=== PATIENT | male | born 1935 ===

== ENCOUNTER 2017-11-08 10:29 | Inpatient (IN) | payer MEDICARE ==
[2017-11-08 10:49] VITALS: BMI 22.6
[2017-11-08] MEDS ORDERED: Sodium Chloride 0.9% 1,000 ML IV STA (11:02)
--- NOTE | 2017-11-08 11:07 | ED PDOC ---
HPI: SOB/CHF/COPD Time Seen by Provider: 11/08/17 10:44 Chief Complaint (Nursing): Shortness Of Breath Chief Complaint (Provider): shortness of breath History Per: Patient, Pathology Tech (RN) History/Exam Limitations: other (poor historian) Onset/Duration Of Symptoms: Days (2 days), Waxing/Waning, Gradual Current Symptoms Are (Timing): Still Present Initiating Event: Upper Respiratory Illness Exacerbating Factor(s): Coughing Current Respiratory Medications: Albuterol Severity: Severe Associated Symptoms: Chills, Productive Cough, Heart Racing, Dizziness Additional Complaint(s): 82yo male arrives via EMS c/o SOB and dizziness, states "had the flu" about 2 weeks ago, self-treated, no Rx medications taken and didnt see PMD, last 2 days "feeling worse" associated w cough, dizziness and generalized weakness. Per EMS has Rx medications at home but bottles just labeled "heart and pain", unsure what medications were. Patient is poor historian and unable to verbalize his prior history. Per [facility] first time in [facility] ED. PMD Gastell? (also sees a homeopathic doctor?) Past Medical History Reviewed: Historical Data, Nursing Documentation, Vital Signs, Unable To Obtain (poor historian) Vital Signs: Last Vital Signs Temp 98.2 F 11/12/17 12:00 Pulse 158 H 11/12/17 14:19 Resp 16 11/12/17 12:00 BP 129/80 11/12/17 12:00 Pulse Ox 97 11/12/17 12:00 - Family History Family History: States: Unknown Family Hx - Living Arrangements Living Arrangements: With Family - Social History Current smoker - smoking cessation education provided: No - Home Medications Home Medications: Ambulatory Orders Medication Instructions Recorded Albuterol/Ipratropium [Duoneb 3 3 ml IH Q6H PRN 11/08/17 mg/0.5 mg (3 ml) UD] - Allergies Allergies/Adverse Reactions: Allergies Allergy/AdvReac Type Severity Reaction Status Date / Time No Known Allergies Allergy Verified 11/08/17 11:01 Review of Systems Constitutional: Positive for: Weakness, Malaise Eyes: Negative for: Eyelid Inflammation ENT: Positive for: Throat Pain. Negative for: Ear Pain Cardiovascular: Positive for: Palpitations, Orthopnea Respiratory: Positive for: Cough, Shortness of Breath, Pleuritic Pain Gastrointestinal: Negative for: Abdominal Pain Genitourinary Male: Negative for: Dysuria Musculoskeletal: Negative for: Neck Pain, Leg Pain Skin: Negative for: Rash, Lesions Neurological: Positive for: Weakness (generalized). Negative for: Change in Speech, Seizures, Dizziness Physical Exam - Reviewed Nursing Documentation Reviewed: Yes Vital Signs Reviewed: Yes - Physical Exam Appears: Positive for: Non-toxic Head Exam: Positive for: ATRAUMATIC, NORMAL INSPECTION, NORMOCEPHALIC Skin: Positive for: Normal Color, Warm, DRY Eye Exam: Positive for: EOMI, Normal appearance, PERRL ENT: Positive for: Normal ENT Inspection Neck: Positive for: Normal, Painless ROM Cardiovascular/Chest: Positive for: Tachycardia, Irregularly Irregular Respiratory: Positive for: Rhonchi, Respiratory Distress (mild), Other (+ tachypnea) Gastrointestinal/Abdominal: Positive for: Bowel Sounds, Soft. Negative for: Tenderness Back: Positive for: Normal Inspection Extremity: Positive for: Normal ROM. Negative for: Calf Tenderness, Swelling Neurologic/Psych: Positive for: Alert. Negative for: Motor/Sensory Deficits ( no assymetry), Aphasia, Facial Droop - Laboratory Results Result Diagrams: 11/12/17 04:20 11/12/17 04:20 - ECG ECG: Positive for: Interpreted By Me ECG Rhythm: Positive for: Atrial Fibrillation, ST/T Changes (lateral), Nonspecific Changes Interpretation Of ECG: RVR Rate: 158 - Radiology X-Ray: Interpreted by Ia X-Ray Interpretation: Infiltrates - Critical Care Total Time (In Min): 90 Comments: patient required immediate and persisent bedside attention for respiratory failure and unstable vitals Medical Decision Making Medical Decision Making: workup initiated for Afib w RVR in setting of reported recent URI/ flu like symptoms. Unclear history, denies prior knowledge of Afib? BP borderline, IVF bolus initiated BP improved after 500ml and cardizem 10mg iv given w improvement of HR labs reviewed, lactate 3.5 WBC normal moderate anemia mild elev transaminases marked elev BNP 12K trop neg BP remained borderline but RVR persisted, digoxin load initiated CXR grossly abnormal w pleural thickening and bilateral patchy infiltrates CT chest ordered, +fibrosis with honeycombing, possible underlying infectious process also Antibiotics initiated vanco/zosyn after blood cultures obtained Dr Blake covering PMD Dr Gastell contacted for admission Repeat lactate improved but remains in Afib w RVR and borderline BP Admit ICU d/w Dr Dickinson approx 230p 445p Dr Dickinson ordered BIPAP, afterwards patient became mildly agitated w hypoxia , FIO2 increased on BIPAP to 80% but BIPAP poorly tolerated, VAPOTHERM ordered ABG ordered Dr Lou boudreaux in ED, agrees w plan Dr Garber cardiology aware 710p awaiting ICU bed. Moderate respiratory distress, on bipap w increasing O2 requirements. Recd lasix 40mg given repeat CXR showing worsening evidence of CHF w elev BNP. May require intubation, family is ok with it. D/w Dr Wilson overnight ICU coverage for awareness. Must be transported to ICU on bipap. Dr Ashby ED attending aware. Disposition - Clinical Impression Clinical Impression: Respiratory failure, Atrial fibrillation with RVR, Pneumonia, Severe sepsis - Patient ED Disposition Is Patient to be Admitted: Yes Counseled Patient/Family Regarding: Studies Performed, Diagnosis - Disposition Disposition Time: 14:00 Condition: CRITICAL - Pt Status Changed To: Hospital Disposition Of: Inpatient - Admit Certification Admit to Inpatient:: After my assessment, the patient will require hospitalization for at least two midnights. This is because of the severity of symptoms shown, intensity of services needed, and/or the medical risk in this patient being treated as an outpatient.
[2017-11-08 11:28] LABS: ALB/GLOB RATIO 0.7 (1.0-2.1); ALBUMIN 3.5 g/dL (3.5-5.0); ALT/SGPT 101 U/L (21-72); AST/SGOT 187 U/L (17-59); BLOOD UREA NITROGEN 36 mg/dl (9-20); CALCIUM 9.1 mg/dL (8.4-10.2); GFR AFRICAN-AMERICAN > 60; GFR NON-AFRICAN AMERICAN > 60
[2017-11-08 11:34] LABS: BASO % 0.2 % (0.0-2.0); EOS % 0.2 % (0.0-4.0); HEMOGLOBIN 10.7 g/dL (12.0-18.0); LYMPH # 1.4 K/uL (1.0-4.3); LYMPH % 14.6 % (20.0-40.0); MEAN CELL VOLUME 90.4 fl (80.0-94.0); MEAN CORPUSCULAR HEMOGLOBIN 29.6 pg (27.0-31.0); MEAN CORPUSCULAR HGB CONC 32.7 g/dL (33.0-37.0); MONO # 0.5 K/uL (0.0-0.8); MONO % 5.4 % (0.0-10.0); NEUT # 7.8 K/uL (1.8-7.0); NEUT % 79.6 % (50.0-75.0); NRBC % 0.3 % (0.0-0.0); RBC 3.61 Mil/uL (4.40-5.90); WHITE BLOOD COUNT 9.8 K/uL (4.8-10.8)
[2017-11-08 11:40] LABS: B-TYPE NATRIURETIC PEPTIDE 12500 pg/ml (0-900)
[2017-11-08 11:42] LABS: INR 1.5 (0.9-1.2); PARTIAL THROMBOPLASTIN TIME 24.9 Seconds (25.6-37.1); PROTHROMBIN TIME 16.3 Seconds (9.8-13.1)
[2017-11-08 11:43] LABS: VENOUS BLOOD GAS BASE EXCESS -0.9 mmol/L (0.0-2.0); VENOUS BLOOD GAS PCO2 53 mmHg (40-60); VENOUS BLOOD GAS PO2 26 mm/Hg (30-55)
[2017-11-08] MEDS ORDERED: Digoxin 500 mcg/2ml (0.5 mg/2ml) Inj IVP STA ×2 (12:07→21:21)
[2017-11-08] MEDS ORDERED: Digoxin 500 mcg/2ml (0.5 mg/2ml) Inj ONE (12:12)
--- NOTE | 2017-11-08 13:53 | CT ---
PROCEDURE: CT scan chest 11/08/2017 HISTORY: Correlation made with chest radiograph dated 11/08/2017 TECHNIQUE: Contiguous helical/transaxial images were obtained through the chest without intravenous contrast enhancement. Sagittal and coronal reconstructions were performed. Radiation dose (DLP): mGy-cm. This CT exam was performed using one or more of the following dose reduction techniques: Automated exposure control, adjustment of the mA and/or kV according to patient size, and/or use of iterative reconstruction technique. FINDINGS: LUNGS: The current study reveals diffuse bilateral interstitial fibrosis with honeycombing and areas of bronchiectasis throughout the upper and lower lobes . Superimposed on infectious process in the upper lobes most notably in the upper lung parks cannot be excluded. . Scarring and chronic atelectasis both lung bases. Thin crescentic calcifications presumably surrounding a chronic right basilar granulation tissue (residua of a loculated pleural effusion) There is also a pleural thickening in the left lung bases likely due to post inflammation is well. Calcifications appear restricted to the lower lung parks though correlation with history recommended to exclude asbestos exposure. MEDIASTINUM: Heart is enlarged. There is aneurysmal dilatation of the ascending thoracic aorta measuring approximately 4.55 cm. Descending thoracic aorta measures approximately 3.3 cm. Pulmonary trunk measures approximately 3.9 cm; rule out underlying pulmonary arterial hypertension. Central airways are midline and patent. No large central endoluminal lesions. PLEURA: No evidence of pneumothorax of or significant pleural effusion. BONES: Mild multilevel degenerative spondylosis of the thoracic spine. UPPER ABDOMEN: Small calcific density within the splenic parenchyma consistent with prior exposure to granulomatous disease process. . Suspect incompletely visualized right renal cyst with what appears to contain peripheral show like calcification on. Followup ultrasound could be performed for further evaluation. OTHER FINDINGS: None. IMPRESSION: Significant interstitial fibrosis with honeycombing and bronchiectasis on most notably affecting the upper lobes. Superimposed infection not excluded. There also areas of presumed chronic atelectasis/scarring both lung bases with what appears represent a crescentic shaped area low-attenuation surrounded by a peripheral calcification likely representing a chronic granulation tissue (residua of a chronic loculated effusion). There is also crescentic pleural based calcification left posterior sulcus. See above discussion for additional findings details and recommendations.
[2017-11-08] MEDS ORDERED: Piperacillin/Tazobact 4.5 GM in Sodium Chloride 0.9% 100 ML IVPB STA (14:00)
[2017-11-08 14:26] LABS: VENOUS BLOOD GAS BASE EXCESS 1.1 mmol/L (0.0-2.0); VENOUS BLOOD GAS PCO2 56 mmHg (40-60); VENOUS BLOOD GAS PO2 27 mm/Hg (30-55); VENOUS BLOOD PH 7.31 (7.32-7.43)
--- NOTE | 2017-11-08 14:26 | RAD ---
HISTORY: SOB COMPARISON: No prior. FINDINGS: LUNGS: Diffuse interstitial fibrosis with confluent areas all opacification throughout the upper and lower lobes. Note that the possibility of underlying infectious process cannot be excluded PLEURA: No significant pleural effusion identified, no pneumothorax apparent. CARDIOVASCULAR: Normal. OSSEOUS STRUCTURES: No significant abnormalities. VISUALIZED UPPER ABDOMEN: Normal. OTHER FINDINGS: None. IMPRESSION: Diffuse interstitial fibrosis; superimposed infection not excluded.
[2017-11-08] MEDS ORDERED: Albuterol-Ipratrop 3 mg / 0.5 (3 ml) UD INH STA (17:00)
[2017-11-08 17:30] LABS: ABG ALLEN TEST YES; ARTERIAL BLOOD GAS HCO3 24.1 mmol/L (21-28); ARTERIAL BLOOD GAS O2 SAT 99.5 % (95-98); ARTERIAL BLOOD GAS PCO2 45 mm/Hg (35-45); ARTERIAL BLOOD GAS PH 7.35 (7.35-7.45); ARTERIAL BLOOD GAS PO2 198 mm/Hg (80-100); ARTERIAL BLOOD GAS TCO2 26.2 mmol/L (22-28)
[2017-11-08 18:43] LABS: BARBITURATES, UR NEGATIVE (NEGATIVE); BENZODIAZEPINES, UR NEGATIVE (NEGATIVE); OPIATES, UR NEGATIVE (NEGATIVE); PHENCYCLIDINE, UR NEGATIVE (NEGATIVE)
[2017-11-08] MEDS ORDERED: Albuterol-Ipratrop 3 mg / 0.5 (3 ml) UD ONE (18:48)
--- NOTE | 2017-11-08 20:16 | CP.PCM.CON ---
History of Present Illness - History of Present Illness History of Present Illness: Attending: Lou Hutchinson MD PCP: Wenceslao Duong MD Reason for consult : Critical care management Chief complaint: SOB The patient was seen and examined in the ED HPI: The hx was obtained from patient's family and after review of the medical records, He is an 82 years old male with no significant past medical hx. was treated for Influenza 3 weeks ago, improved his flu-like symptoms. Few days later he began having SOB which became progressively worse, associated with chest and abdominal pain. He saw his Holistic Doctor one day before this admission, where he was told that he has an inflamed thyroid. He is brought to the ED with worsening SOB, Chills, Palpitation and dizziness. PMH: Arthritis PSH: Hemorrhoidectomy SH: Former smoker; No illegal drug use, No Alcohol; live with the family, Worked in a [employer] FH: States: no known family hx Allergies: NKDA Medication: reviewed - Living Arrangements Living Arrangements: With Family - Social History Current smoker - smoking cessation education provided: No Review of Systems - Review of Systems Systems not reviewed;Unavailable: Respiratory Distress Review of Systems: Review of system limited as patient is restless on a BIPAP Past Patient History - Past Medical History & Family History Past Medical History?: No - Past Social History Smoking Status: Former Smoker Chewing Tobacco Use: No Cigar Use: No Alcohol: None Drugs: Denies Home Situation {Lives}: With Family - CARDIAC Hx Cardiac Disorders: No - PULMONARY Hx Respiratory Disorders: No - NEUROLOGICAL Hx Neurological Disorder: No - HEENT Hx HEENT Problems: No - ENDOCRINE/METABOLIC Hx Endocrine Disorders: No Other/Comment: as per family ? thyroid problem - HEMATOLOGICAL/ONCOLOGICAL Hx Blood Disorders: No - INTEGUMENTARY Hx Dermatological Problems: No - MUSCULOSKELETAL/RHEUMATOLOGICAL Hx Musculoskeletal Disorders: Yes Hx Arthritis: Yes - GASTROINTESTINAL Hx Gastrointestinal Disorders: No - GENITOURINARY/GYNECOLOGICAL Hx Genitourinary Disorders: No - PSYCHIATRIC Hx Psychophysiologic Disorder: No Hx Substance Use: No - SURGICAL HISTORY Hx Surgeries: Yes Other/Comment: hemorrhoid sx - ANESTHESIA Hx Anesthesia: Yes Hx Anesthesia Reactions: No Meds Allergies/Adverse Reactions: Allergies Allergy/AdvReac Type Severity Reaction Status Date / Time No Known Allergies Allergy Verified 11/08/17 11:01 - Medications Medications: Current Medications Oseltamivir Phosphate (Tamiflu) 30 mg PO BID YESENIA PRN Reason: Protocol Last Admin: 11/08/17 18:11 Dose: 30 mg Verapamil HCl (Verapamil Inj) 2.5 mg IVP Q4H PRN PRN Reason: Until an adequate response is Physical Exam - Constitutional Appears: In Acute Distress, Agitated - Head Exam Head Exam: ATRAUMATIC, NORMAL INSPECTION, NORMOCEPHALIC - Eye Exam Eye Exam: EOMI, PERRL Pupil Exam: NORMAL ACCOMODATION - ENT Exam ENT Exam: Mucous Membranes Moist, Normal External Ear Exam, Normal Oropharynx - Neck Exam Neck exam: Positive for: Full Rom, Normal Inspection. Negative for: Lymphadenopathy, Tenderness - Respiratory Exam Respiratory Exam: absent: Rhonchi, Wheezes Additional comments: Inspiratory and expiratory coarse crackles - Cardiovascular Exam Cardiovascular Exam: Tachycardia, Irregular Rhythm, +S1, +S2 - GI/Abdominal Exam GI & Abdominal Exam: Normal Bowel Sounds, Soft. absent: Mass, Organomegaly, Tenderness - Rectal Exam Rectal Exam: Deferred - Extremities Exam Additional comments: Edema to the Right lower extremity Fingers at both hands contracted in extension and deviation to the ulnar side. - Back Exam Back exam: NORMAL INSPECTION. absent: CVA tenderness (L), CVA tenderness (R) - Neurological Exam Additional comments: Patient SOB, agitated, moving all extremities, removing the BIPAP, no facial droop, motor strength 5/5 in all extremities. no focal neurological findings. - Skin Skin Exam: Dry, Intact, Normal Color, Warm Results - Vital Signs Recent Vital Signs: Last Vital Signs Temp 98.9 F 11/08/17 16:14 Pulse 158 H 11/08/17 19:36 Resp 28 H 11/08/17 17:33 BP 135/118 H 11/08/17 19:01 Pulse Ox 98 11/08/17 16:14 - Labs Result Diagrams: 11/08/17 11:05 11/08/17 11:05 Labs: Laboratory Results - last 24 hr 11/08/17 11/08/17 11/08/17 11:00 11:05 11:05 WBC 9.8 RBC 3.61 L Hgb 10.7 L Hct 32.7 L MCV 90.4 MCH 29.6 MCHC 32.7 L RDW 15.0 H Plt Count 463 H MPV 7.0 L Neut % (Auto) 79.6 H Lymph % (Auto) 14.6 L [place] % (Auto) 5.4 Eos % (Auto) 0.2 Baso % (Auto) 0.2 Neut # (Auto) 7.8 H Lymph # (Auto) 1.4 [place] # (Auto) 0.5 Eos # (Auto) 0.0 Baso # (Auto) 0.0 PT INR APTT pCO2 pO2 26 L HCO3 ABG pH ABG Total CO2 ABG O2 Saturation ABG Base Excess Garrick Test ABG Potassium VBG pH 7.30 L VBG pCO2 53 VBG HCO3 22.7 VBG Total CO2 27.7 VBG O2 Sat (Calc) 31.0 L VBG Base Excess -0.9 L VBG Potassium 4.3 A-a O2 Difference Sodium 140.0 144 Chloride 109.0 H 102 Glucose 176 H Lactate 3.5 H Vent Mode FiO2 21.0 Potassium 4.7 Carbon Dioxide 26 Anion Gap 21 H BUN 36 H Creatinine 1.1 Est GFR ( Amer) > 60 Est GFR (Non-Af Amer) > 60 Random Glucose 189 H Lactic Acid Calcium 9.1 Total Bilirubin 0.7 AST 187 H ALT 101 H Alkaline Phosphatase 122 Troponin I 0.0400 NT-Pro-B Natriuret Pep 27325 H Total Protein 8.4 H Albumin 3.5 Globulin 5.0 H Albumin/Globulin Ratio 0.7 L Arterial Blood Potassium Venous Blood Potassium 4.3 Urine Opiates Screen Urine Methadone Screen Ur Barbiturates Screen Ur Phencyclidine Scrn Ur Amphetamines Screen U Benzodiazepines Scrn U Oth Cocaine Metabols U Cannabinoids Screen Influenza Typ A,B (EIA) 11/08/17 11/08/17 11/08/17 11:05 11:05 14:01 WBC RBC Hgb Hct MCV MCH MCHC RDW Plt Count MPV Neut % (Auto) Lymph % (Auto) [place] % (Auto) Eos % (Auto) Baso % (Auto) Neut # (Auto) Lymph # (Auto) [place] # (Auto) Eos # (Auto) Baso # (Auto) PT 16.3 H INR 1.5 H APTT 24.9 L pCO2 pO2 27 L HCO3 ABG pH ABG Total CO2 ABG O2 Saturation ABG Base Excess Garrick Test ABG Potassium VBG pH 7.31 L VBG pCO2 56 VBG HCO3 24.4 VBG Total CO2 29.9 H VBG O2 Sat (Calc) 36.9 L VBG Base Excess 1.1 VBG Potassium 4.5 A-a O2 Difference Sodium 141.0 Chloride 108.0 H Glucose 140 H Lactate 2.4 H Vent Mode FiO2 21.0 Potassium Carbon Dioxide Anion Gap BUN Creatinine Est GFR ( Amer) Est GFR (Non-Af Amer) Random Glucose Lactic Acid Calcium Total Bilirubin AST ALT Alkaline Phosphatase Troponin I NT-Pro-B Natriuret Pep Total Protein Albumin Globulin Albumin/Globulin Ratio Arterial Blood Potassium Venous Blood Potassium 4.5 Urine Opiates Screen Urine Methadone Screen Ur Barbiturates Screen Ur Phencyclidine Scrn Ur Amphetamines Screen U Benzodiazepines Scrn U Oth Cocaine Metabols U Cannabinoids Screen Influenza Typ A,B (EIA) Negative for flu a/b 11/08/17 11/08/17 11/08/17 16:03 16:03 17:23 WBC RBC Hgb Hct MCV MCH MCHC RDW Plt Count MPV Neut % (Auto) Lymph % (Auto) [place] % (Auto) Eos % (Auto) Baso % (Auto) Neut # (Auto) Lymph # (Auto) [place] # (Auto) Eos # (Auto) Baso # (Auto) PT INR APTT pCO2 45 pO2 198 H HCO3 24.1 ABG pH 7.35 ABG Total CO2 26.2 ABG O2 Saturation 99.5 H ABG Base Excess -1.1 Garrick Test Yes ABG Potassium 4.7 VBG pH VBG pCO2 VBG HCO3 VBG Total CO2 VBG O2 Sat (Calc) VBG Base Excess VBG Potassium A-a O2 Difference 316.0 Sodium 140.0 Chloride 110.0 H Glucose 186 H Lactate 1.7 Vent Mode High flow lpm FiO2 80.0 Potassium Carbon Dioxide Anion Gap BUN Creatinine Est GFR ( Amer) Est GFR (Non-Af Amer) Random Glucose Lactic Acid 1.7 Calcium Total Bilirubin AST ALT Alkaline Phosphatase Troponin I 0.0670 NT-Pro-B Natriuret Pep Total Protein Albumin Globulin Albumin/Globulin Ratio Arterial Blood Potassium 4.7 Venous Blood Potassium Urine Opiates Screen Urine Methadone Screen Ur Barbiturates Screen Ur Phencyclidine Scrn Ur Amphetamines Screen U Benzodiazepines Scrn U Oth Cocaine Metabols U Cannabinoids Screen Influenza Typ A,B (EIA) 11/08/17 11/08/17 18:10 19:29 WBC RBC Hgb Hct MCV MCH MCHC RDW Plt Count MPV Neut % (Auto) Lymph % (Auto) [place] % (Auto) Eos % (Auto) Baso % (Auto) Neut # (Auto) Lymph # (Auto) [place] # (Auto) Eos # (Auto) Baso # (Auto) PT INR APTT pCO2 pO2 HCO3 ABG pH ABG Total CO2 ABG O2 Saturation ABG Base Excess Garrick Test ABG Potassium VBG pH VBG pCO2 VBG HCO3 VBG Total CO2 VBG O2 Sat (Calc) VBG Base Excess VBG Potassium A-a O2 Difference Sodium Chloride Glucose Lactate Vent Mode FiO2 Potassium Carbon Dioxide Anion Gap BUN Creatinine Est GFR ( Amer) Est GFR (Non-Af Amer) Random Glucose Lactic Acid 3.3 H Calcium Total Bilirubin AST ALT Alkaline Phosphatase Troponin I NT-Pro-B Natriuret Pep Total Protein Albumin Globulin Albumin/Globulin Ratio Arterial Blood Potassium Venous Blood Potassium Urine Opiates Screen Negative Urine Methadone Screen Negative Ur Barbiturates Screen Negative Ur Phencyclidine Scrn Negative Ur Amphetamines Screen Negative U Benzodiazepines Scrn Negative U Oth Cocaine Metabols Negative U Cannabinoids Screen Negative Influenza Typ A,B (EIA) - EKG Data EKG comments: A Fib with RVR Heart rate of 158mmHg - Imaging and Cardiology Chest x-ray Status: Image reviewed by me Additional comment: Diffuse interstitial Honeycombingin both lung parks Assessment & Plan - Assessment and Plan (Free Text) Assessment: #. A Fib with RVR #. CHF #. Post influenza Pneumonia #. Dehydration #. Anemia #. Hyperglycemia Plan: 82 years old male with no significant past medical hx. was treated for Influenza 3 weeks ago, improved his flu-like symptoms. Few days later he began having SOB which became progressively worse, associated with chest and abdominal pain. #. SOB caused by Acute CHF and Pulmonary fibrosis - Consult Dr Garber cardiology - lasix IV - ECHO to evaluate EF - Treat Pulmonary Fibrosis with Oxygen - Bronchodilaters Albuterol and Ipratropium - Methylprednisolone #. A Fib with RVR - Cardiology on consult - rate control with Verapamil - Digoxin - Lovenox therapeutic #. r/o Post influenza Pneumonia - Procalcitonin - Zosyn - Vancomycin #. Anemia - Follow B12 and Folate - Follow Hb #. Hyperglycemia - HbA1c #. Stress Ulcer Prophylaxis with Pantoprazole #. DVT prophylaxis with SCD. - Patient on lovenox #. Code Status Full - Date & Time Date: 11/08/17 Time: 20:16
[2017-11-08] MEDS ORDERED: Midazolam 2 MG/2 ML VIAL ONE (20:32)
[2017-11-08] MEDS ORDERED: Chlorhexidine Gluconate 1 APPL/PKT TP ONE (20:50)
[2017-11-08] MEDS ORDERED: Propofol 10 mg/ml 1,000 MG/100 ML VIAL ONE (20:59)
[2017-11-08] MEDS ORDERED: Midazolam 2 MG/2 ML VIAL IV ONE (21:23)
[2017-11-08] MEDS ORDERED: Midazolam 2 MG/2 ML VIAL IV STA (21:24)
--- NOTE | 2017-11-08 21:40 | CP.PCM.HP ---
History of Present Illness - History of Present Illness History of Present Illness: 82 yrs old male Ad with Respiratory Failure Hx of 2 weeks [employer] was with cough , Chest congestion , SOB , He treated himself with " natural medicines" with partial improvement, past week with progressive cough SOB , NARANJO , He was seen in [facility] ER with Respiratory Failure, as per , Afib RVR , treated With Cardizem Drip , Digoxin , BIPAP 80% FIO2 , Vapotherm , Solu medrol , DuoNeb, Heart rate improved, Patient was not keeping BIPAP, there after Patient was intubated Patient poor historian , as per smoker, quit 30 yrs ago , 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 Two yrs ago He was send by PMD to Pulmonary Dr , treated with hand held "inhaler" patient used it for few weeks and DC by himself , Hx of poor compliance with medications and Dr visits , He prefers 'natural medicines" Rx by " [facility] [employer] [facility] Dr", as per Patient's progressive SOB , NARANJO in the past 2 yrs , currently NARANJO to less than on block. CT Chest marked chronic changes , interstitial fibrosis , honeycombing , bronchiectasis, peripheral pleural base calcification , pleural calcification Present on Admission - Present on Admission Any Indicators Present on Admission: No Review of Systems - Review of Systems Systems not reviewed;Unavailable: Acuity of Condition (unable to answer questions.) Past Patient History - Past Social History Smoking Status: Former Smoker Home Situation {Lives}: With Family - PULMONARY Hx Chronic Obstructive Pulmonary Disease (COPD): Yes - NEUROLOGICAL Hx Neurological Disorder: No - HEENT Hx HEENT Problems: No - RENAL Hx Chronic Kidney Disease: No - ENDOCRINE/METABOLIC Other/Comment: as per family ? thyroid problem - HEMATOLOGICAL/ONCOLOGICAL Hx Blood Disorders: No - INTEGUMENTARY Hx Dermatological Problems: No - MUSCULOSKELETAL/RHEUMATOLOGICAL Hx Arthritis: Yes - GASTROINTESTINAL Hx Gastrointestinal Disorders: No - GENITOURINARY/GYNECOLOGICAL Hx Genitourinary Disorders: No - PSYCHIATRIC Hx Substance Use: No - SURGICAL HISTORY Hx Surgeries: Yes Other/Comment: hemorrhoid sx - ANESTHESIA Hx Anesthesia: Yes Hx Anesthesia Reactions: No Meds Allergies/Adverse Reactions: Allergies Allergy/AdvReac Type Severity Reaction Status Date / Time No Known Allergies Allergy Verified 11/08/17 11:01 Physical Exam - Constitutional Appears: In Acute Distress - Head Exam Head Exam: NORMAL INSPECTION - Eye Exam Eye Exam: PERRL - ENT Exam Additional comments: BIPAP - Neck Exam Neck exam: Positive for: Normal Inspection - Respiratory Exam Respiratory Exam: Decreased Breath Sounds, Rhonchi, Wheezes - Cardiovascular Exam Cardiovascular Exam: Tachycardia, Irregular Rhythm - GI/Abdominal Exam GI & Abdominal Exam: Normal Bowel Sounds, Soft - Extremities Exam Additional comments: ulnar deviation R L fingers , hallux valgus - Back Exam Back exam: NORMAL INSPECTION - Neurological Exam Additional comments: on BIPAP, no gross focall motor deficit , able to talk , moves all extremities - Psychiatric Exam Psychiatric exam: Anxious - Skin Skin Exam: Pallor Results - Vital Signs Recent Vital Signs: Last Vital Signs Temp 98.9 F 11/08/17 16:14 Pulse 158 H 11/08/17 20:31 Resp 28 H 11/08/17 17:33 BP 135/118 H 11/08/17 19:01 Pulse Ox 98 11/08/17 16:14 - Labs Result Diagrams: 11/11/17 04:20 11/11/17 04:20 Labs: Laboratory Results - last 24 hr 11/08/17 11/08/17 11/08/17 11:00 11:05 11:05 WBC 9.8 RBC 3.61 L Hgb 10.7 L Hct 32.7 L MCV 90.4 MCH 29.6 MCHC 32.7 L RDW 15.0 H Plt Count 463 H MPV 7.0 L Neut % (Auto) 79.6 H Lymph % (Auto) 14.6 L [place] % (Auto) 5.4 Eos % (Auto) 0.2 Baso % (Auto) 0.2 Neut # (Auto) 7.8 H Lymph # (Auto) 1.4 [place] # (Auto) 0.5 Eos # (Auto) 0.0 Baso # (Auto) 0.0 PT INR APTT pCO2 pO2 26 L HCO3 ABG pH ABG Total CO2 ABG O2 Saturation ABG Base Excess Garrick Test ABG Potassium VBG pH 7.30 L VBG pCO2 53 VBG HCO3 22.7 VBG Total CO2 27.7 VBG O2 Sat (Calc) 31.0 L VBG Base Excess -0.9 L VBG Potassium 4.3 A-a O2 Difference Sodium 140.0 144 Chloride 109.0 H 102 Glucose 176 H Lactate 3.5 H Vent Mode FiO2 21.0 Potassium 4.7 Carbon Dioxide 26 Anion Gap 21 H BUN 36 H Creatinine 1.1 Est GFR ( Amer) > 60 Est GFR (Non-Af Amer) > 60 Random Glucose 189 H Lactic Acid Calcium 9.1 Total Bilirubin 0.7 AST 187 H ALT 101 H Alkaline Phosphatase 122 Troponin I 0.0400 NT-Pro-B Natriuret Pep 59806 H Total Protein 8.4 H Albumin 3.5 Globulin 5.0 H Albumin/Globulin Ratio 0.7 L Procalcitonin Arterial Blood Potassium Venous Blood Potassium 4.3 Urine Opiates Screen Urine Methadone Screen Ur Barbiturates Screen Ur Phencyclidine Scrn Ur Amphetamines Screen U Benzodiazepines Scrn U Oth Cocaine Metabols U Cannabinoids Screen Influenza Typ A,B (EIA) 11/08/17 11/08/17 11/08/17 11:05 11:05 14:01 WBC RBC Hgb Hct MCV MCH MCHC RDW Plt Count MPV Neut % (Auto) Lymph % (Auto) [place] % (Auto) Eos % (Auto) Baso % (Auto) Neut # (Auto) Lymph # (Auto) [place] # (Auto) Eos # (Auto) Baso # (Auto) PT 16.3 H INR 1.5 H APTT 24.9 L pCO2 pO2 27 L HCO3 ABG pH ABG Total CO2 ABG O2 Saturation ABG Base Excess Garrick Test ABG Potassium VBG pH 7.31 L VBG pCO2 56 VBG HCO3 24.4 VBG Total CO2 29.9 H VBG O2 Sat (Calc) 36.9 L VBG Base Excess 1.1 VBG Potassium 4.5 A-a O2 Difference Sodium 141.0 Chloride 108.0 H Glucose 140 H Lactate 2.4 H Vent Mode FiO2 21.0 Potassium Carbon Dioxide Anion Gap BUN Creatinine Est GFR ( Amer) Est GFR (Non-Af Amer) Random Glucose Lactic Acid Calcium Total Bilirubin AST ALT Alkaline Phosphatase Troponin I NT-Pro-B Natriuret Pep Total Protein Albumin Globulin Albumin/Globulin Ratio Procalcitonin Arterial Blood Potassium Venous Blood Potassium 4.5 Urine Opiates Screen Urine Methadone Screen Ur Barbiturates Screen Ur Phencyclidine Scrn Ur Amphetamines Screen U Benzodiazepines Scrn U Oth Cocaine Metabols U Cannabinoids Screen Influenza Typ A,B (EIA) Negative for flu a/b 11/08/17 11/08/17 11/08/17 15:18 16:03 16:03 WBC RBC Hgb Hct MCV MCH MCHC RDW Plt Count MPV Neut % (Auto) Lymph % (Auto) [place] % (Auto) Eos % (Auto) Baso % (Auto) Neut # (Auto) Lymph # (Auto) [place] # (Auto) Eos # (Auto) Baso # (Auto) PT INR APTT pCO2 pO2 HCO3 ABG pH ABG Total CO2 ABG O2 Saturation ABG Base Excess Garrick Test ABG Potassium VBG pH VBG pCO2 VBG HCO3 VBG Total CO2 VBG O2 Sat (Calc) VBG Base Excess VBG Potassium A-a O2 Difference Sodium Chloride Glucose Lactate Vent Mode FiO2 Potassium Carbon Dioxide Anion Gap BUN Creatinine Est GFR ( Amer) Est GFR (Non-Af Amer) Random Glucose Lactic Acid 1.7 Calcium Total Bilirubin AST ALT Alkaline Phosphatase Troponin I 0.0670 NT-Pro-B Natriuret Pep Total Protein Albumin Globulin Albumin/Globulin Ratio Procalcitonin 0.29 Arterial Blood Potassium Venous Blood Potassium Urine Opiates Screen Urine Methadone Screen Ur Barbiturates Screen Ur Phencyclidine Scrn Ur Amphetamines Screen U Benzodiazepines Scrn U Oth Cocaine Metabols U Cannabinoids Screen Influenza Typ A,B (EIA) 11/08/17 11/08/17 11/08/17 17:23 18:10 19:29 WBC RBC Hgb Hct MCV MCH MCHC RDW Plt Count MPV Neut % (Auto) Lymph % (Auto) [place] % (Auto) Eos % (Auto) Baso % (Auto) Neut # (Auto) Lymph # (Auto) [place] # (Auto) Eos # (Auto) Baso # (Auto) PT INR APTT pCO2 45 pO2 198 H HCO3 24.1 ABG pH 7.35 ABG Total CO2 26.2 ABG O2 Saturation 99.5 H ABG Base Excess -1.1 Garrick Test Yes ABG Potassium 4.7 VBG pH VBG pCO2 VBG HCO3 VBG Total CO2 VBG O2 Sat (Calc) VBG Base Excess VBG Potassium A-a O2 Difference 316.0 Sodium 140.0 Chloride 110.0 H Glucose 186 H Lactate 1.7 Vent Mode High flow lpm FiO2 80.0 Potassium Carbon Dioxide Anion Gap BUN Creatinine Est GFR ( Amer) Est GFR (Non-Af Amer) Random Glucose Lactic Acid 3.3 H Calcium Total Bilirubin AST ALT Alkaline Phosphatase Troponin I NT-Pro-B Natriuret Pep Total Protein Albumin Globulin Albumin/Globulin Ratio Procalcitonin Arterial Blood Potassium 4.7 Venous Blood Potassium Urine Opiates Screen Negative Urine Methadone Screen Negative Ur Barbiturates Screen Negative Ur Phencyclidine Scrn Negative Ur Amphetamines Screen Negative U Benzodiazepines Scrn Negative U Oth Cocaine Metabols Negative U Cannabinoids Screen Negative Influenza Typ A,B (EIA) Assessment & Plan (1) Respiratory failure Status: Acute Priority: High (2) Atrial fibrillation with RVR Status: Acute Priority: High (3) COPD exacerbation Status: Acute Priority: High (4) Pneumonia Status: Acute Priority: High (5) CHF (congestive heart failure) Status: Acute (6) Sepsis Status: Acute - Assessment and Plan (Free Text) Plan: Ventilatory support , DuoNeb , Zosyn , Vanco ,Solu Medrol , Tamiflu , Heart rate control , f/u Cardiac consult, f/u Trachasp C-S , blood C-S - Date & Time Date: 11/08/17 Time: 12:00
--- NOTE | 2017-11-08 21:41 | PCM.ANES ---
Anesthesia Emergent Intubation - Diagnosis Working Diagnosis:: Pneumonia - Consult Reason for Consult:: respiratory failure - Intubation Attempts Previous Number of Intubation Attempts:: 6 - Pre-Intubation Vital Signs Blood Pressure: 140/91 Heart Rate: 112 Respiratory Rate: 32 O2 Sat: 91 FIO2: 1 Oxygen Delivery Method: Ambu-Bag Level Of Consciousness: Sedated Intubation Meds Given: Propofol - Airway Management Oropharyngeal Area Suctioned: Yes PreOxygenation: 1 Inhalation: No Rapid Sequence: No Cricoid Pressure: Yes Possible Aspiration: No - Method of Intubation Intubation Method: Oral ETT ETT Size: 7.5 Lipline@: 23 Easy: No (very anterior glottic opening) Atramatic: Yes - Intubation Devices Adri Blade Size Used: 4 Arlin Forcepts Used: No Henderson Scope Used: No Fiber Optic Scope: No - Placement Confirmation Breath Sounds Present & Equal Bilaterally: Yes Gurgling Sounds Not Audible at Epigastrum: Yes Positive EtCO2: Yes Portable CXR: No Recommendations: Ventilator, Chest X Ray, ABG - Post-Intubation Vital Signs Blood Pressure: 102/85 Heart Rate: 102 Respiratory Rate: 26 O2 Sat: 99 FIO2: 1
[2017-11-08] MEDS ORDERED: methylPREDNISolone 40 MG in Sodium Chloride 0.9% 50 ML IVPB SCH (22:00)
[2017-11-08] MEDS ORDERED: Pneumococcal 23-Valent Vaccine IM ONE (22:02)
[2017-11-08 22:18] LABS: ABG ALLEN TEST YES; ARTERIAL BLOOD GAS HCO3 22.4 mmol/L (21-28); ARTERIAL BLOOD GAS O2 SAT 100.5 % (95-98); ARTERIAL BLOOD GAS PCO2 53 mm/Hg (35-45); ARTERIAL BLOOD GAS PH 7.27 (7.35-7.45); ARTERIAL BLOOD GAS PO2 584 mm/Hg (80-100); ARTERIAL BLOOD GAS TCO2 25.9 mmol/L (22-28)
[2017-11-08] MEDS: MethylPREDNISolone 40 mg Vial IVP SCH (22:41)
[2017-11-08] MEDS: Piperacillin/Tazobact 3.375 GM in Sodium Chloride 0.9% 100 ML IVPB SCH (22:41)
[2017-11-08 23:13] LABS: TROPONIN I 0.084 ng/mL (0.00-0.120)
[2017-11-09] MEDS ORDERED: Enoxaparin 60 mg Syringe SC STA (00:09)
[2017-11-09] MEDS: Albuterol-Ipratrop 3 mg / 0.5 (3 ml) UD INH SCH ×7 (00:29→23:30)
[2017-11-09] MEDS ORDERED: Propofol 10 mg/ml 1,000 MG/100 ML VIAL IV SCH ×2 (01:45→19:45)
[2017-11-09] MEDS: Piperacillin/Tazobact 3.375 GM in Sodium Chloride 0.9% 100 ML IVPB SCH ×4 (04:53→22:03)
[2017-11-09] MEDS: MethylPREDNISolone 40 mg Vial IVP SCH ×4 (04:53→21:59)
[2017-11-09 05:55] LABS: ABG ALLEN TEST YES; ARTERIAL BLOOD GAS HCO3 25.4 mmol/L (21-28); ARTERIAL BLOOD GAS O2 SAT 99.7 % (95-98); ARTERIAL BLOOD GAS PCO2 47 mm/Hg (35-45); ARTERIAL BLOOD GAS PH 7.36 (7.35-7.45); ARTERIAL BLOOD GAS PO2 156 mm/Hg (80-100)
[2017-11-09 06:33] LABS: IRON 63 ug/dL (49-181)
[2017-11-09 06:43] LABS: % IRON SATURATION 26 % (20-55); TOTAL IRON BINDING CAPACITY 240 ug/dL (250-450)
--- NOTE | 2017-11-09 07:50 | RAD ---
HISTORY: intubated COMPARISON: 11/08/2017 FINDINGS: LUNGS: Diffuse bilateral pulmonary infiltrates minimally improved since prior examination. ETT is above the britni. PLEURA: No significant pleural effusion identified, no pneumothorax apparent. CARDIOVASCULAR: Cardiomegaly. OSSEOUS STRUCTURES: No significant abnormalities. VISUALIZED UPPER ABDOMEN: Normal. OTHER FINDINGS: None. IMPRESSION: Diffuse bilateral pulmonary infiltrates minimally improved since prior examination. ETT is above the britni.
--- NOTE | 2017-11-09 07:55 | RAD ---
HISTORY: SOB COMPARISON: 11/08/2017 FINDINGS: LUNGS: Extensive bilateral interstitial and alveolar infiltrates. Small bilateral pleural effusions. PLEURA: No significant pleural effusion identified, no pneumothorax apparent. CARDIOVASCULAR: Normal. OSSEOUS STRUCTURES: No significant abnormalities. VISUALIZED UPPER ABDOMEN: Normal. OTHER FINDINGS: None. IMPRESSION: Extensive bilateral interstitial and alveolar infiltrates. Small bilateral pleural effusions.
[2017-11-09 08:02] LABS: BLOOD UREA NITROGEN 40 mg/dl (9-20); CALCIUM 8.5 mg/dL (8.4-10.2); GFR AFRICAN-AMERICAN > 60; GFR NON-AFRICAN AMERICAN 58
--- NOTE | 2017-11-09 08:05 | RAD ---
HISTORY: Reevaluate COMPARISON: No prior. FINDINGS: LUNGS: Diffuse bilateral interstitial infiltrates. Tracheostomy tube in place. Bilateral pleural effusions, right greater than left. PLEURA: Small bilateral pleural effusions. Question left chest tube in place. CARDIOVASCULAR: Normal. OSSEOUS STRUCTURES: No significant abnormalities. VISUALIZED UPPER ABDOMEN: Normal. OTHER FINDINGS: None. IMPRESSION: Diffuse bilateral interstitial infiltrates. Tracheostomy tube in place. Bilateral pleural effusions, right greater than left.
[2017-11-09] MEDS ORDERED: Sodium Chloride 3% for Inhalation 4 ML VIAL.NEB IH PRN (08:27)
[2017-11-09] MEDS: Enoxaparin 60 mg Syringe SC SCH ×2 (08:27→21:58)
--- NOTE | 2017-11-09 08:38 | CP.CCUPN ---
CCU Subjective - Physician Review Subjective (Free Text): pATIENT INTUBATED on 40% Fio2 copious amount of browish secretions, overnight intubated Critical Care Time Spent (in minutes): 35 CCU Objective - Vital Signs / Intake & Output Vital Signs (Last 4 hours): Vital Signs Pulse Resp BP Pulse Ox 11/09/17 08:26 90/66 L 11/09/17 06:49 101 H 16 100/54 L 100 11/09/17 06:00 102 H 16 98/69 L 100 11/09/17 05:00 103 H 24 98/70 L 100 Intake and Output (Last 8hrs): Intake & Output 11/08/17 11/09/17 11/09/17 22:59 06:59 14:59 Intake Total 470 25 Output Total 800 1400 Balance -800 -930 25 Intake: IV 470 25 Output: Urine 800 1400 Urethral (Weaver) 800 1400 - Physical Exam Physical Exam Limitations: Positive for: Other (sedated) Head: Positive for: Atraumatic, Normocephalic Extroacular Muscles: Positive for: EOMI Neck: Positive for: Normal Range of Motion Respiratory/Chest: Positive for: Good Air Exchange, Decreased Breath Sounds, Rhonchi Cardiovascular: Positive for: Normal S1, S2, Tachycardic Abdomen: Positive for: Normal Bowel Sounds Upper Extremity: Positive for: Normal Inspection Lower Extremity: Positive for: Normal Inspection Neurological: Positive for: Other (sedatd on ventilator) - Medications Active Medications: Active Medications Generic Name Dose Route Start Last Admin Trade Name Freq PRN Reason Stop Dose Admin Albuterol/Ipratropium 3 ml 11/09/17 00:00 11/09/17 07:21 Duoneb 3 Mg/0.5 Mg (3 Ml) Ud INH 3 ml RQ4 YESENIA Administration Enoxaparin Sodium 60 mg 11/09/17 09:00 11/09/17 08:27 Lovenox SC 60 mg Q12 YESENIA Administration Protocol Furosemide 20 mg 11/09/17 09:00 11/09/17 08:26 Lasix IVP Not Given DAILY YESENIA Piperacillin Sod/Tazobactam 100 mls @ 100 mls/hr 11/08/17 22:00 11/09/17 04: 53 Sod 3.375 gm/ Sodium Chloride IVPB 100 mls/hr Q6 YESENIA Administration Protocol Vancomycin HCl 1 gm/ Sodium 250 mls @ 166.667 mls/hr 11/09/17 03:00 11/09/17 08:31 Chloride IVPB 166.667 mls/hr Q12 YESENIA Administration Protocol Propofol 1,000 mg in 100 mls @ 1.905 mls/hr 11/09/17 01:45 11/09/17 07:07 Diprivan IV 11/10/17 01:35 10 mcg/kg/min .Q24H YESENIA 3.81 mls/hr Protocol Titration 5 MCG/KG/MIN Doxycycline Hyclate 100 mg/ 100 mls @ 100 mls/hr 11/09/17 09:00 Sodium Chloride IVPB 11/15/17 09:00 Q12 YESENIA Protocol Influenza Virus Vaccine 0.5 ml 11/10/17 09:00 Afluria (Pf)(18yr & Older) IM 11/10/17 09:01 .ONCE ONE Insulin Human Lispro 0 units 11/09/17 08:45 Humalog SC Q6H YESENIA Protocol Methylprednisolone 40 mg 11/08/17 22:00 11/09/17 04:53 Solu-Medrol IVP 40 mg Q6 YESENIA Administration Oseltamivir Phosphate 30 mg 11/08/17 17:00 11/09/17 08:27 Tamiflu PO 30 mg BID YESENIA Administration Protocol Pantoprazole Sodium 40 mg 11/09/17 09:00 11/09/17 08:27 Protonix Inj IVP 40 mg DAILY YESENIA Administration Verapamil HCl 2.5 mg 11/08/17 14:47 Verapamil Inj IVP Q4H PRN Until an adequate response is - Patient Studies Lab Studies: Lab Studies 11/09/17 11/09/17 11/09/17 Range/Units 07:30 05:45 05:35 WBC (4.8-10.8) K/uL RBC (4.40-5.90) Mil/uL Hgb (12.0-18.0) g/dL Hct (35.0-51.0) % MCV (80.0-94.0) fl MCH (27.0-31.0) pg MCHC (33.0-37.0) g/dL RDW (11.5-14.5) % Plt Count (130-400) K/uL MPV (7.2-11.7) fl Neut % (Auto) (50.0-75.0) % Lymph % (Auto) (20.0-40.0) % Burt % (Auto) (0.0-10.0) % Eos % (Auto) (0.0-4.0) % Baso % (Auto) (0.0-2.0) % Neut # (Auto) (1.8-7.0) K/uL Lymph # (Auto) (1.0-4.3) K/uL Burt # (Auto) (0.0-0.8) K/uL Eos # (Auto) (0.0-0.7) K/uL Baso # (Auto) (0.0-0.2) K/uL PT (9.8-13.1) Seconds INR (0.9-1.2) APTT (25.6-37.1) Seconds pCO2 47 H (35-45) mm/Hg pO2 156 H (30-55) mm/Hg HCO3 25.4 (21-28) mmol/L ABG pH 7.36 (7.35-7.45) ABG Total CO2 28.0 (22-28) mmol/L ABG O2 Saturation 99.7 H (95-98) % ABG Base Excess 0.6 (-2.0-3.0) mmol/L Garrick Test Yes ABG Potassium 4.1 (3.6-5.2) mmol/L VBG pH (7.32-7.43) VBG pCO2 (40-60) mmHg VBG HCO3 mmol/L VBG Total CO2 (22-28) mmol/L VBG O2 Sat (Calc) (40-65) % VBG Base Excess (0.0-2.0) mmol/L VBG Potassium (3.6-5.2) mmol/L A-a O2 Difference 70.0 mm/Hg Sodium 143 139.0 (132-148) mmol/L Chloride 107 109.0 H (98-107) mmol/L Glucose 154 H (75-110) mg/dL Lactate 1.2 (0.7-2.1) mmol/L Vent Mode A/c Mechanical Rate 16 FiO2 40.0 % Tidal Volume 400 PEEP 5 Blood Gas Comments Crit Value Called To Crit Value Called By Crit Value Read Back Blood Gas Notified Time Potassium 4.5 (3.6-5.0) MMOL/L Carbon Dioxide 22 (22-30) mmol/L Anion Gap 19 (10-20) BUN 40 H (9-20) mg/dl Creatinine 1.2 (0.8-1.5) mg/dl Est GFR ( Amer) > 60 Est GFR (Non-Af Amer) 58 POC Glucose (mg/dL) 142 H (65-110) mg/dL Random Glucose 141 H (75-110) mg/dL Lactic Acid (0.7-2.1) MMOL/L Calcium 8.5 (8.4-10.2) mg/dL Iron (49-181) ug/dL TIBC (250-450) ug/dL % Saturation (20-55) % Total Bilirubin (0.2-1.3) mg/dl AST (17-59) U/L ALT (21-72) U/L Alkaline Phosphatase (38-126) U/L Troponin I (0.00-0.120) ng/mL NT-Pro-B Natriuret Pep (0-900) pg/ml Total Protein (6.3-8.2) G/DL Albumin (3.5-5.0) g/dL Globulin (2.2-3.9) gm/dL Albumin/Globulin Ratio (1.0-2.1) Vitamin B12 (239-931) pg/mL Procalcitonin (0.19-0.49) NG/ML Arterial Blood Potassium 4.1 (3.6-5.2) mmol/L Venous Blood Potassium (3.6-5.2) mmol/L Urine Opiates Screen (NEGATIVE) Urine Methadone Screen (NEGATIVE) Ur Barbiturates Screen (NEGATIVE) Ur Phencyclidine Scrn (NEGATIVE) Ur Amphetamines Screen (NEGATIVE) U Benzodiazepines Scrn (NEGATIVE) U Oth Cocaine Metabols (NEGATIVE) U Cannabinoids Screen (NEGATIVE) Influenza Typ A,B (EIA) (NEGATIVE) 11/09/17 11/09/17 11/08/17 Range/Units 04:19 04:19 22:29 WBC (4.8-10.8) K/uL RBC (4.40-5.90) Mil/uL Hgb (12.0-18.0) g/dL Hct (35.0-51.0) % MCV (80.0-94.0) fl MCH (27.0-31.0) pg MCHC (33.0-37.0) g/dL RDW (11.5-14.5) % Plt Count (130-400) K/uL MPV (7.2-11.7) fl Neut % (Auto) (50.0-75.0) % Lymph % (Auto) (20.0-40.0) % Burt % (Auto) (0.0-10.0) % Eos % (Auto) (0.0-4.0) % Baso % (Auto) (0.0-2.0) % Neut # (Auto) (1.8-7.0) K/uL Lymph # (Auto) (1.0-4.3) K/uL Burt # (Auto) (0.0-0.8) K/uL Eos # (Auto) (0.0-0.7) K/uL Baso # (Auto) (0.0-0.2) K/uL PT (9.8-13.1) Seconds INR (0.9-1.2) APTT (25.6-37.1) Seconds pCO2 (35-45) mm/Hg pO2 (30-55) mm/Hg HCO3 (21-28) mmol/L ABG pH (7.35-7.45) ABG Total CO2 (22-28) mmol/L ABG O2 Saturation (95-98) % ABG Base Excess (-2.0-3.0) mmol/L Garrick Test ABG Potassium (3.6-5.2) mmol/L VBG pH (7.32-7.43) VBG pCO2 (40-60) mmHg VBG HCO3 mmol/L VBG Total CO2 (22-28) mmol/L VBG O2 Sat (Calc) (40-65) % VBG Base Excess (0.0-2.0) mmol/L VBG Potassium (3.6-5.2) mmol/L A-a O2 Difference mm/Hg Sodium (132-148) mmol/L Chloride (98-107) mmol/L Glucose (75-110) mg/dL Lactate (0.7-2.1) mmol/L Vent Mode Mechanical Rate FiO2 % Tidal Volume PEEP Blood Gas Comments Crit Value Called To Crit Value Called By Crit Value Read Back Blood Gas Notified Time Potassium (3.6-5.0) MMOL/L Carbon Dioxide (22-30) mmol/L Anion Gap (10-20) BUN (9-20) mg/dl Creatinine (0.8-1.5) mg/dl Est GFR ( Amer) Est GFR (Non-Af Amer) POC Glucose (mg/dL) (65-110) mg/dL Random Glucose (75-110) mg/dL Lactic Acid (0.7-2.1) MMOL/L Calcium (8.4-10.2) mg/dL Iron 63 (49-181) ug/dL TIBC 240 L (250-450) ug/dL % Saturation 26 (20-55) % Total Bilirubin (0.2-1.3) mg/dl AST (17-59) U/L ALT (21-72) U/L Alkaline Phosphatase (38-126) U/L Troponin I 0.0840 (0.00-0.120) ng/mL NT-Pro-B Natriuret Pep 30178 H (0-900) pg/ml Total Protein (6.3-8.2) G/DL Albumin (3.5-5.0) g/dL Globulin (2.2-3.9) gm/dL Albumin/Globulin Ratio (1.0-2.1) Vitamin B12 > 1000 H (239-931) pg/mL Procalcitonin (0.19-0.49) NG/ML Arterial Blood Potassium (3.6-5.2) mmol/L Venous Blood Potassium (3.6-5.2) mmol/L Urine Opiates Screen (NEGATIVE) Urine Methadone Screen (NEGATIVE) Ur Barbiturates Screen (NEGATIVE) Ur Phencyclidine Scrn (NEGATIVE) Ur Amphetamines Screen (NEGATIVE) U Benzodiazepines Scrn (NEGATIVE) U Oth Cocaine Metabols (NEGATIVE) U Cannabinoids Screen (NEGATIVE) Influenza Typ A,B (EIA) (NEGATIVE) 11/08/17 11/08/17 11/08/17 Range/Units 22:29 21:53 19:29 WBC (4.8-10.8) K/uL RBC (4.40-5.90) Mil/uL Hgb (12.0-18.0) g/dL Hct (35.0-51.0) % MCV (80.0-94.0) fl MCH (27.0-31.0) pg MCHC (33.0-37.0) g/dL RDW (11.5-14.5) % Plt Count (130-400) K/uL MPV (7.2-11.7) fl Neut % (Auto) (50.0-75.0) % Lymph % (Auto) (20.0-40.0) % Burt % (Auto) (0.0-10.0) % Eos % (Auto) (0.0-4.0) % Baso % (Auto) (0.0-2.0) % Neut # (Auto) (1.8-7.0) K/uL Lymph # (Auto) (1.0-4.3) K/uL Burt # (Auto) (0.0-0.8) K/uL Eos # (Auto) (0.0-0.7) K/uL Baso # (Auto) (0.0-0.2) K/uL PT (9.8-13.1) Seconds INR (0.9-1.2) APTT (25.6-37.1) Seconds pCO2 53 H (35-45) mm/Hg pO2 584 H (30-55) mm/Hg HCO3 22.4 (21-28) mmol/L ABG pH 7.27 L (7.35-7.45) ABG Total CO2 25.9 (22-28) mmol/L ABG O2 Saturation 100.5 H (95-98) % ABG Base Excess -3.3 L (-2.0-3.0) mmol/L Garrick Test Yes ABG Potassium 4.8 (3.6-5.2) mmol/L VBG pH (7.32-7.43) VBG pCO2 (40-60) mmHg VBG HCO3 mmol/L VBG Total CO2 (22-28) mmol/L VBG O2 Sat (Calc) (40-65) % VBG Base Excess (0.0-2.0) mmol/L VBG Potassium (3.6-5.2) mmol/L A-a O2 Difference 63.0 mm/Hg Sodium 138.0 (132-148) mmol/L Chloride 110.0 H (98-107) mmol/L Glucose 185 H (75-110) mg/dL Lactate 2.2 H (0.7-2.1) mmol/L Vent Mode Prvc/ac Mechanical Rate 12 FiO2 100.0 % Tidal Volume 500 PEEP 5 Blood Gas Comments Lactate 2.2 Crit Value Called To sarthak Webber Crit Value Called By 22 Crit Value Read Back Y Blood Gas Notified Time 2216 Potassium (3.6-5.0) MMOL/L Carbon Dioxide (22-30) mmol/L Anion Gap (10-20) BUN (9-20) mg/dl Creatinine (0.8-1.5) mg/dl Est GFR ( Amer) Est GFR (Non-Af Amer) POC Glucose (mg/dL) (65-110) mg/dL Random Glucose (75-110) mg/dL Lactic Acid 3.5 H 3.3 H (0.7-2.1) MMOL/L Calcium (8.4-10.2) mg/dL Iron (49-181) ug/dL TIBC (250-450) ug/dL % Saturation (20-55) % Total Bilirubin (0.2-1.3) mg/dl AST (17-59) U/L ALT (21-72) U/L Alkaline Phosphatase (38-126) U/L Troponin I (0.00-0.120) ng/mL NT-Pro-B Natriuret Pep (0-900) pg/ml Total Protein (6.3-8.2) G/DL Albumin (3.5-5.0) g/dL Globulin (2.2-3.9) gm/dL Albumin/Globulin Ratio (1.0-2.1) Vitamin B12 (239-931) pg/mL Procalcitonin (0.19-0.49) NG/ML Arterial Blood Potassium 4.8 (3.6-5.2) mmol/L Venous Blood Potassium (3.6-5.2) mmol/L Urine Opiates Screen (NEGATIVE) Urine Methadone Screen (NEGATIVE) Ur Barbiturates Screen (NEGATIVE) Ur Phencyclidine Scrn (NEGATIVE) Ur Amphetamines Screen (NEGATIVE) U Benzodiazepines Scrn (NEGATIVE) U Oth Cocaine Metabols (NEGATIVE) U Cannabinoids Screen (NEGATIVE) Influenza Typ A,B (EIA) (NEGATIVE) 11/08/17 11/08/17 11/08/17 Range/Units 18:10 17:23 16:03 WBC (4.8-10.8) K/uL RBC (4.40-5.90) Mil/uL Hgb (12.0-18.0) g/dL Hct (35.0-51.0) % MCV (80.0-94.0) fl MCH (27.0-31.0) pg MCHC (33.0-37.0) g/dL RDW (11.5-14.5) % Plt Count (130-400) K/uL MPV (7.2-11.7) fl Neut % (Auto) (50.0-75.0) % Lymph % (Auto) (20.0-40.0) % Burt % (Auto) (0.0-10.0) % Eos % (Auto) (0.0-4.0) % Baso % (Auto) (0.0-2.0) % Neut # (Auto) (1.8-7.0) K/uL Lymph # (Auto) (1.0-4.3) K/uL Burt # (Auto) (0.0-0.8) K/uL Eos # (Auto) (0.0-0.7) K/uL Baso # (Auto) (0.0-0.2) K/uL PT (9.8-13.1) Seconds INR (0.9-1.2) APTT (25.6-37.1) Seconds pCO2 45 (35-45) mm/Hg pO2 198 H (30-55) mm/Hg HCO3 24.1 (21-28) mmol/L ABG pH 7.35 (7.35-7.45) ABG Total CO2 26.2 (22-28) mmol/L ABG O2 Saturation 99.5 H (95-98) % ABG Base Excess -1.1 (-2.0-3.0) mmol/L Garrick Test Yes ABG Potassium 4.7 (3.6-5.2) mmol/L VBG pH (7.32-7.43) VBG pCO2 (40-60) mmHg VBG HCO3 mmol/L VBG Total CO2 (22-28) mmol/L VBG O2 Sat (Calc) (40-65) % VBG Base Excess (0.0-2.0) mmol/L VBG Potassium (3.6-5.2) mmol/L A-a O2 Difference 316.0 mm/Hg Sodium 140.0 (132-148) mmol/L Chloride 110.0 H (98-107) mmol/L Glucose 186 H (75-110) mg/dL Lactate 1.7 (0.7-2.1) mmol/L Vent Mode High flow lpm Mechanical Rate FiO2 80.0 % Tidal Volume PEEP Blood Gas Comments Crit Value Called To Crit Value Called By Crit Value Read Back Blood Gas Notified Time Potassium (3.6-5.0) MMOL/L Carbon Dioxide (22-30) mmol/L Anion Gap (10-20) BUN (9-20) mg/dl Creatinine (0.8-1.5) mg/dl Est GFR ( Amer) Est GFR (Non-Af Amer) POC Glucose (mg/dL) (65-110) mg/dL Random Glucose (75-110) mg/dL Lactic Acid (0.7-2.1) MMOL/L Calcium (8.4-10.2) mg/dL Iron (49-181) ug/dL TIBC (250-450) ug/dL % Saturation (20-55) % Total Bilirubin (0.2-1.3) mg/dl AST (17-59) U/L ALT (21-72) U/L Alkaline Phosphatase (38-126) U/L Troponin I 0.0670 (0.00-0.120) ng/mL NT-Pro-B Natriuret Pep (0-900) pg/ml Total Protein (6.3-8.2) G/DL Albumin (3.5-5.0) g/dL Globulin (2.2-3.9) gm/dL Albumin/Globulin Ratio (1.0-2.1) Vitamin B12 (239-931) pg/mL Procalcitonin (0.19-0.49) NG/ML Arterial Blood Potassium 4.7 (3.6-5.2) mmol/L Venous Blood Potassium (3.6-5.2) mmol/L Urine Opiates Screen Negative (NEGATIVE) Urine Methadone Screen Negative (NEGATIVE) Ur Barbiturates Screen Negative (NEGATIVE) Ur Phencyclidine Scrn Negative (NEGATIVE) Ur Amphetamines Screen Negative (NEGATIVE) U Benzodiazepines Scrn Negative (NEGATIVE) U Oth Cocaine Metabols Negative (NEGATIVE) U Cannabinoids Screen Negative (NEGATIVE) Influenza Typ A,B (EIA) (NEGATIVE) 11/08/17 11/08/17 11/08/17 Range/Units 16:03 15:18 14:01 WBC (4.8-10.8) K/uL RBC (4.40-5.90) Mil/uL Hgb (12.0-18.0) g/dL Hct (35.0-51.0) % MCV (80.0-94.0) fl MCH (27.0-31.0) pg MCHC (33.0-37.0) g/dL RDW (11.5-14.5) % Plt Count (130-400) K/uL MPV (7.2-11.7) fl Neut % (Auto) (50.0-75.0) % Lymph % (Auto) (20.0-40.0) % Burt % (Auto) (0.0-10.0) % Eos % (Auto) (0.0-4.0) % Baso % (Auto) (0.0-2.0) % Neut # (Auto) (1.8-7.0) K/uL Lymph # (Auto) (1.0-4.3) K/uL Burt # (Auto) (0.0-0.8) K/uL Eos # (Auto) (0.0-0.7) K/uL Baso # (Auto) (0.0-0.2) K/uL PT (9.8-13.1) Seconds INR (0.9-1.2) APTT (25.6-37.1) Seconds pCO2 (35-45) mm/Hg pO2 27 L (30-55) mm/Hg HCO3 (21-28) mmol/L ABG pH (7.35-7.45) ABG Total CO2 (22-28) mmol/L ABG O2 Saturation (95-98) % ABG Base Excess (-2.0-3.0) mmol/L Garrick Test ABG Potassium (3.6-5.2) mmol/L VBG pH 7.31 L (7.32-7.43) VBG pCO2 56 (40-60) mmHg VBG HCO3 24.4 mmol/L VBG Total CO2 29.9 H (22-28) mmol/L VBG O2 Sat (Calc) 36.9 L (40-65) % VBG Base Excess 1.1 (0.0-2.0) mmol/L VBG Potassium 4.5 (3.6-5.2) mmol/L A-a O2 Difference mm/Hg Sodium 141.0 (132-148) mmol/L Chloride 108.0 H (98-107) mmol/L Glucose 140 H (75-110) mg/dL Lactate 2.4 H (0.7-2.1) mmol/L Vent Mode Mechanical Rate FiO2 21.0 % Tidal Volume PEEP Blood Gas Comments Crit Value Called To Crit Value Called By Crit Value Read Back Blood Gas Notified Time Potassium (3.6-5.0) MMOL/L Carbon Dioxide (22-30) mmol/L Anion Gap (10-20) BUN (9-20) mg/dl Creatinine (0.8-1.5) mg/dl Est GFR ( Amer) Est GFR (Non-Af Amer) POC Glucose (mg/dL) (65-110) mg/dL Random Glucose (75-110) mg/dL Lactic Acid 1.7 (0.7-2.1) MMOL/L Calcium (8.4-10.2) mg/dL Iron (49-181) ug/dL TIBC (250-450) ug/dL % Saturation (20-55) % Total Bilirubin (0.2-1.3) mg/dl AST (17-59) U/L ALT (21-72) U/L Alkaline Phosphatase (38-126) U/L Troponin I (0.00-0.120) ng/mL NT-Pro-B Natriuret Pep (0-900) pg/ml Total Protein (6.3-8.2) G/DL Albumin (3.5-5.0) g/dL Globulin (2.2-3.9) gm/dL Albumin/Globulin Ratio (1.0-2.1) Vitamin B12 (239-931) pg/mL Procalcitonin 0.29 (0.19-0.49) NG/ML Arterial Blood Potassium (3.6-5.2) mmol/L Venous Blood Potassium 4.5 (3.6-5.2) mmol/L Urine Opiates Screen (NEGATIVE) Urine Methadone Screen (NEGATIVE) Ur Barbiturates Screen (NEGATIVE) Ur Phencyclidine Scrn (NEGATIVE) Ur Amphetamines Screen (NEGATIVE) U Benzodiazepines Scrn (NEGATIVE) U Oth Cocaine Metabols (NEGATIVE) U Cannabinoids Screen (NEGATIVE) Influenza Typ A,B (EIA) (NEGATIVE) 11/08/17 11/08/17 11/08/17 Range/Units 11:05 11:05 11:05 WBC 9.8 (4.8-10.8) K/uL RBC 3.61 L (4.40-5.90) Mil/uL Hgb 10.7 L (12.0-18.0) g/dL Hct 32.7 L (35.0-51.0) % MCV 90.4 (80.0-94.0) fl MCH 29.6 (27.0-31.0) pg MCHC 32.7 L (33.0-37.0) g/dL RDW 15.0 H (11.5-14.5) % Plt Count 463 H (130-400) K/uL MPV 7.0 L (7.2-11.7) fl Neut % (Auto) 79.6 H (50.0-75.0) % Lymph % (Auto) 14.6 L (20.0-40.0) % Burt % (Auto) 5.4 (0.0-10.0) % Eos % (Auto) 0.2 (0.0-4.0) % Baso % (Auto) 0.2 (0.0-2.0) % Neut # (Auto) 7.8 H (1.8-7.0) K/uL Lymph # (Auto) 1.4 (1.0-4.3) K/uL Burt # (Auto) 0.5 (0.0-0.8) K/uL Eos # (Auto) 0.0 (0.0-0.7) K/uL Baso # (Auto) 0.0 (0.0-0.2) K/uL PT 16.3 H (9.8-13.1) Seconds INR 1.5 H (0.9-1.2) APTT 24.9 L (25.6-37.1) Seconds pCO2 (35-45) mm/Hg pO2 (30-55) mm/Hg HCO3 (21-28) mmol/L ABG pH (7.35-7.45) ABG Total CO2 (22-28) mmol/L ABG O2 Saturation (95-98) % ABG Base Excess (-2.0-3.0) mmol/L Garrick Test ABG Potassium (3.6-5.2) mmol/L VBG pH (7.32-7.43) VBG pCO2 (40-60) mmHg VBG HCO3 mmol/L VBG Total CO2 (22-28) mmol/L VBG O2 Sat (Calc) (40-65) % VBG Base Excess (0.0-2.0) mmol/L VBG Potassium (3.6-5.2) mmol/L A-a O2 Difference mm/Hg Sodium (132-148) mmol/L Chloride (98-107) mmol/L Glucose (75-110) mg/dL Lactate (0.7-2.1) mmol/L Vent Mode Mechanical Rate FiO2 % Tidal Volume PEEP Blood Gas Comments Crit Value Called To Crit Value Called By Crit Value Read Back Blood Gas Notified Time Potassium (3.6-5.0) MMOL/L Carbon Dioxide (22-30) mmol/L Anion Gap (10-20) BUN (9-20) mg/dl Creatinine (0.8-1.5) mg/dl Est GFR ( Amer) Est GFR (Non-Af Amer) POC Glucose (mg/dL) (65-110) mg/dL Random Glucose (75-110) mg/dL Lactic Acid (0.7-2.1) MMOL/L Calcium (8.4-10.2) mg/dL Iron (49-181) ug/dL TIBC (250-450) ug/dL % Saturation (20-55) % Total Bilirubin (0.2-1.3) mg/dl AST (17-59) U/L ALT (21-72) U/L Alkaline Phosphatase (38-126) U/L Troponin I (0.00-0.120) ng/mL NT-Pro-B Natriuret Pep (0-900) pg/ml Total Protein (6.3-8.2) G/DL Albumin (3.5-5.0) g/dL Globulin (2.2-3.9) gm/dL Albumin/Globulin Ratio (1.0-2.1) Vitamin B12 (239-931) pg/mL Procalcitonin (0.19-0.49) NG/ML Arterial Blood Potassium (3.6-5.2) mmol/L Venous Blood Potassium (3.6-5.2) mmol/L Urine Opiates Screen (NEGATIVE) Urine Methadone Screen (NEGATIVE) Ur Barbiturates Screen (NEGATIVE) Ur Phencyclidine Scrn (NEGATIVE) Ur Amphetamines Screen (NEGATIVE) U Benzodiazepines Scrn (NEGATIVE) U Oth Cocaine Metabols (NEGATIVE) U Cannabinoids Screen (NEGATIVE) Influenza Typ A,B (EIA) Negative for flu a/b (NEGATIVE) 11/08/17 11/08/17 Range/Units 11:05 11:00 WBC (4.8-10.8) K/uL RBC (4.40-5.90) Mil/uL Hgb (12.0-18.0) g/dL Hct (35.0-51.0) % MCV (80.0-94.0) fl MCH (27.0-31.0) pg MCHC (33.0-37.0) g/dL RDW (11.5-14.5) % Plt Count (130-400) K/uL MPV (7.2-11.7) fl Neut % (Auto) (50.0-75.0) % Lymph % (Auto) (20.0-40.0) % Burt % (Auto) (0.0-10.0) % Eos % (Auto) (0.0-4.0) % Baso % (Auto) (0.0-2.0) % Neut # (Auto) (1.8-7.0) K/uL Lymph # (Auto) (1.0-4.3) K/uL Burt # (Auto) (0.0-0.8) K/uL Eos # (Auto) (0.0-0.7) K/uL Baso # (Auto) (0.0-0.2) K/uL PT (9.8-13.1) Seconds INR (0.9-1.2) APTT (25.6-37.1) Seconds pCO2 (35-45) mm/Hg pO2 26 L (30-55) mm/Hg HCO3 (21-28) mmol/L ABG pH (7.35-7.45) ABG Total CO2 (22-28) mmol/L ABG O2 Saturation (95-98) % ABG Base Excess (-2.0-3.0) mmol/L Garrick Test ABG Potassium (3.6-5.2) mmol/L VBG pH 7.30 L (7.32-7.43) VBG pCO2 53 (40-60) mmHg VBG HCO3 22.7 mmol/L VBG Total CO2 27.7 (22-28) mmol/L VBG O2 Sat (Calc) 31.0 L (40-65) % VBG Base Excess -0.9 L (0.0-2.0) mmol/L VBG Potassium 4.3 (3.6-5.2) mmol/L A-a O2 Difference mm/Hg Sodium 144 140.0 (132-148) mmol/L Chloride 102 109.0 H (98-107) mmol/L Glucose 176 H (75-110) mg/dL Lactate 3.5 H (0.7-2.1) mmol/L Vent Mode Mechanical Rate FiO2 21.0 % Tidal Volume PEEP Blood Gas Comments Crit Value Called To Crit Value Called By Crit Value Read Back Blood Gas Notified Time Potassium 4.7 (3.6-5.0) MMOL/L Carbon Dioxide 26 (22-30) mmol/L Anion Gap 21 H (10-20) BUN 36 H (9-20) mg/dl Creatinine 1.1 (0.8-1.5) mg/dl Est GFR ( Amer) > 60 Est GFR (Non-Af Amer) > 60 POC Glucose (mg/dL) (65-110) mg/dL Random Glucose 189 H (75-110) mg/dL Lactic Acid (0.7-2.1) MMOL/L Calcium 9.1 (8.4-10.2) mg/dL Iron (49-181) ug/dL TIBC (250-450) ug/dL % Saturation (20-55) % Total Bilirubin 0.7 (0.2-1.3) mg/dl AST 187 H (17-59) U/L ALT 101 H (21-72) U/L Alkaline Phosphatase 122 (38-126) U/L Troponin I 0.0400 (0.00-0.120) ng/mL NT-Pro-B Natriuret Pep 03834 H (0-900) pg/ml Total Protein 8.4 H (6.3-8.2) G/DL Albumin 3.5 (3.5-5.0) g/dL Globulin 5.0 H (2.2-3.9) gm/dL Albumin/Globulin Ratio 0.7 L (1.0-2.1) Vitamin B12 (239-931) pg/mL Procalcitonin (0.19-0.49) NG/ML Arterial Blood Potassium (3.6-5.2) mmol/L Venous Blood Potassium 4.3 (3.6-5.2) mmol/L Urine Opiates Screen (NEGATIVE) Urine Methadone Screen (NEGATIVE) Ur Barbiturates Screen (NEGATIVE) Ur Phencyclidine Scrn (NEGATIVE) Ur Amphetamines Screen (NEGATIVE) U Benzodiazepines Scrn (NEGATIVE) U Oth Cocaine Metabols (NEGATIVE) U Cannabinoids Screen (NEGATIVE) Influenza Typ A,B (EIA) (NEGATIVE) Laboratory Results - last 24 hr 11/08/17 11/08/17 11/08/17 11:00 11:05 11:05 WBC 9.8 RBC 3.61 L Hgb 10.7 L Hct 32.7 L MCV 90.4 MCH 29.6 MCHC 32.7 L RDW 15.0 H Plt Count 463 H MPV 7.0 L Neut % (Auto) 79.6 H Lymph % (Auto) 14.6 L Burt % (Auto) 5.4 Eos % (Auto) 0.2 Baso % (Auto) 0.2 Neut # (Auto) 7.8 H Lymph # (Auto) 1.4 Burt # (Auto) 0.5 Eos # (Auto) 0.0 Baso # (Auto) 0.0 PT INR APTT pCO2 pO2 26 L HCO3 ABG pH ABG Total CO2 ABG O2 Saturation ABG Base Excess Garrick Test ABG Potassium VBG pH 7.30 L VBG pCO2 53 VBG HCO3 22.7 VBG Total CO2 27.7 VBG O2 Sat (Calc) 31.0 L VBG Base Excess -0.9 L VBG Potassium 4.3 A-a O2 Difference Sodium 140.0 144 Chloride 109.0 H 102 Glucose 176 H Lactate 3.5 H Vent Mode Mechanical Rate FiO2 21.0 Tidal Volume PEEP Blood Gas Comments Crit Value Called To Crit Value Called By Crit Value Read Back Blood Gas Notified Time Potassium 4.7 Carbon Dioxide 26 Anion Gap 21 H BUN 36 H Creatinine 1.1 Est GFR ( Amer) > 60 Est GFR (Non-Af Amer) > 60 POC Glucose (mg/dL) Random Glucose 189 H Lactic Acid Calcium 9.1 Iron TIBC % Saturation Total Bilirubin 0.7 AST 187 H ALT 101 H Alkaline Phosphatase 122 Troponin I 0.0400 NT-Pro-B Natriuret Pep 78070 H Total Protein 8.4 H Albumin 3.5 Globulin 5.0 H Albumin/Globulin Ratio 0.7 L Vitamin B12 Procalcitonin Arterial Blood Potassium Venous Blood Potassium 4.3 Urine Opiates Screen Urine Methadone Screen Ur Barbiturates Screen Ur Phencyclidine Scrn Ur Amphetamines Screen U Benzodiazepines Scrn U Oth Cocaine Metabols U Cannabinoids Screen Influenza Typ A,B (EIA) 11/08/17 11/08/17 11/08/17 11:05 11:05 14:01 WBC RBC Hgb Hct MCV MCH MCHC RDW Plt Count MPV Neut % (Auto) Lymph % (Auto) Burt % (Auto) Eos % (Auto) Baso % (Auto) Neut # (Auto) Lymph # (Auto) Burt # (Auto) Eos # (Auto) Baso # (Auto) PT 16.3 H INR 1.5 H APTT 24.9 L pCO2 pO2 27 L HCO3 ABG pH ABG Total CO2 ABG O2 Saturation ABG Base Excess Garrick Test ABG Potassium VBG pH 7.31 L VBG pCO2 56 VBG HCO3 24.4 VBG Total CO2 29.9 H VBG O2 Sat (Calc) 36.9 L VBG Base Excess 1.1 VBG Potassium 4.5 A-a O2 Difference Sodium 141.0 Chloride 108.0 H Glucose 140 H Lactate 2.4 H Vent Mode Mechanical Rate FiO2 21.0 Tidal Volume PEEP Blood Gas Comments Crit Value Called To Crit Value Called By Crit Value Read Back Blood Gas Notified Time Potassium Carbon Dioxide Anion Gap BUN Creatinine Est GFR ( Amer) Est GFR (Non-Af Amer) POC Glucose (mg/dL) Random Glucose Lactic Acid Calcium Iron TIBC % Saturation Total Bilirubin AST ALT Alkaline Phosphatase Troponin I NT-Pro-B Natriuret Pep Total Protein Albumin Globulin Albumin/Globulin Ratio Vitamin B12 Procalcitonin Arterial Blood Potassium Venous Blood Potassium 4.5 Urine Opiates Screen Urine Methadone Screen Ur Barbiturates Screen Ur Phencyclidine Scrn Ur Amphetamines Screen U Benzodiazepines Scrn U Oth Cocaine Metabols U Cannabinoids Screen Influenza Typ A,B (EIA) Negative for flu a/b 11/08/17 11/08/17 11/08/17 15:18 16:03 16:03 WBC RBC Hgb Hct MCV MCH MCHC RDW Plt Count MPV Neut % (Auto) Lymph % (Auto) Burt % (Auto) Eos % (Auto) Baso % (Auto) Neut # (Auto) Lymph # (Auto) Burt # (Auto) Eos # (Auto) Baso # (Auto) PT INR APTT pCO2 pO2 HCO3 ABG pH ABG Total CO2 ABG O2 Saturation ABG Base Excess Garrick Test ABG Potassium VBG pH VBG pCO2 VBG HCO3 VBG Total CO2 VBG O2 Sat (Calc) VBG Base Excess VBG Potassium A-a O2 Difference Sodium Chloride Glucose Lactate Vent Mode Mechanical Rate FiO2 Tidal Volume PEEP Blood Gas Comments Crit Value Called To Crit Value Called By Crit Value Read Back Blood Gas Notified Time Potassium Carbon Dioxide Anion Gap BUN Creatinine Est GFR ( Amer) Est GFR (Non-Af Amer) POC Glucose (mg/dL) Random Glucose Lactic Acid 1.7 Calcium Iron TIBC % Saturation Total Bilirubin AST ALT Alkaline Phosphatase Troponin I 0.0670 NT-Pro-B Natriuret Pep Total Protein Albumin Globulin Albumin/Globulin Ratio Vitamin B12 Procalcitonin 0.29 Arterial Blood Potassium Venous Blood Potassium Urine Opiates Screen Urine Methadone Screen Ur Barbiturates Screen Ur Phencyclidine Scrn Ur Amphetamines Screen U Benzodiazepines Scrn U Oth Cocaine Metabols U Cannabinoids Screen Influenza Typ A,B (EIA) 03/09/18 03/09/18 03/09/18 17:23 18:10 19:29 WBC RBC Hgb Hct MCV MCH MCHC RDW Plt Count MPV Neut % (Auto) Lymph % (Auto) Burt % (Auto) Eos % (Auto) Baso % (Auto) Neut # (Auto) Lymph # (Auto) Burt # (Auto) Eos # (Auto) Baso # (Auto) PT INR APTT pCO2 45 pO2 198 H HCO3 24.1 ABG pH 7.35 ABG Total CO2 26.2 ABG O2 Saturation 99.5 H ABG Base Excess -1.1 Garrick Test Yes ABG Potassium 4.7 VBG pH VBG pCO2 VBG HCO3 VBG Total CO2 VBG O2 Sat (Calc) VBG Base Excess VBG Potassium A-a O2 Difference 316.0 Sodium 140.0 Chloride 110.0 H Glucose 186 H Lactate 1.7 Vent Mode High flow lpm Mechanical Rate FiO2 80.0 Tidal Volume PEEP Blood Gas Comments Crit Value Called To Crit Value Called By Crit Value Read Back Blood Gas Notified Time Potassium Carbon Dioxide Anion Gap BUN Creatinine Est GFR ( Amer) Est GFR (Non-Af Amer) POC Glucose (mg/dL) Random Glucose Lactic Acid 3.3 H Calcium Iron TIBC % Saturation Total Bilirubin AST ALT Alkaline Phosphatase Troponin I NT-Pro-B Natriuret Pep Total Protein Albumin Globulin Albumin/Globulin Ratio Vitamin B12 Procalcitonin Arterial Blood Potassium 4.7 Venous Blood Potassium Urine Opiates Screen Negative Urine Methadone Screen Negative Ur Barbiturates Screen Negative Ur Phencyclidine Scrn Negative Ur Amphetamines Screen Negative U Benzodiazepines Scrn Negative U Oth Cocaine Metabols Negative U Cannabinoids Screen Negative Influenza Typ A,B (EIA) 11/08/17 11/08/17 11/08/17 21:53 22:29 22:29 WBC RBC Hgb Hct MCV MCH MCHC RDW Plt Count MPV Neut % (Auto) Lymph % (Auto) Burt % (Auto) Eos % (Auto) Baso % (Auto) Neut # (Auto) Lymph # (Auto) Burt # (Auto) Eos # (Auto) Baso # (Auto) PT INR APTT pCO2 53 H pO2 584 H HCO3 22.4 ABG pH 7.27 L ABG Total CO2 25.9 ABG O2 Saturation 100.5 H ABG Base Excess -3.3 L Garrick Test Yes ABG Potassium 4.8 VBG pH VBG pCO2 VBG HCO3 VBG Total CO2 VBG O2 Sat (Calc) VBG Base Excess VBG Potassium A-a O2 Difference 63.0 Sodium 138.0 Chloride 110.0 H Glucose 185 H Lactate 2.2 H Vent Mode Prvc/ac Mechanical Rate 12 FiO2 100.0 Tidal Volume 500 PEEP 5 Blood Gas Comments Lactate 2.2 Crit Value Called To sarthak Webber Crit Value Called By 22 Crit Value Read Back Y Blood Gas Notified Time 2217 Potassium Carbon Dioxide Anion Gap BUN Creatinine Est GFR ( Amer) Est GFR (Non-Af Amer) POC Glucose (mg/dL) Random Glucose Lactic Acid 3.5 H Calcium Iron TIBC % Saturation Total Bilirubin AST ALT Alkaline Phosphatase Troponin I 0.0840 NT-Pro-B Natriuret Pep 31359 H Total Protein Albumin Globulin Albumin/Globulin Ratio Vitamin B12 Procalcitonin Arterial Blood Potassium 4.8 Venous Blood Potassium Urine Opiates Screen Urine Methadone Screen Ur Barbiturates Screen Ur Phencyclidine Scrn Ur Amphetamines Screen U Benzodiazepines Scrn U Oth Cocaine Metabols U Cannabinoids Screen Influenza Typ A,B (EIA) 11/09/17 11/09/17 11/09/17 04:19 04:19 05:35 WBC RBC Hgb Hct MCV MCH MCHC RDW Plt Count MPV Neut % (Auto) Lymph % (Auto) Burt % (Auto) Eos % (Auto) Baso % (Auto) Neut # (Auto) Lymph # (Auto) Burt # (Auto) Eos # (Auto) Baso # (Auto) PT INR APTT pCO2 47 H pO2 156 H HCO3 25.4 ABG pH 7.36 ABG Total CO2 28.0 ABG O2 Saturation 99.7 H ABG Base Excess 0.6 Garrick Test Yes ABG Potassium 4.1 VBG pH VBG pCO2 VBG HCO3 VBG Total CO2 VBG O2 Sat (Calc) VBG Base Excess VBG Potassium A-a O2 Difference 70.0 Sodium 139.0 Chloride 109.0 H Glucose 154 H Lactate 1.2 Vent Mode A/c Mechanical Rate 16 FiO2 40.0 Tidal Volume 400 PEEP 5 Blood Gas Comments Crit Value Called To Crit Value Called By Crit Value Read Back Blood Gas Notified Time Potassium Carbon Dioxide Anion Gap BUN Creatinine Est GFR ( Amer) Est GFR (Non-Af Amer) POC Glucose (mg/dL) Random Glucose Lactic Acid Calcium Iron 63 TIBC 240 L % Saturation 26 Total Bilirubin AST ALT Alkaline Phosphatase Troponin I NT-Pro-B Natriuret Pep Total Protein Albumin Globulin Albumin/Globulin Ratio Vitamin B12 > 1000 H Procalcitonin Arterial Blood Potassium 4.1 Venous Blood Potassium Urine Opiates Screen Urine Methadone Screen Ur Barbiturates Screen Ur Phencyclidine Scrn Ur Amphetamines Screen U Benzodiazepines Scrn U Oth Cocaine Metabols U Cannabinoids Screen Influenza Typ A,B (EIA) 11/09/17 11/09/17 05:45 07:30 WBC RBC Hgb Hct MCV MCH MCHC RDW Plt Count MPV Neut % (Auto) Lymph % (Auto) Burt % (Auto) Eos % (Auto) Baso % (Auto) Neut # (Auto) Lymph # (Auto) Burt # (Auto) Eos # (Auto) Baso # (Auto) PT INR APTT pCO2 pO2 HCO3 ABG pH ABG Total CO2 ABG O2 Saturation ABG Base Excess Garrick Test ABG Potassium VBG pH VBG pCO2 VBG HCO3 VBG Total CO2 VBG O2 Sat (Calc) VBG Base Excess VBG Potassium A-a O2 Difference Sodium 143 Chloride 107 Glucose Lactate Vent Mode Mechanical Rate FiO2 Tidal Volume PEEP Blood Gas Comments Crit Value Called To Crit Value Called By Crit Value Read Back Blood Gas Notified Time Potassium 4.5 Carbon Dioxide 22 Anion Gap 19 BUN 40 H Creatinine 1.2 Est GFR ( Amer) > 60 Est GFR (Non-Af Amer) 58 POC Glucose (mg/dL) 142 H Random Glucose 141 H Lactic Acid Calcium 8.5 Iron TIBC % Saturation Total Bilirubin AST ALT Alkaline Phosphatase Troponin I NT-Pro-B Natriuret Pep Total Protein Albumin Globulin Albumin/Globulin Ratio Vitamin B12 Procalcitonin Arterial Blood Potassium Venous Blood Potassium Urine Opiates Screen Urine Methadone Screen Ur Barbiturates Screen Ur Phencyclidine Scrn Ur Amphetamines Screen U Benzodiazepines Scrn U Oth Cocaine Metabols U Cannabinoids Screen Influenza Typ A,B (EIA) EKG/Cardiology Studies: Cardiology / EKG Studies 11/08/17 10:49 ELECTROCARDIOGRAM Stat Comment: Mode Of Transportation: Reason For Exam: tachycardia Review of Systems - Constitutional Additional comments: limited ROS as patient is intubated Critical Care Progress Note - Ventilator Checklist Head of Bed 30 Degrees: Yes Daily Sedation Vacation: Yes Daily Assessment of Readiness to Wean: Yes Daily Spontaneous Breathing Trial: Yes PUD Prophalyxis: Yes DVT Prophylaxis: Yes Oral Care with Chlorhexidine Gluconate {CHG}: Yes - Nutrition Nutrition: Nutrition Category Date Time Status NPO Diet [DIET] Diets 11/08/17 Dinner Active Assessment/Plan - Assessment and Plan (Free Text) Plan: Hypoxic and hypercapneic respiratory failure: continue ventilation to keep spo2 > 92 and Ph b/w 7.35-7.45, contineu bronchodialtors + solumedrol -Multilobar PNA/sepsis: suspect post influenza, check procalcitonin, start tamiflu, vanco + zosyn send for cultures, legionella, fungal, and continue pulmonary toielt, serial lactic -Systolic and diastolic heart failure/A-fib: obtain echo, ?MR, ?pulmonary HTN, rate control with verapamil(wheezing), AC with lovenox, cardiology input, TAYLOR VASC score >2 -OG tube : start tube feeds -monitor urine output -BGm q6hrs, ISS lispro -DVT ppx lovenox -PUD ppx protonix -Prognosis guarded as patient came to seek medical services after about 2 weeks of URTI/lobar PNA with previous attempts using complementary medical treatment. Patient has a long history of smoking decreasing pulmonary reserve and has congestive heart failure. cc time 35 minutes FIo2 40%, CPAP trials daily. -continue ICU monitoring and resusitation. - Date & Time Date: 11/09/17 Time: 08:46
[2017-11-09] MEDS ORDERED: Insulin Lispro (humaLOG) 100 Units/ml Inj SC SCH ×2 (08:45→11:30)
[2017-11-09] MEDS ORDERED: Ascorbic Acid 500 mg/5 ml Liq(50 ml) PO SCH (09:00)
[2017-11-09 09:28] LABS: HEMOGLOBIN 9.1 g/dL (12.0-18.0); MEAN CELL VOLUME 90.9 fl (80.0-94.0); MEAN CORPUSCULAR HEMOGLOBIN 28.5 pg (27.0-31.0); MEAN CORPUSCULAR HGB CONC 31.3 g/dL (33.0-37.0); RBC 3.21 Mil/uL (4.40-5.90); RED CELL DISTRIBUTION WIDTH 15.3 % (11.5-14.5); WHITE BLOOD COUNT 15.5 K/uL (4.8-10.8)
[2017-11-09] MEDS: Multi Vitamins 15 mL UD Oral Solution PO SCH (10:04)
[2017-11-09] MEDS ORDERED: Lactated Ringer's 1,000 ML IV SCH (11:30)
[2017-11-09] MEDS: Insulin Lispro (humaLOG) 100 Units/ml Inj SC SCH ×2 (12:14→17:02)
--- NOTE | 2017-11-09 12:32 | CARD ---
APPROVED REPORT EXAM: Two-dimensional and M-mode echocardiogram with Doppler and color Doppler. Other Information Quality : GoodRhythm : NSR INDICATION Dyspnea Elevated BNP 2D DIMENSIONS IVSd0.87 (0.7-1.1cm)LVDd5.52 (3.9-5.9cm) LVOT Diameter3.14 (1.8-2.4cm)PWd0.77 (0.7-1.1cm) IVSs1.32 (0.8-1.2cm)LVDs4.52 (2.5-4.0cm) FS (%) 18.1 %PWs1.23 (0.8-1.2cm) M-Mode DIMENSIONS Left Atrium (MM)4.62 (2.5-4.0cm)IVSd0.82 (0.7-1.1cm) Aortic Root3.38 (2.2-3.7cm)LVDd6.50 (4.0-5.6cm) Aortic Cusp Exc.1.79 (1.5-2.0cm)PWd0.68 (0.7-1.1cm) IVSs1.06 cmFS (%) 10 % LVDs5.88 (2.0-3.8cm)PWs0.76 cm Mitral Valve E/A ratio0.0 TDI E/Lateral E'0.0E/Medial E'0.0 Tricuspid Valve TR Peak [id number]/sRAP [id number] Peak Gr.28mmHg [id number] LEFT VENTRICLE The left ventricle is normal size. There is normal left ventricular wall thickness. The systolic function is severely impaired. The Ejection Fraction is 20-25%. There is global hypokinesis of the left ventricle. The left ventricular diastolic function is normal. No left ventricle thrombus noted on this study. RIGHT VENTRICLE The right ventricle is normal size. There is normal right ventricular wall thickness. The right ventricular systolic function is normal. ATRIA The left atrium size is normal. The right atrium size is normal. AORTIC VALVE The aortic valve is normal in structure. No aortic regurgitation is present. There is no aortic valvular stenosis. MITRAL VALVE The mitral valve is normal in structure. There is no mitral valve stenosis. Mitral regurgitation is severe. TRICUSPID VALVE The tricuspid valve is normal in structure. There is moderate to severe tricuspid regurgitation. There is no tricuspid valve stenosis. PULMONIC VALVE The pulmonary valve is normal in structure. There is no pulmonic valvular regurgitation. There is no pulmonic valvular stenosis. GREAT VESSELS The aortic root is normal in size. The IVC is normal in size and collapses >50% with inspiration. PERICARDIAL EFFUSION The pericardium appears normal. <Conclusion> The systolic function is severely impaired. The Ejection Fraction is 20-25%. There is global hypokinesis of the left ventricle. The left ventricle is normal size. Mitral regurgitation is severe. There is moderate to severe tricuspid regurgitation.
--- NOTE | 2017-11-09 12:51 | PCM.PROC ---
Procedures Attestation:: I certify that I have explained the specified Operation(s) or Procedure(s), risks, benefits and reasonable alternatives to the Patient and/or other person responsible. The opportunity was given to ask questions and all questions answered - Central Line Placement Right Internal Jugular Triple Lumen Catheter Aseptic technique was employed throughout the procedure: Hand Hygiene done prior to procedure, Full sterile barriers (mask, hair cover, sterile gown, sterile gloves), Full body sterile drape, Chloraprep Antiseptic: 30 second prep for IJ or SC sites CVP Time Out Performed: Yes Pt. Placed on Pulse Ox Monitor: Yes Central Line Prep: Chlorhexidine-Alcohol Combination Local Anesthesia Used: Lidocaine 1% Amount of Anesthesia Used (mls): 5 Ultrasound Used for Placement: Yes Central Line Lumen Inserted: triple Central Line Length: 16 cm Post Procedure: Sutured in Place, Good Blood Return, All Ports Aspirated, Flushed, Capped, Sterile Dressing Applied Secured by: Suture Post procedure dressing: Gauze, Clear vapor permeable, Chlorhexidine disc ( Biopatch) Post Procedure X-Ray: Yes Patient Tolerated Procedure: Well Immediate Complications: None
--- NOTE | 2017-11-09 15:28 | RAD ---
PROCEDURE: CHEST RADIOGRAPH, 1 VIEW HISTORY: s/p central line insertion COMPARISON: 11/09/2017 FINDINGS: LUNGS: Diffuse bilateral interstitial infiltrates with right pleural effusion. Right CVP line in place. Tubes and catheters unchanged. PLEURA: No pneumothorax or pleural fluid seen. CARDIOVASCULAR: Normal. OSSEOUS STRUCTURES: No significant abnormalities. VISUALIZED UPPER ABDOMEN: Normal. OTHER FINDINGS: None. IMPRESSION: Diffuse bilateral interstitial infiltrates with right pleural effusion. Right CVP line in place. Tubes and catheters unchanged.
--- NOTE | 2017-11-09 16:27 | CP.PCM.PN ---
Subjective - Date & Time of Evaluation Date of Evaluation: 11/09/17 Time of Evaluation: 15:00 - Subjective Subjective: F/U respiratory Failure. Intubated , awake , follows commands Objective - Vital Signs/Intake and Output Vital Signs (last 24 hours): Temp Pulse Resp BP Pulse Ox 98.4 F 95 H 27 H 97/68 L 100 11/09/17 16:00 11/09/17 16:00 11/09/17 16:00 11/09/17 16:00 11/09/17 16:00 Intake and Output: 11/09/17 11/09/17 06:59 18:59 Intake Total 470 1020 Output Total 2200 700 Balance -1730 320 - Medications Medications: Current Medications Albuterol/Ipratropium (Duoneb 3 Mg/0.5 Mg (3 Ml) Ud) 3 ml INH RQ4 YESENIA Last Admin: 11/09/17 15:18 Dose: 3 ml Ascorbic Acid (Vitamin C 500 Mg Tab) 1,000 mg PO DAILY YESENIA Last Admin: 11/09/17 10:05 Dose: 1,000 mg Enoxaparin Sodium (Lovenox) 60 mg SC Q12 YESENIA PRN Reason: Protocol Last Admin: 11/09/17 08:27 Dose: 60 mg Furosemide (Lasix) 20 mg IVP DAILY YESENIA Last Admin: 11/09/17 08:26 Dose: Not Given Piperacillin Sod/Tazobactam (Sod 3.375 gm/ Sodium Chloride) 100 mls @ 100 mls/ hr IVPB Q6 YESENIA PRN Reason: Protocol Last Admin: 11/09/17 16:04 Dose: 100 mls/hr Vancomycin HCl 1 gm/ Sodium (Chloride) 250 mls @ 166.667 mls/hr IVPB Q12 YESENIA PRN Reason: Protocol Last Admin: 11/09/17 08:31 Dose: 166.667 mls/hr Propofol (Diprivan) 1,000 mg in 100 mls @ 1.905 mls/hr IV .Q24H YESENIA; 5 MCG/KG/ MIN PRN Reason: Protocol Stop: 11/10/17 01:35 Last Titration: 11/09/17 07:07 Dose: 10 mcg/kg/min, 3.81 mls/hr Doxycycline Hyclate 100 mg/ (Sodium Chloride) 100 mls @ 100 mls/hr IVPB Q12 YESENIA PRN Reason: Protocol Stop: 11/15/17 09:00 Last Admin: 11/09/17 10:04 Dose: 100 mls/hr Lactated Ringer's (Lactated Ringer's) 1,000 mls @ 42 mls/hr IV .[id number] YESENIA Last Admin: 11/09/17 11:44 Dose: 42 mls/hr Norepinephrine Bitartrate 4 mg (/ Dextrose) 254 mls @ 9.52 mls/hr IV .Q24H YESENIA ; 2.5 MCG/MIN PRN Reason: Protocol Last Admin: 11/09/17 13:44 Dose: 2.5 mcg/min, 9.52 mls/hr Influenza Virus Vaccine (Afluria (Pf)(18yr & Older)) 0.5 ml IM .ONCE ONE Stop: 11/10/17 09:01 Insulin Human Lispro (Humalog) 0 units SC Q6H YESENIA PRN Reason: Protocol Last Admin: 11/09/17 12:14 Dose: Not Given Methylprednisolone (Solu-Medrol) 40 mg IVP Q6 [facility] Last Admin: 11/09/17 16:04 Dose: 40 mg Midodrine (Proamatine) 2.5 mg PO TID [facility] Last Admin: 11/09/17 16:03 Dose: 2.5 mg Multivitamins/Vitamin C (Multi-Delyn Liquid) 15 ml PO DAILY [facility] Last Admin: 11/09/17 10:04 Dose: 15 ml Oseltamivir Phosphate (Tamiflu) 30 mg PO BID YESENIA PRN Reason: Protocol Last Admin: 11/09/17 16:04 Dose: 30 mg Pantoprazole Sodium (Protonix Inj) 40 mg IVP DAILY [facility] Last Admin: 11/09/17 08:27 Dose: 40 mg Thiamine HCl (Vitamin B1 Tab) 100 mg PO DAILY [facility] Last Admin: 11/09/17 10:04 Dose: 100 mg Verapamil HCl (Verapamil Inj) 2.5 mg IVP Q4H PRN PRN Reason: Until an adequate response is - Labs Labs: 11/09/17 07:54 11/09/17 07:30 PT 16.3 Seconds (9.8-13.1) H 11/08/17 11:05 INR 1.5 (0.9-1.2) H 11/08/17 11:05 APTT 24.9 Seconds (25.6-37.1) L 11/08/17 11:05 - Constitutional Appears: Chronically Ill - Head Exam Head Exam: NORMAL INSPECTION - Eye Exam Eye Exam: PERRL - ENT Exam Additional comments: intubated , G tube - Neck Exam Neck Exam: Normal Inspection - Respiratory Exam Respiratory Exam: Decreased Breath Sounds, Rhonchi - Cardiovascular Exam Cardiovascular Exam: REGULAR RHYTHM - GI/Abdominal Exam GI & Abdominal Exam: Soft, Normal Bowel Sounds - Extremities Exam Extremities Exam: Normal Inspection - Back Exam Back Exam: NORMAL INSPECTION - Neurological Exam Additional comments: intubated , follows commands , moves all extremities - Psychiatric Exam Psychiatric exam: Anxious - Skin Skin Exam: Warm Assessment and Plan (1) Respiratory failure Status: Acute (2) Atrial fibrillation with RVR Status: Acute (3) COPD exacerbation Status: Acute (4) Pneumonia Status: Acute (5) CHF (congestive heart failure) Status: Acute (6) Sepsis Status: Acute - Assessment and Plan (Free Text) Plan: attemp of weaning , BP low , on low dosis of Levophed , on Propofol , continue DuoNeb , Zosyn , Doxycline , Tamiflu , Verapamil , Insulin.
[2017-11-10] MEDS: MethylPREDNISolone 40 mg Vial IVP SCH ×4 (04:30→21:38)
[2017-11-10] MEDS: Piperacillin/Tazobact 3.375 GM in Sodium Chloride 0.9% 100 ML IVPB SCH ×4 (04:31→21:37)
[2017-11-10] MEDS: Albuterol-Ipratrop 3 mg / 0.5 (3 ml) UD INH SCH ×6 (05:18→23:25)
[2017-11-10 05:36] LABS: ABG ALLEN TEST YES; ARTERIAL BLOOD GAS HCO3 26.2 mmol/L (21-28); ARTERIAL BLOOD GAS O2 SAT 99.6 % (95-98); ARTERIAL BLOOD GAS PCO2 49 mm/Hg (35-45); ARTERIAL BLOOD GAS PH 7.36 (7.35-7.45); ARTERIAL BLOOD GAS PO2 177 mm/Hg (80-100); ARTERIAL BLOOD GAS TCO2 29.2 mmol/L (22-28)
[2017-11-10] MEDS: Insulin Lispro (humaLOG) 100 Units/ml Inj SC SCH ×4 (06:40→17:00)
[2017-11-10 07:44] LABS: ALB/GLOB RATIO 0.6 (1.0-2.1); ALBUMIN 2.7 g/dL (3.5-5.0); ALT/SGPT 614 U/L (21-72); AST/SGOT 469 U/L (17-59); BLOOD UREA NITROGEN 44 mg/dl (9-20); CALCIUM 8.4 mg/dL (8.4-10.2); GFR AFRICAN-AMERICAN > 60; GFR NON-AFRICAN AMERICAN 53
[2017-11-10] MEDS: Enoxaparin 60 mg Syringe SC SCH (08:20)
[2017-11-10] MEDS: Multi Vitamins 15 mL UD Oral Solution PO SCH (08:20)
[2017-11-10] MEDS ORDERED: Influenza Vaccine 18yr & older 0.5 ML/45 MCG SYR IM ONE (09:00)
--- NOTE | 2017-11-10 09:49 | RAD ---
PROCEDURE: CHEST RADIOGRAPH, 1 VIEW HISTORY: eval lobar pna COMPARISON: 11/09/2017 FINDINGS: LUNGS: Stable bilateral interstitial and alveolar infiltrates. PLEURA: No pneumothorax or pleural fluid seen. CARDIOVASCULAR: Normal. OSSEOUS STRUCTURES: No significant abnormalities. VISUALIZED UPPER ABDOMEN: Normal. OTHER FINDINGS: Tubes and catheters unchanged. IMPRESSION: Stable bilateral interstitial and alveolar infiltrates.
--- NOTE | 2017-11-10 09:57 | CP.PCM.PN ---
Subjective - Date & Time of Evaluation Date of Evaluation: 11/10/17 Time of Evaluation: 09:54 - Subjective Subjective: Upon walking in the hallway, saw patient's son outside patient is in dstress. Upon evaluation, Expiratory volume on vent 0. audible inspiratory and expiratory sounds with patient's efforts. Et tube band loose. Clinically ET tube is out. Patient self extubated. OG tube placed to suction and removed. ET tube out and removed. Patient encouraged to cough, off sedation, and start aerosol mask humidified. RT and nurse arrived at bedside and informed of events. Objective - Vital Signs/Intake and Output Vital Signs (last 24 hours): Temp Pulse Resp BP Pulse Ox 98.5 F 93 H 16 117/79 100 11/10/17 08:00 11/10/17 08:00 11/10/17 08:00 11/10/17 08:19 11/10/17 08:00 Intake and Output: 11/10/17 11/10/17 06:59 18:59 Intake Total 92 Output Total 100 Balance -8 - Medications Medications: Current Medications Albuterol/Ipratropium (Duoneb 3 Mg/0.5 Mg (3 Ml) Ud) 3 ml INH RQ4 YESENIA Last Admin: 11/10/17 07:28 Dose: 3 ml Ascorbic Acid (Vitamin C 500 Mg Tab) 1,000 mg PO DAILY YESENIA Last Admin: 11/10/17 08:21 Dose: 1,000 mg Enoxaparin Sodium (Lovenox) 60 mg SC Q12 YESENIA PRN Reason: Protocol Last Admin: 11/10/17 08:20 Dose: 60 mg Furosemide (Lasix) 20 mg IVP DAILY YESENIA Last Admin: 11/10/17 08:19 Dose: 20 mg Piperacillin Sod/Tazobactam (Sod 3.375 gm/ Sodium Chloride) 100 mls @ 100 mls/ hr IVPB Q6 YESENIA PRN Reason: Protocol Last Admin: 11/10/17 09:02 Dose: 100 mls/hr Vancomycin HCl 1 gm/ Sodium (Chloride) 250 mls @ 166.667 mls/hr IVPB Q12 YESENIA PRN Reason: Protocol Last Admin: 11/10/17 08:20 Dose: 166.667 mls/hr Doxycycline Hyclate 100 mg/ (Sodium Chloride) 100 mls @ 100 mls/hr IVPB Q12 YESENIA PRN Reason: Protocol Stop: 11/15/17 09:00 Last Admin: 11/10/17 08:22 Dose: 100 mls/hr Lactated Ringer's (Lactated Ringer's) 1,000 mls @ 42 mls/hr IV .[id number] YESENIA Last Admin: 11/09/17 11:44 Dose: 42 mls/hr Norepinephrine Bitartrate 4 mg (/ Dextrose) 254 mls @ 9.52 mls/hr IV .Q24H YESENIA ; 2.5 MCG/MIN PRN Reason: Protocol Last Admin: 11/09/17 13:44 Dose: 2.5 mcg/min, 9.52 mls/hr Propofol (Diprivan) 1,000 mg in 100 mls @ 3.81 mls/hr IV .Q24H YESENIA; 10 MCG/KG/ MIN PRN Reason: Protocol Stop: 11/10/17 19:42 Last Admin: 11/09/17 22:18 Dose: 10 mcg/kg/min, 3.81 mls/hr Insulin Human Lispro (Humalog) 0 units SC Q6H YESENIA PRN Reason: Protocol Last Admin: 11/10/17 00:00 Dose: Not Given Methylprednisolone (Solu-Medrol) 40 mg IVP Q6 [facility] Last Admin: 11/10/17 09:02 Dose: 40 mg Midodrine (Proamatine) 2.5 mg PO TID [facility] Last Admin: 11/10/17 08:20 Dose: 2.5 mg Multivitamins/Vitamin C (Multi-Delyn Liquid) 15 ml PO DAILY [facility] Last Admin: 11/10/17 08:20 Dose: 15 ml Oseltamivir Phosphate (Tamiflu) 30 mg PO BID YESENIA PRN Reason: Protocol Last Admin: 11/10/17 08:20 Dose: 30 mg Pantoprazole Sodium (Protonix Inj) 40 mg IVP DAILY [facility] Last Admin: 11/10/17 08:20 Dose: 40 mg Thiamine HCl (Vitamin B1 Tab) 100 mg PO DAILY [facility] Last Admin: 11/10/17 08:21 Dose: 100 mg Verapamil HCl (Verapamil Inj) 2.5 mg IVP Q4H PRN PRN Reason: Until an adequate response is - Labs Labs: 11/09/17 07:54 11/10/17 05:30 PT 16.3 Seconds (9.8-13.1) H 11/08/17 11:05 INR 1.5 (0.9-1.2) H 11/08/17 11:05 APTT 24.9 Seconds (25.6-37.1) L 11/08/17 11:05
[2017-11-10] MEDS ORDERED: Metoprolol 1 mg/ml Inj IVP SCH (10:15)
--- NOTE | 2017-11-10 10:16 | CP.CCUPN ---
CCU Subjective - Physician Review Subjective (Free Text): Patient seen at bedside. et tube secretions lesser compared to yesterday Critical Care Time Spent (in minutes): 55 CCU Objective - Vital Signs / Intake & Output Vital Signs (Last 4 hours): Vital Signs Temp Pulse Resp BP Pulse Ox 11/10/17 08:19 117/79 11/10/17 08:00 98.5 F 93 H 16 117/79 100 11/10/17 07:00 90 15 107/80 100 Intake and Output (Last 8hrs): Intake & Output 11/09/17 11/10/17 11/10/17 21:59 06:59 14:59 Intake Total 92 Output Total 100 Balance -8 Intake: IV 42 Intake, Piggyback Tube Feeding 50 Free Water Flush Output: Urine 100 Urethral (Bay) 100 - Physical Exam Head: Positive for: Atraumatic, Normocephalic Extroacular Muscles: Positive for: EOMI Mouth: Positive for: Moist Mucous Membranes Neck: Positive for: Normal Range of Motion Respiratory/Chest: Positive for: Good Air Exchange, Decreased Breath Sounds, Rhonchi Cardiovascular: Positive for: Normal S1, S2, Irregular Rhythm Abdomen: Positive for: Normal Bowel Sounds Upper Extremity: Positive for: Normal Inspection Lower Extremity: Positive for: Normal Inspection Neurological: Positive for: Other (sedatd on ventilator) - Medications Active Medications: Active Medications Generic Name Dose Route Start Last Admin Trade Name Freq PRN Reason Stop Dose Admin Albuterol/Ipratropium 3 ml 11/09/17 00:00 11/10/17 07:28 Duoneb 3 Mg/0.5 Mg (3 Ml) Ud INH 3 ml RQ4 YESENIA Administration Ascorbic Acid 1,000 mg 11/09/17 09:15 11/10/17 08:21 Vitamin C 500 Mg Tab PO 1,000 mg DAILY YESENIA Administration Piperacillin Sod/Tazobactam 100 mls @ 100 mls/hr 11/08/17 22:00 11/10/17 09: 02 Sod 3.375 gm/ Sodium Chloride IVPB 100 mls/hr Q6 YESENIA Administration Protocol Doxycycline Hyclate 100 mg/ 100 mls @ 100 mls/hr 11/09/17 09:00 11/10/17 08: 22 Sodium Chloride IVPB 11/15/17 09:00 100 mls/hr Q12 YESENIA Administration Protocol Insulin Human Lispro 0 units 03/10/18 12:00 11/10/17 00:00 Humalog SC Not Given Q6H YESENIA Protocol Methylprednisolone 40 mg 11/08/17 22:00 11/10/17 09:02 Solu-Medrol IVP 40 mg Q6 YESENIA Administration Multivitamins/Vitamin C 15 ml 11/09/17 09:00 11/10/17 08:20 Multi-Delyn Liquid PO 15 ml DAILY YESENIA Administration Oseltamivir Phosphate 30 mg 11/08/17 17:00 11/10/17 08:20 Tamiflu PO 30 mg BID YESENIA Administration Protocol Pantoprazole Sodium 40 mg 11/09/17 09:00 11/10/17 08:20 Protonix Inj IVP 40 mg DAILY YESENIA Administration Thiamine HCl 100 mg 11/09/17 09:00 11/10/17 08:21 Vitamin B1 Tab PO 100 mg DAILY YESENIA Administration Verapamil HCl 2.5 mg 11/08/17 14:47 Verapamil Inj IVP Q4H PRN Until an adequate response is Verapamil HCl 120 mg 11/10/17 10:15 Calan Sr Tab PO DAILY YESENIA - Patient Studies Lab Studies: Microbiology Studies 11/09/17 17:38 Gram Stain - Final Trachasp 11/08/17 15:18 Blood Culture - Preliminary Blood NO GROWTH AFTER 24 HOURS Lab Studies 11/10/17 11/10/17 11/10/17 Range/Units 06:29 05:30 05:22 WBC (4.8-10.8) K/uL RBC (4.40-5.90) Mil/uL Hgb (12.0-18.0) g/dL Hct (35.0-51.0) % MCV (80.0-94.0) fl MCH (27.0-31.0) pg MCHC (33.0-37.0) g/dL RDW (11.5-14.5) % Plt Count (130-400) K/uL pCO2 49 H (35-45) mm/Hg pO2 177 H (80-100) mm/Hg HCO3 26.2 (21-28) mmol/L ABG pH 7.36 (7.35-7.45) ABG Total CO2 29.2 H (22-28) mmol/L ABG O2 Saturation 99.6 H (95-98) % ABG Base Excess 1.5 (-2.0-3.0) mmol/L Garrick Test Yes ABG Potassium 3.7 (3.6-5.2) mmol/L A-a O2 Difference 47.0 mm/Hg Sodium 144 139.0 (132-148) mmol/L Chloride 103 109.0 H (98-107) mmol/L Glucose 194 H (75-110) mg/dL Lactate 1.0 (0.7-2.1) mmol/L Mechanical Rate 16 FiO2 40.0 % Tidal Volume 400 PEEP 5 Potassium 3.9 (3.6-5.0) MMOL/L Carbon Dioxide 27 (22-30) mmol/L Anion Gap 18 (10-20) BUN 44 H (9-20) mg/dl Creatinine 1.3 (0.8-1.5) mg/dl Est GFR ( Amer) > 60 Est GFR (Non-Af Amer) 53 POC Glucose (mg/dL) 189 H (65-110) mg/dL Random Glucose 181 H (75-110) mg/dL Hemoglobin A1c (4.2-6.5) % Lactic Acid (0.7-2.1) MMOL/L Calcium 8.4 (8.4-10.2) mg/dL Phosphorus 3.7 (2.5-4.5) mg/dl Magnesium 2.1 (1.6-2.3) MG/DL Total Bilirubin 0.4 (0.2-1.3) mg/dl AST 469 H D (17-59) U/L ALT 614 H D (21-72) U/L Alkaline Phosphatase 110 (38-126) U/L Troponin I (0.00-0.120) ng/mL Total Protein 7.0 (6.3-8.2) G/DL Albumin 2.7 L D (3.5-5.0) g/dL Globulin 4.3 H (2.2-3.9) gm/dL Albumin/Globulin Ratio 0.6 L (1.0-2.1) Arterial Blood Potassium 3.7 (3.6-5.2) mmol/L Ur L.pneumophila Ag (NEGATIVE) 11/09/17 11/09/17 11/09/17 Range/Units 20:58 16:23 11:26 WBC (4.8-10.8) K/uL RBC (4.40-5.90) Mil/uL Hgb (12.0-18.0) g/dL Hct (35.0-51.0) % MCV (80.0-94.0) fl MCH (27.0-31.0) pg MCHC (33.0-37.0) g/dL RDW (11.5-14.5) % Plt Count (130-400) K/uL pCO2 (35-45) mm/Hg pO2 (80-100) mm/Hg HCO3 (21-28) mmol/L ABG pH (7.35-7.45) ABG Total CO2 (22-28) mmol/L ABG O2 Saturation (95-98) % ABG Base Excess (-2.0-3.0) mmol/L Garrick Test ABG Potassium (3.6-5.2) mmol/L A-a O2 Difference mm/Hg Sodium (132-148) mmol/L Chloride (98-107) mmol/L Glucose (75-110) mg/dL Lactate (0.7-2.1) mmol/L Mechanical Rate FiO2 % Tidal Volume PEEP Potassium (3.6-5.0) MMOL/L Carbon Dioxide (22-30) mmol/L Anion Gap (10-20) BUN (9-20) mg/dl Creatinine (0.8-1.5) mg/dl Est GFR ( Amer) Est GFR (Non-Af Amer) POC Glucose (mg/dL) 162 H 148 H 154 H (65-110) mg/dL Random Glucose (75-110) mg/dL Hemoglobin A1c (4.2-6.5) % Lactic Acid (0.7-2.1) MMOL/L Calcium (8.4-10.2) mg/dL Phosphorus (2.5-4.5) mg/dl Magnesium (1.6-2.3) MG/DL Total Bilirubin (0.2-1.3) mg/dl AST (17-59) U/L ALT (21-72) U/L Alkaline Phosphatase (38-126) U/L Troponin I (0.00-0.120) ng/mL Total Protein (6.3-8.2) G/DL Albumin (3.5-5.0) g/dL Globulin (2.2-3.9) gm/dL Albumin/Globulin Ratio (1.0-2.1) Arterial Blood Potassium (3.6-5.2) mmol/L Ur L.pneumophila Ag (NEGATIVE) 11/09/17 11/09/17 11/09/17 Range/Units 11:15 09:30 08:09 WBC (4.8-10.8) K/uL RBC (4.40-5.90) Mil/uL Hgb (12.0-18.0) g/dL Hct (35.0-51.0) % MCV (80.0-94.0) fl MCH (27.0-31.0) pg MCHC (33.0-37.0) g/dL RDW (11.5-14.5) % Plt Count (130-400) K/uL pCO2 (35-45) mm/Hg pO2 (80-100) mm/Hg HCO3 (21-28) mmol/L ABG pH (7.35-7.45) ABG Total CO2 (22-28) mmol/L ABG O2 Saturation (95-98) % ABG Base Excess (-2.0-3.0) mmol/L Garrick Test ABG Potassium (3.6-5.2) mmol/L A-a O2 Difference mm/Hg Sodium (132-148) mmol/L Chloride (98-107) mmol/L Glucose (75-110) mg/dL Lactate (0.7-2.1) mmol/L Mechanical Rate FiO2 % Tidal Volume PEEP Potassium (3.6-5.0) MMOL/L Carbon Dioxide (22-30) mmol/L Anion Gap (10-20) BUN (9-20) mg/dl Creatinine (0.8-1.5) mg/dl Est GFR ( Amer) Est GFR (Non-Af Amer) POC Glucose (mg/dL) (65-110) mg/dL Random Glucose (75-110) mg/dL Hemoglobin A1c (4.2-6.5) % Lactic Acid 1.4 (0.7-2.1) MMOL/L Calcium (8.4-10.2) mg/dL Phosphorus (2.5-4.5) mg/dl Magnesium (1.6-2.3) MG/DL Total Bilirubin (0.2-1.3) mg/dl AST (17-59) U/L ALT (21-72) U/L Alkaline Phosphatase (38-126) U/L Troponin I 0.1060 (0.00-0.120) ng/mL Total Protein (6.3-8.2) G/DL Albumin (3.5-5.0) g/dL Globulin (2.2-3.9) gm/dL Albumin/Globulin Ratio (1.0-2.1) Arterial Blood Potassium (3.6-5.2) mmol/L Ur L.pneumophila Ag Negative (NEGATIVE) 11/09/17 11/09/17 Range/Units 07:54 04:19 WBC 15.5 H D (4.8-10.8) K/uL RBC 3.21 L (4.40-5.90) Mil/uL Hgb 9.1 L (12.0-18.0) g/dL Hct 29.2 L (35.0-51.0) % MCV 90.9 (80.0-94.0) fl MCH 28.5 (27.0-31.0) pg MCHC 31.3 L (33.0-37.0) g/dL RDW 15.3 H (11.5-14.5) % Plt Count 308 D (130-400) K/uL pCO2 (35-45) mm/Hg pO2 (80-100) mm/Hg HCO3 (21-28) mmol/L ABG pH (7.35-7.45) ABG Total CO2 (22-28) mmol/L ABG O2 Saturation (95-98) % ABG Base Excess (-2.0-3.0) mmol/L Garrick Test ABG Potassium (3.6-5.2) mmol/L A-a O2 Difference mm/Hg Sodium (132-148) mmol/L Chloride (98-107) mmol/L Glucose (75-110) mg/dL Lactate (0.7-2.1) mmol/L Mechanical Rate FiO2 % Tidal Volume PEEP Potassium (3.6-5.0) MMOL/L Carbon Dioxide (22-30) mmol/L Anion Gap (10-20) BUN (9-20) mg/dl Creatinine (0.8-1.5) mg/dl Est GFR ( Amer) Est GFR (Non-Af Amer) POC Glucose (mg/dL) (65-110) mg/dL Random Glucose (75-110) mg/dL Hemoglobin A1c 6.9 H (4.2-6.5) % Lactic Acid (0.7-2.1) MMOL/L Calcium (8.4-10.2) mg/dL Phosphorus (2.5-4.5) mg/dl Magnesium (1.6-2.3) MG/DL Total Bilirubin (0.2-1.3) mg/dl AST (17-59) U/L ALT (21-72) U/L Alkaline Phosphatase (38-126) U/L Troponin I (0.00-0.120) ng/mL Total Protein (6.3-8.2) G/DL Albumin (3.5-5.0) g/dL Globulin (2.2-3.9) gm/dL Albumin/Globulin Ratio (1.0-2.1) Arterial Blood Potassium (3.6-5.2) mmol/L Ur L.pneumophila Ag (NEGATIVE) Laboratory Results - last 24 hr 11/09/17 11/09/17 11/09/17 04:19 07:54 08:09 WBC 15.5 H D RBC 3.21 L Hgb 9.1 L Hct 29.2 L MCV 90.9 MCH 28.5 MCHC 31.3 L RDW 15.3 H Plt Count 308 D pCO2 pO2 HCO3 ABG pH ABG Total CO2 ABG O2 Saturation ABG Base Excess Garrick Test ABG Potassium A-a O2 Difference Sodium Chloride Glucose Lactate Mechanical Rate FiO2 Tidal Volume PEEP Potassium Carbon Dioxide Anion Gap BUN Creatinine Est GFR ( Amer) Est GFR (Non-Af Amer) POC Glucose (mg/dL) Random Glucose Hemoglobin A1c 6.9 H Lactic Acid Calcium Phosphorus Magnesium Total Bilirubin AST ALT Alkaline Phosphatase Troponin I 0.1060 Total Protein Albumin Globulin Albumin/Globulin Ratio Arterial Blood Potassium Ur L.pneumophila Ag 11/09/17 11/09/17 11/09/17 09:30 11:15 11:26 WBC RBC Hgb Hct MCV MCH MCHC RDW Plt Count pCO2 pO2 HCO3 ABG pH ABG Total CO2 ABG O2 Saturation ABG Base Excess Garrick Test ABG Potassium A-a O2 Difference Sodium Chloride Glucose Lactate Mechanical Rate FiO2 Tidal Volume PEEP Potassium Carbon Dioxide Anion Gap BUN Creatinine Est GFR ( Amer) Est GFR (Non-Af Amer) POC Glucose (mg/dL) 154 H Random Glucose Hemoglobin A1c Lactic Acid 1.4 Calcium Phosphorus Magnesium Total Bilirubin AST ALT Alkaline Phosphatase Troponin I Total Protein Albumin Globulin Albumin/Globulin Ratio Arterial Blood Potassium Ur L.pneumophila Ag Negative 11/09/17 11/09/17 11/10/17 16:23 20:58 05:22 WBC RBC Hgb Hct MCV MCH MCHC RDW Plt Count pCO2 49 H pO2 177 H HCO3 26.2 ABG pH 7.36 ABG Total CO2 29.2 H ABG O2 Saturation 99.6 H ABG Base Excess 1.5 Garrick Test Yes ABG Potassium 3.7 A-a O2 Difference 47.0 Sodium 139.0 Chloride 109.0 H Glucose 194 H Lactate 1.0 Mechanical Rate 16 FiO2 40.0 Tidal Volume 400 PEEP 5 Potassium Carbon Dioxide Anion Gap BUN Creatinine Est GFR ( Amer) Est GFR (Non-Af Amer) POC Glucose (mg/dL) 148 H 162 H Random Glucose Hemoglobin A1c Lactic Acid Calcium Phosphorus Magnesium Total Bilirubin AST ALT Alkaline Phosphatase Troponin I Total Protein Albumin Globulin Albumin/Globulin Ratio Arterial Blood Potassium 3.7 Ur L.pneumophila Ag 11/10/17 11/10/17 05:30 06:29 WBC RBC Hgb Hct MCV MCH MCHC RDW Plt Count pCO2 pO2 HCO3 ABG pH ABG Total CO2 ABG O2 Saturation ABG Base Excess Garrick Test ABG Potassium A-a O2 Difference Sodium 144 Chloride 103 Glucose Lactate Mechanical Rate FiO2 Tidal Volume PEEP Potassium 3.9 Carbon Dioxide 27 Anion Gap 18 BUN 44 H Creatinine 1.3 Est GFR ( Amer) > 60 Est GFR (Non-Af Amer) 53 POC Glucose (mg/dL) 189 H Random Glucose 181 H Hemoglobin A1c Lactic Acid Calcium 8.4 Phosphorus 3.7 Magnesium 2.1 Total Bilirubin 0.4 AST 469 H D ALT 614 H D Alkaline Phosphatase 110 Troponin I Total Protein 7.0 Albumin 2.7 L D Globulin 4.3 H Albumin/Globulin Ratio 0.6 L Arterial Blood Potassium Ur L.pneumophila Ag Fingerstick Blood Sugar Results: 188 Critical Care Progress Note - Ventilator Checklist Head of Bed 30 Degrees: Yes Daily Sedation Vacation: Yes Daily Assessment of Readiness to Wean: Yes Daily Spontaneous Breathing Trial: Yes PUD Prophalyxis: Yes DVT Prophylaxis: Yes Oral Care with Chlorhexidine Gluconate {CHG}: Yes Assessment/Plan - Assessment and Plan (Free Text) Plan: Hypoxic and hypercapneic respiratory failure: patient's ET tube fell out, self extubated, continue aerosol to keep spo2 > 92 and Ph b/w 7.35-7.45, contineu bronchodialtors + solumedrol, no wheezing -Multilobar PNA/sepsis: suspect post influenza, check procalcitonin, start tamiflu, vanco + zosyn send for cultures, legionella, fungal, and continue pulmonary toielt, serial lactic -Systolic and diastolic heart failure/A-fib: EF low 25%, rate control with verapamil(orally informed today that there is no IV verapmil), AC on hold 2nd pink urine, TAYLOR VASC score >2, start eliquis orally -OG tube out post extubation, speech and swallow eval pending -monitor urine output, d/c bay -BGm q6hrs, ISS lispro -DVT ppx lovenox(swithc to eliquis) -PUD ppx protonix Tolerated CPAP and self extubated, f/u post extubation ABG -continue ICU monitoring Family at bedside informed of current clinical progress. cc time 55 minutes - Date & Time Date: 11/10/17 Time: 10:16
--- NOTE | 2017-11-10 10:35 | CARD ---
APPROVED REPORT EKG Measurement Heart [id number] <Conclusion> Atrial fibrillation with rapid ventricular response ST & T wave abnormality, consider lateral ischemia Abnormal ECG
[2017-11-10 11:04] LABS: ABG ALLEN TEST YES; ARTERIAL BLOOD GAS HCO3 26.4 mmol/L (21-28); ARTERIAL BLOOD GAS O2 SAT 98.9 % (95-98); ARTERIAL BLOOD GAS PCO2 48 mm/Hg (35-45); ARTERIAL BLOOD GAS PH 7.37 (7.35-7.45); ARTERIAL BLOOD GAS PO2 102 mm/Hg (80-100); ARTERIAL BLOOD GAS TCO2 29.2 mmol/L (22-28)
[2017-11-10] MEDS: Verapamil 120 mg ER Tab PO SCH (11:29)
[2017-11-10 16:11] LABS: OXYCODONE SCREEN negative
[2017-11-10] MEDS ORDERED: Lactated Ringer's 1,000 ML IV SCH (16:30)
--- NOTE | 2017-11-10 19:42 | CP.PCM.PN ---
Subjective - Date & Time of Evaluation Date of Evaluation: 11/10/17 Time of Evaluation: 19:50 - Subjective Subjective: F/U Respiratory Failure. Pt extubated, no A/D Objective - Vital Signs/Intake and Output Vital Signs (last 24 hours): Temp Pulse Resp BP Pulse Ox 98.7 F 84 24 105/63 94 L 11/10/17 16:00 11/10/17 18:00 11/10/17 18:00 11/10/17 18:00 11/10/17 18:00 Intake and Output: 11/10/17 11/11/17 18:59 06:59 Intake Total 1018 Output Total 800 Balance 218 - Medications Medications: Current Medications Albuterol/Ipratropium (Duoneb 3 Mg/0.5 Mg (3 Ml) Ud) 3 ml INH RQ4 YESENIA Last Admin: 11/10/17 19:35 Dose: 3 ml Apixaban (Eliquis) 2.5 mg PO BID YESENIA PRN Reason: Protocol Ascorbic Acid (Vitamin C 500 Mg Tab) 1,000 mg PO DAILY YESENIA Last Admin: 11/10/17 08:21 Dose: 1,000 mg Piperacillin Sod/Tazobactam (Sod 3.375 gm/ Sodium Chloride) 100 mls @ 100 mls/ hr IVPB Q6 YESENIA PRN Reason: Protocol Last Admin: 11/10/17 16:15 Dose: 100 mls/hr Doxycycline Hyclate 100 mg/ (Sodium Chloride) 100 mls @ 100 mls/hr IVPB Q12 YESENIA PRN Reason: Protocol Stop: 11/15/17 09:00 Last Admin: 11/10/17 08:22 Dose: 100 mls/hr Lactated Ringer's (Lactated Ringer's) 1,000 mls @ 42 mls/hr IV .[id number] YESENIA Last Admin: 11/10/17 16:38 Dose: 42 mls/hr Norepinephrine Bitartrate 4 mg (/ Dextrose) 254 mls @ 9.52 mls/hr IV .Q24H YESENIA ; 2.5 MCG/MIN PRN Reason: Protocol Last Admin: 11/10/17 17:23 Dose: 2.5 mcg/min, 9.52 mls/hr Insulin Human Lispro (Humalog) 0 units SC Q6H YESENIA PRN Reason: Protocol Last Admin: 11/10/17 17:00 Dose: 1 unit Methylprednisolone (Solu-Medrol) 40 mg IVP Q6 [facility] Last Admin: 11/10/17 16:13 Dose: 40 mg Multivitamins/Vitamin C (Multi-Delyn Liquid) 15 ml PO DAILY [facility] Last Admin: 11/10/17 08:20 Dose: 15 ml Oseltamivir Phosphate (Tamiflu) 30 mg PO BID YESENIA PRN Reason: Protocol Last Admin: 11/10/17 16:14 Dose: Not Given Pantoprazole Sodium (Protonix Inj) 40 mg IVP DAILY [facility] Last Admin: 11/10/17 08:20 Dose: 40 mg Thiamine HCl (Vitamin B1 Tab) 100 mg PO DAILY [facility] Last Admin: 11/10/17 08:21 Dose: 100 mg Verapamil HCl (Verapamil Inj) 2.5 mg IVP Q4H PRN PRN Reason: Until an adequate response is Verapamil HCl (Calan Sr Tab) 120 mg PO DAILY [facility] Last Admin: 11/10/17 11:29 Dose: 120 mg - Labs Labs: 11/09/17 07:54 11/10/17 05:30 PT 16.3 Seconds (9.8-13.1) H 11/08/17 11:05 INR 1.5 (0.9-1.2) H 11/08/17 11:05 APTT 24.9 Seconds (25.6-37.1) L 11/08/17 11:05 - Constitutional Appears: Chronically Ill - Head Exam Head Exam: NORMAL INSPECTION - Eye Exam Eye Exam: PERRL - ENT Exam Additional comments: Extubated - Neck Exam Neck Exam: Normal Inspection - Respiratory Exam Respiratory Exam: Decreased Breath Sounds, Rhonchi - Cardiovascular Exam Cardiovascular Exam: REGULAR RHYTHM - GI/Abdominal Exam GI & Abdominal Exam: Soft, Normal Bowel Sounds - Extremities Exam Extremities Exam: Normal Inspection - Back Exam Back Exam: NORMAL INSPECTION - Neurological Exam Additional comments: Follows commands, moves all extremities. - Skin Skin Exam: Warm Assessment and Plan (1) Respiratory failure Status: Acute (2) Atrial fibrillation with RVR Status: Acute (3) COPD exacerbation Status: Acute (4) Pneumonia Status: Acute (5) CHF (congestive heart failure) Status: Acute (6) Sepsis Status: Acute - Assessment and Plan (Free Text) Plan: on NC, continue Zosyn, Solumedrol, Eliquis, Lovenox and rest of Tx.
[2017-11-10] MEDS ORDERED: Pneumococcal 23-Valent Vaccine IM ONE (19:50)
[2017-11-11] MEDS: Insulin Lispro (humaLOG) 100 Units/ml Inj SC SCH ×3 (02:34→13:33)
[2017-11-11] MEDS: Piperacillin/Tazobact 3.375 GM in Sodium Chloride 0.9% 100 ML IVPB SCH ×4 (03:07→22:37)
[2017-11-11] MEDS: MethylPREDNISolone 40 mg Vial IVP SCH ×4 (04:00→22:40)
[2017-11-11] MEDS: Albuterol-Ipratrop 3 mg / 0.5 (3 ml) UD INH SCH ×5 (04:36→19:04)
[2017-11-11 05:43] LABS: HEMOGLOBIN 10.1 g/dL (12.0-18.0); MEAN CELL VOLUME 91.2 fl (80.0-94.0); MEAN CORPUSCULAR HEMOGLOBIN 29.2 pg (27.0-31.0); RBC 3.45 Mil/uL (4.40-5.90); WHITE BLOOD COUNT 11.5 K/uL (4.8-10.8)
[2017-11-11 06:08] LABS: ALB/GLOB RATIO 0.7 (1.0-2.1); ALBUMIN 2.8 g/dL (3.5-5.0); CALCIUM 8.6 mg/dL (8.4-10.2)
[2017-11-11] MEDS: Multi Vitamins 15 mL UD Oral Solution PO SCH (09:59)
[2017-11-11] MEDS: Verapamil 120 mg ER Tab PO SCH (12:53)
[2017-11-11] MEDS: Dextrose 5%/0.45% NS 1,000 ML IV SCH (13:33)
--- NOTE | 2017-11-11 15:12 | PQF GENQUE ---
Dr. Blake, Please specify type of pneumonia or possible type of pneumonia in the progress notes: if known :after the work up is completed (Note: CAP, HAP, and HCAP indicate where the pneumonia was acquired, not a specific type.) i.e. Aspiration pneumonia Please document specific aspirate (food, liquids, etc.) Please indicate if this is postprocedural Bacterial (specify organism) Bronchopneumonia (specify organism) Interstitual pneumonia Organizing pneumonia/BOOP Pneumonia with influenza, rashad flu, or H1N1 flu RSV pneumonia Tuberculosis, pulmonary Viral pneumonia Other pneumonia (specify organism or type) Clinically unable to determine Unknown 2. . Please specify the organism causing the pneumonia; if known after the work up is completed. 11/08: CT Chest:: Significant interstitial fibrosis with honeycombing and bronchiectasis on most notably affecting the upper lobes. Superimposed infection not excluded. There also areas of presumed chronic atelectasis/scarring both lung bases with what appears represent a crescentic shaped area low-attenuation surrounded by a peripheral calcification likely representing a chronic granulation tissue (residua of a chronic loculated effusion). There is also crescentic pleural based calcification left posterior sulcus. H and P; Respiratory failure Acute Atrial fibrillation with RVR Acute COPD exacerbation : Acute Pneumonia: Acute CHF Acute Sepsis Acute [employer] note: A Fib with RVR #. CHF #. Post influenza Pneumonia #. Dehydration #. Anemia #. Hyperglycemia 11/08: Intubated on a vent -> 11/10: pt. self extubated This form is a permanent part of the medical record Clarification of your documentation is requested to better reflect the severity of illness and intensity of treatment of your patient. Indicators present [] Specify: [] [] Specify: [] [] Specify: [] [] Specify: [] Location in the medical record that reflects the above clinical findings: [] Treatment Provided: [] PHYSICIAN'S RESPONSE Based on your medical judgment of the clinical indicators outlined above please clarify the following: [] Practitioner response [] If unable to determine, please check the box, sign and date. Present On Admission (POA) Indicator: [] Present at the time of admission [] Not present at the time of admission [] Clinically Undetermined In responding to this query, please exercise your independent professional judgment. The fact that a question is asked does not imply that any particular answer is desired or expected. Thank you for your clarification on this documentation. If you have any questions please call. * Thank you, Alivia Aquino RN ext. #[phone] MTDD
--- NOTE | 2017-11-11 15:16 | PQF GENQUE ---
Dr. 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 Indicators present [] Specify: [] [] Specify: [] [] Specify: [] [] Specify: [] Location in the medical record that reflects the above clinical findings: [] Treatment Provided: [] PHYSICIAN'S RESPONSE Based on your medical judgment of the clinical indicators outlined above please clarify the following: [] Practitioner response [] If unable to determine, please check the box, sign and date. Present On Admission (POA) Indicator: [] Present at the time of admission [] Not present at the time of admission [] Clinically Undetermined In responding to this query, please exercise your independent professional judgment. The fact that a question is asked does not imply that any particular answer is desired or expected. Thank you for your clarification on this documentation. If you have any questions please call. * Thank you, Alivia Aquino RN ext. #[phone] MTDD
[2017-11-11] MEDS: Enoxaparin 60 mg Syringe SC SCH ×2 (16:00→22:41)
--- NOTE | 2017-11-11 16:45 | CP.PCM.PN ---
Subjective - Date & Time of Evaluation Date of Evaluation: 11/11/17 Time of Evaluation: 14:10 - Subjective Subjective: F/u Respiratory failure Pt awake, no A/D, talking with family at bedside. Objective - Vital Signs/Intake and Output Vital Signs (last 24 hours): Temp Pulse Resp BP Pulse Ox 99.3 F 106 H 18 105/73 98 11/11/17 16:24 11/11/17 16:24 11/11/17 16:24 11/11/17 16:24 11/11/17 16:24 Intake and Output: 11/11/17 11/11/17 06:59 18:59 Intake Total 937 537.62 Output Total 250 300 Balance 687 237.62 - Medications Medications: Current Medications Albuterol/Ipratropium (Duoneb 3 Mg/0.5 Mg (3 Ml) Ud) 3 ml INH RQ4 [facility] Last Admin: 11/11/17 15:53 Dose: 3 ml Apixaban (Eliquis) 2.5 mg PO BID [facility] PRN Reason: Protocol Last Admin: 11/11/17 12:53 Dose: Not Given Ascorbic Acid (Vitamin C 500 Mg Tab) 1,000 mg PO DAILY [facility] Last Admin: 11/11/17 10:00 Dose: Not Given Enoxaparin Sodium (Lovenox) 60 mg SC Q12 [facility] PRN Reason: Protocol Last Admin: 11/11/17 16:00 Dose: 60 mg Piperacillin Sod/Tazobactam (Sod 3.375 gm/ Sodium Chloride) 100 mls @ 100 mls/ hr IVPB Q6 [facility] PRN Reason: Protocol Last Admin: 11/11/17 16:00 Dose: 100 mls/hr Doxycycline Hyclate 100 mg/ (Sodium Chloride) 100 mls @ 100 mls/hr IVPB Q12 [facility]ENIA PRN Reason: Protocol Stop: 11/15/17 09:00 Last Admin: 11/11/17 10:02 Dose: 100 mls/hr Norepinephrine Bitartrate 4 mg (/ Dextrose) 254 mls @ 9.52 mls/hr IV .Q24H YESENIA ; 2.5 MCG/MIN PRN Reason: Protocol Last Titration: 11/11/17 09:30 Dose: 0 mcg/min, 0 mls/hr Dextrose/Sodium Chloride (Dextrose 5%/0.45% Ns 1000 Ml) 1,000 mls @ 60 mls/hr IV .[id number] [facility] Stop: 11/12/17 12:57 Last Admin: 11/11/17 13:33 Dose: 60 mls/hr Insulin Human Lispro (Humalog) 0 units SC Q6H YESENIA PRN Reason: Protocol Last Admin: 11/11/17 13:33 Dose: 1 unit Methylprednisolone (Solu-Medrol) 40 mg IVP Q6 [facility] Last Admin: 11/11/17 16:00 Dose: 40 mg Multivitamins/Vitamin C (Multi-Delyn Liquid) 15 ml PO DAILY [facility] Last Admin: 11/11/17 09:59 Dose: Not Given Oseltamivir Phosphate (Tamiflu) 30 mg PO BID [facility] PRN Reason: Protocol Last Admin: 11/11/17 09:59 Dose: Not Given Pantoprazole Sodium (Protonix Inj) 40 mg IVP DAILY [facility] Last Admin: 11/11/17 10:01 Dose: 40 mg Thiamine HCl (Vitamin B1 Tab) 100 mg PO DAILY [facility] Last Admin: 11/11/17 10:00 Dose: Not Given Verapamil HCl (Verapamil Inj) 2.5 mg IVP Q4H PRN PRN Reason: Until an adequate response is Verapamil HCl (Calan Sr Tab) 120 mg PO DAILY [facility] Last Admin: 11/11/17 12:53 Dose: Not Given - Labs Labs: 11/11/17 04:20 11/11/17 04:20 PT 16.3 Seconds (9.8-13.1) H 11/08/17 11:05 INR 1.5 (0.9-1.2) H 11/08/17 11:05 APTT 24.9 Seconds (25.6-37.1) L 11/08/17 11:05 - Constitutional Appears: Chronically Ill - Head Exam Head Exam: NORMAL INSPECTION - Eye Exam Eye Exam: PERRL - ENT Exam ENT Exam: Normal Exam - Neck Exam Neck Exam: Normal Inspection - Respiratory Exam Respiratory Exam: Decreased Breath Sounds, Rhonchi - Cardiovascular Exam Cardiovascular Exam: REGULAR RHYTHM - GI/Abdominal Exam GI & Abdominal Exam: Soft, Normal Bowel Sounds - Extremities Exam Extremities Exam: Normal Inspection - Back Exam Back Exam: NORMAL INSPECTION - Neurological Exam Neurological Exam: Awake Additional comments: Follows commands, moves all extremities. - Skin Skin Exam: Warm Assessment and Plan (1) Respiratory failure Status: Acute (2) Atrial fibrillation with RVR Status: Acute (3) COPD exacerbation Status: Acute (4) Pneumonia Status: Acute (5) CHF (congestive heart failure) Status: Acute (6) Sepsis Status: Acute - Assessment and Plan (Free Text) Plan: O2 NC, Pt failed the swallow eval, on NPO, continue Zosyn, Solumedrol, Duoneb and rast of Tx.
[2017-11-11 17:37] LABS: FOLATE 14.4 ng/mL
[2017-11-11 20:09] LABS: ABG ALLEN TEST YES; ARTERIAL BLOOD GAS HCO3 28.5 mmol/L (21-28); ARTERIAL BLOOD GAS HEMOGLOBIN 9.8 g/dL (11.7-17.4); ARTERIAL BLOOD GAS O2 CAPACITY 13.4 mL/dL (16-24); ARTERIAL BLOOD GAS O2 SAT 96.8 % (95-98); ARTERIAL BLOOD GAS PCO2 50 mm/Hg (35-45); ARTERIAL BLOOD GAS PH 7.39 (7.35-7.45); ARTERIAL BLOOD GAS PO2 72 mm/Hg (80-100); ARTERIAL BLOOD GAS TCO2 31.8 mmol/L (22-28)
[2017-11-12] MEDS: Albuterol-Ipratrop 3 mg / 0.5 (3 ml) UD INH SCH ×6 (00:07→19:49)
[2017-11-12] MEDS: Piperacillin/Tazobact 3.375 GM in Sodium Chloride 0.9% 100 ML IVPB SCH ×4 (04:45→21:42)
[2017-11-12] MEDS: MethylPREDNISolone 40 mg Vial IVP SCH ×4 (04:46→21:42)
[2017-11-12] MEDS: Insulin Lispro (humaLOG) 100 Units/ml Inj SC SCH ×4 (05:36→18:01)
[2017-11-12 05:48] LABS: HEMOGLOBIN 9.4 g/dL (12.0-18.0); MEAN CELL VOLUME 91.4 fl (80.0-94.0); MEAN CORPUSCULAR HEMOGLOBIN 28.9 pg (27.0-31.0); MEAN CORPUSCULAR HGB CONC 31.6 g/dL (33.0-37.0); RBC 3.25 Mil/uL (4.40-5.90); RED CELL DISTRIBUTION WIDTH 15.1 % (11.5-14.5); WHITE BLOOD COUNT 8.7 K/uL (4.8-10.8)
[2017-11-12 05:50] LABS: BLOOD UREA NITROGEN 43 mg/dl (9-20); CALCIUM 8.5 mg/dL (8.4-10.2); GFR AFRICAN-AMERICAN > 60; GFR NON-AFRICAN AMERICAN > 60
[2017-11-12] MEDS: Dextrose 5%/0.45% NS 1,000 ML IV SCH (06:09)
--- NOTE | 2017-11-12 08:51 | PN ---
DATE: 11/11/2017 CRITICAL CARE PROGRESS NOTE LOCATION: The patient is in ICU bed 422. SUBJECTIVE: The patient is seen and evaluated at the bedside. Past medical, surgical, and social history reviewed. An 82 year-old male, a nonsmoker with history significant for osteoarthritis status post presumed influenza treated 3 weeks ago, admitted with progressively worsening shortness of breath secondary to hypoxic respiratory failure. Intubated on 11/08/2017 and self extubated yesterday. He was placed on oxygen supplement by nasal cannula. No distress noted. No stridor. PHYSICAL EXAMINATION: VITAL SIGNS: Overnight normotensive, afebrile, and heart rate of 93. Telemetry. Atrial fibrillation, blood pressure of 121/95, respiratory rate of 15 to 20 thoracoabdominal and saturating 100%. HEENT: Examination of head, eyes, ears, nose and throat: Pupils are reactive. Conjunctivae and sclerae are white. NECK: Supple. Trachea is central. CHEST: Bilateral breath sounds clear to auscultation. HEART: Rhythm irregular. No audible murmur. ABDOMEN: Bowel sounds are present. Soft. EXTREMITIES: Trace edema. NEUROLOGIC: Examination is nonfocal. CURRENT MEDICATIONS: Albuterol, Atrovent inhalation 3 mL every 4 hours, Eliquis 2.5 mg twice daily, ascorbic acid 1000 mg p.o. daily, doxycycline 100 mg IV q. 12 hours., Ringer's lactate at 42 mL per hour, Solu-Medrol 40 mg IV q. 6 hours., and multivitamins 15 mL p.o. daily.. Levophed at 2.5 mcg per minute, Tamiflu 30 mg p.o. b.i.d., Protonix 40 IV daily, Zosyn 3.375 g IV q. 6 hours., vitamin B 100 mg daily, and Calan SR 120 mg p.o. daily. LABORATORY DATA: WBC of 11.5, hemoglobin of 10.1, hematocrit of 31.5, and platelet count of 345. PT is 16, INR is 1.5, and PTT is 24.9. ABGs; pH of 7.37, pCO2 of 48, and pO2 102 on FIO2 of 28%. SMA-7: Sodium of 145, potassium of 3.8, chloride of 102, CO2 of 28, blood urea nitrogen of 49, and creatinine of 1.4. Glucose random 170 and calcium of 8.6. Total bilirubin of 0.5, AST of 178, ALT of 451, alkaline phosphatase of 91, total protein of 6.2 and albumin of 2.8. Toxicology: Urine screen is negative. Serology; urine Legionella antigen negative. Influenza A and B negative. Microbiology: Sputum culture report pending. Blood culture: No growth reported. Nasal smear; MRSA negative. IMAGING DATA: Chest x-ray on 11/10/2017, stable bilateral interstitial and alveolar infiltrate. IMPRESSION: 1. Neurologic: Alert and oriented to name, place and time. 2. Pulmonary: Acute hypoxic respiratory failure. Bilateral community-acquired pneumonia. Status post vent dependent respiratory failure and self extubated. Currently on oxygen supplement, saturating over 94%. No distress noted. Continue antibiotic empirically on Zosyn and doxycycline. 3. Cardiac: Atrial fibrillation, rate controlled on Eliquis and verapamil 120 mg p.o. daily. Hypotension improved, off pressor support. 4. Gastrointestinal: Abnormal liver enzymes, probably related to hypotension/ischemic hepatitis. Closely monitor. Pending liver function tests. 5. Renal function: Prerenal azotemia, hypoalbuminemia. 6. Endocrine: No acute issues. 7. Musculoskeletal: Osteoarthritis with a deformed both hands stable. 8. Prophylaxis: Continue deep venous thrombosis and gastrointestinal prophylaxis. PLAN: Swallow evaluation and start regular heart healthy diet, if cleared by speech and swallow evaluation. Bao Pimentel MD
[2017-11-12] MEDS: Enoxaparin 60 mg Syringe SC SCH ×2 (11:31→21:42)
[2017-11-12] MEDS: Verapamil 120 mg ER Tab PO SCH (11:32)
[2017-11-12] MEDS: Multi Vitamins 15 mL UD Oral Solution PO SCH (11:33)
--- NOTE | 2017-11-12 15:35 | CP.PCM.PN ---
Subjective - Date & Time of Evaluation Date of Evaluation: 11/12/17 Time of Evaluation: 11:20 - Subjective Subjective: F/U Respiratory failure. Pt awake, talking, no A/D. Objective - Vital Signs/Intake and Output Vital Signs (last 24 hours): Temp Pulse Resp BP Pulse Ox 98.2 F 158 H 16 129/80 97 11/12/17 12:00 11/12/17 14:22 11/12/17 12:00 11/12/17 12:00 11/12/17 12:00 Intake and Output: 11/12/17 11/12/17 06:59 18:59 Intake Total 1000 Output Total 600 Balance 400 - Medications Medications: Current Medications Albuterol/Ipratropium (Duoneb 3 Mg/0.5 Mg (3 Ml) Ud) 3 ml INH RQ4 [facility] Last Admin: 11/12/17 15:31 Dose: 3 ml Apixaban (Eliquis) 2.5 mg PO BID [facility] PRN Reason: Protocol Last Admin: 11/11/17 12:53 Dose: Not Given Ascorbic Acid (Vitamin C 500 Mg Tab) 1,000 mg PO DAILY [facility] Last Admin: 11/12/17 11:38 Dose: 1,000 mg Enoxaparin Sodium (Lovenox) 60 mg SC Q12 [facility] PRN Reason: Protocol Last Admin: 11/12/17 11:31 Dose: 60 mg Piperacillin Sod/Tazobactam (Sod 3.375 gm/ Sodium Chloride) 100 mls @ 100 mls/ hr IVPB Q6 [facility] PRN Reason: Protocol Last Admin: 11/12/17 11:38 Dose: 100 mls/hr Insulin Human Lispro (Humalog) 0 units SC Q6H [facility] PRN Reason: Protocol Last Admin: 11/12/17 12:04 Dose: 1 unit Methylprednisolone (Solu-Medrol) 40 mg IVP Q6 [facility] Last Admin: 11/12/17 11:34 Dose: 40 mg Multivitamins/Vitamin C (Multi-Delyn Liquid) 15 ml PO DAILY [facility] Last Admin: 11/12/17 11:33 Dose: 15 ml Pantoprazole Sodium (Protonix Inj) 40 mg IVP DAILY [facility] Last Admin: 11/12/17 11:33 Dose: 40 mg Thiamine HCl (Vitamin B1 Tab) 100 mg PO DAILY [facility] Last Admin: 11/12/17 11:37 Dose: 100 mg Verapamil HCl (Verapamil Inj) 2.5 mg IVP Q4H PRN PRN Reason: Until an adequate response is Verapamil HCl (Calan Sr Tab) 120 mg PO DAILY [facility] Last Admin: 11/12/17 11:32 Dose: 120 mg - Labs Labs: 11/12/17 04:20 11/12/17 04:20 PT 16.3 Seconds (9.8-13.1) H 11/08/17 11:05 INR 1.5 (0.9-1.2) H 11/08/17 11:05 APTT 24.9 Seconds (25.6-37.1) L 11/08/17 11:05 - Constitutional Appears: Chronically Ill - Head Exam Head Exam: NORMAL INSPECTION - Eye Exam Eye Exam: PERRL - ENT Exam ENT Exam: Normal Exam - Neck Exam Neck Exam: Normal Inspection - Respiratory Exam Respiratory Exam: Decreased Breath Sounds, Rhonchi - Cardiovascular Exam Cardiovascular Exam: REGULAR RHYTHM - GI/Abdominal Exam GI & Abdominal Exam: Soft, Normal Bowel Sounds - Extremities Exam Extremities Exam: Normal Inspection - Back Exam Back Exam: NORMAL INSPECTION - Neurological Exam Neurological Exam: Awake Additional comments: Follows commands, moves all extremities. - Skin Skin Exam: Warm Assessment and Plan (1) Respiratory failure Status: Acute (2) Atrial fibrillation with RVR Status: Acute (3) COPD exacerbation Status: Acute (4) Pneumonia Status: Acute (5) CHF (congestive heart failure) Status: Acute (6) Sepsis Status: Acute - Assessment and Plan (Free Text) Plan: Repeat swallow eval today, to have puree diet thick fluid, continue current Tx.
[2017-11-13] MEDS: Albuterol-Ipratrop 3 mg / 0.5 (3 ml) UD INH SCH ×7 (00:28→23:26)
[2017-11-13] MEDS: Insulin Lispro (humaLOG) 100 Units/ml Inj SC SCH ×4 (01:25→21:04)
[2017-11-13] MEDS: MethylPREDNISolone 40 mg Vial IVP SCH ×4 (04:06→21:03)
[2017-11-13] MEDS: Piperacillin/Tazobact 3.375 GM in Sodium Chloride 0.9% 100 ML IVPB SCH ×4 (04:06→21:09)
[2017-11-13 05:17] LABS: HEMOGLOBIN 10.2 g/dL (12.0-18.0); MEAN CORPUSCULAR HEMOGLOBIN 29.7 pg (27.0-31.0); MEAN CORPUSCULAR HGB CONC 32.6 g/dL (33.0-37.0); RBC 3.42 Mil/uL (4.40-5.90); RED CELL DISTRIBUTION WIDTH 15.1 % (11.5-14.5); WHITE BLOOD COUNT 10.5 K/uL (4.8-10.8)
[2017-11-13 05:39] LABS: BLOOD UREA NITROGEN 47 mg/dl (9-20); GFR AFRICAN-AMERICAN > 60; GFR NON-AFRICAN AMERICAN > 60
[2017-11-13 05:40] LABS: CALCIUM 8.6 mg/dL (8.4-10.2)
[2017-11-13] MEDS: Verapamil 120 mg ER Tab PO SCH (08:38)
[2017-11-13] MEDS: Multi Vitamins 15 mL UD Oral Solution PO SCH (08:39)
[2017-11-13] MEDS: Enoxaparin 60 mg Syringe SC SCH ×2 (08:39→21:03)
--- NOTE | 2017-11-13 08:41 | PN ---
CRITICAL CARE PROGRESS NOTE DATE: 11/12/2017 LOCATION: The patient in ICU, bed 422. TIME SPENT: 35 minutes. SUBJECTIVE: The patient is seen and evaluated at the bedside. Past medical, surgical, and social history reviewed. An 82-year-old male, nonsmoker with history significant for osteoarthritis, admitted with community-acquired pneumonia, hypoxic respiratory failure, required intubation, and mechanically assisted ventilation, currently self extubated, and remains on nasal cannula. No distress noted. No stridor. Pulse oximetry 97%. CT chest done during this admission reviewed and noted to have bilateral diffuse interstitial lung disease with honeycombing involving upper and lower lobes of the peripheral areas, status post speech and swallow evaluation, recommended to continue with nectar-thick liquid and tolerating well without any sign of aspiration or cough. OBJECTIVE: CURRENT VITAL SIGNS: Temperature 98.3, heart rate 100, blood pressure 120/74, mean arterial pressure 89, respiratory rate 15, saturation 98%, intake 1955, output 1050, positive balance 905, and weight 138 pounds. HEAD, EYES, EARS, NOSE, AND THROAT: Pupils are reactive. Conjunctivae pink. Sclerae white. NECK: Supple. Trachea central. CHEST: Bilateral breath sounds expiration prolonged scattered rhonchi. HEART: Rhythm regular. S1 and S2 normal in intensity. No S3, S4, or gallop. No audible murmur. ABDOMEN: Bowel sounds present and soft. Liver and spleen not palpable. Bladder not distended. EXTREMITIES: No clubbing, cyanosis, or edema. Both hands deformed from degenerative arthritis. CURRENT MEDICATIONS: Include Apixaban 2.5 mg twice daily, albuterol and Atrovent inhalation every 4 hours, ascorbic acid 1000 mg daily, D5 half normal at 60 mL per hour, Lovenox 60 subcutaneously q.12 hours, Solu-Medrol 40 mg IV q.6 hours, multivitamin tablet daily, Protonix 40 IV daily, Zosyn 3.375 g IV q.6 hours, thiamine 100 mg daily, and verapamil 2.5 mg IV q.4 hours p.r.n. and verapamil SR 120 mg p.o. daily. IMPRESSION AND PLAN: 1. Neurology: Alert, awake, and oriented to name, place and time and no acute issues noted. 2. Pulmonary: Status post hypoxic respiratory failure, requiring intubation and mechanical ventilation, status post extubation on oxygen supplement 2 L saturating 100%. CT done during the admission shows extensive bilateral pulmonary fibrosis with superimposed pneumonia involving right upper lobe. Sputum positive for Staphylococcus aureus. Continue antibiotic. Currently on Vibramycin and Zosyn as per pulmonary consult. Continue Solu-Medrol, wean off Solu-Medrol to p.o. 3. Cardiac: Atrial fibrillation, rate controlled on Lovenox 100 mg subcutaneously q.12 hours and Calan SR 120 mg p.o. daily. 4. Gastrointestinal: Abnormal liver function test, follow the trend. Hypoalbuminemia secondary to malnutrition, increase p.o. intake as tolerated. Monitor for aspiration. 5. Hematology: Anemia from chronic disease. Current hemoglobin 9.4. 6. Renal: Acute on chronic renal insufficiency improving. Continue deep venous thrombosis and gastrointestinal prophylaxis. Keep head of bed 30 degrees up, closely monitor for aspiration. Bao Pimentel MD
[2017-11-13] MEDS: Pantoprazole 40 mg EC Tab PO SCH (08:59)
[2017-11-13] MEDS ORDERED: methylPREDNISolone 40 MG in Sodium Chloride 0.9% 50 ML IVPB SCH (09:00)
--- NOTE | 2017-11-13 09:40 | CP.CCUPN ---
CCU Subjective - Physician Review Subjective (Free Text): Awake and alert, off BiPAP now, SPo2 98% on nasal cannula. Denies any SOB / chest discomfort at bed rest, no nausea, has [assed swallow eval yesterday, feels hungry. On OVFs with D5/0.45% NS at 60 ml/hr. Other VS and I/Os reviewed. No fever spikes overnight. ROS: No other pertinent negs or positives on 10+ system review. PMSFH: All other Nursing and physician documentation reviewed to date; no new pertinent info noted relevant to current medical problems. CXR: ( my interp): None todaym film for 11/10 reviewed: Bilat basilar infiltrates reported. EXAM- HEENT: no icterus, no gaze preference, pupils equal and reactive, no icterus NECK: No JVD, supple, carotids equal upstroke bilat/no bruits CHEST: decreased BS bases, otherwise clear bilat, no wheezes audible HEART: regular distant, S1S2, no rubs. ABD: soft, no distention, no tympany, no palp tenderness, BS hypoactive EXT: +bilat edema , R worse than L. No peripheral/ digital cyanosis, no calf tenderness or palpable cords, distal pulses intact and symmetrical. NEURO: no gross focal motor deficits SKIN: no rashes, warm and dry. LABS: WBC= 10.5 HGB= 10.2 PLTs= 288K INR 1.5 on 11/08. Na= 151 K= 3.8 HCO3=31 CL= 107 BUN/Cr= 47/1.1 BS= 215 AST / ALT decreased: 178/451 MAJOR PROBLEMS: 1. Acute Hypoxemic Resp failure 2. Bilateral Pneumonia 3. Systolic CHF 4. Hypernatremia / Azotemia 5. Rate Controlled Atrial Fib, on AC. PLAN: 1. ECHO results from 11/09 noted with EF 25%. Cardiology eval pending. 2. Stop IVFs, will need short term D5W infusion to prevent further Hypernatremia 3. Lasix PRN. 4. Empiric Abx coverage noted since 11/08. 5. Consider stopping Verapamil and use cardioselective BB for rate control. CCU Objective - Vital Signs / Intake & Output Vital Signs (Last 4 hours): Vital Signs Temp Pulse Resp BP Pulse Ox 11/13/17 08:38 110 H 129/64 11/13/17 08:00 97.9 F 103 H 15 129/84 100 11/13/17 06:00 96 H 14 115/76 100 Intake and Output (Last 8hrs): Intake & Output 11/12/17 11/13/17 11/13/17 22:59 06:59 14:59 Intake Total 830 580 Output Total 300 Balance 830 280 Intake: IV 480 480 Intake, Piggyback 300 100 Oral 50 Output: Urine 300 Urine, Voided 300 - Physical Exam Head: Positive for: Atraumatic, Normocephalic Pupils: Positive for: PERRL Extroacular Muscles: Positive for: EOMI Conjunctiva: Negative for: Icteric Mouth: Positive for: Moist Mucous Membranes Neck: Positive for: Normal Range of Motion. Negative for: JVD Respiratory/Chest: Positive for: Good Air Exchange, Decreased Breath Sounds Cardiovascular: Positive for: Normal S1, S2, Irregular Rhythm Abdomen: Positive for: Normal Bowel Sounds. Negative for: Tenderness, Distention, Mass/Organomegaly Upper Extremity: Positive for: Normal Inspection Lower Extremity: Positive for: Normal Inspection, NORMAL PULSES. Negative for: CALF TENDERNESS, Cyanosis Neurological: Positive for: Motor Func Grossly Intact, Normal Sensory Function, Other (sedatd on ventilator) Skin: Positive for: Warm, Dry. Negative for: Rashes Psychiatric: Positive for: Alert, Oriented x 3 - Medications Active Medications: Active Medications Generic Name Dose Route Start Last Admin Trade Name Freq PRN Reason Stop Dose Admin Albuterol/Ipratropium 3 ml 11/09/17 00:00 11/13/17 07:20 Duoneb 3 Mg/0.5 Mg (3 Ml) Ud INH 3 ml RQ4 YESENIA Administration Apixaban 2.5 mg 11/11/17 09:00 11/11/17 12:53 Eliquis PO Not Given BID YESENIA Protocol Ascorbic Acid 1,000 mg 11/09/17 09:15 11/13/17 08:39 Vitamin C 500 Mg Tab PO 1,000 mg DAILY [facility] Administration Carvedilol 12.5 mg 11/13/17 09:00 Coreg PO Q12 YESENIA Enoxaparin Sodium 60 mg 11/11/17 13:00 11/13/17 08:39 Lovenox SC 60 mg Q12 YESENIA Administration Protocol Piperacillin Sod/Tazobactam 100 mls @ 100 mls/hr 11/08/17 22:00 11/13/17 09: 00 Sod 3.375 gm/ Sodium Chloride IVPB 100 mls/hr Q6 YESENIA Administration Protocol Dextrose 1,000 mls @ 50 mls/hr 11/13/17 09:00 11/13/17 08:58 Dextrose 5% In Water 1000 Ml IV 11/15/17 09:01 50 mls/hr .Q20H YESENIA Administration Insulin Human Lispro 0 units 11/09/17 12:00 11/13/17 01:25 Humalog SC 1 unit Q6H [facility]ENIA Administration Protocol Methylprednisolone 40 mg 11/13/17 09:00 11/13/17 09:01 Solu-Medrol IVP 40 mg Q12 YESENIA Administration Multivitamins/Vitamin C 15 ml 11/09/17 09:00 11/13/17 08:39 Multi-Delyn Liquid PO 15 ml DAILY [facility] Administration Pantoprazole Sodium 40 mg 11/13/17 09:00 11/13/17 08:59 Protonix Ec Tab PO Not Given DAILY [facility] Thiamine HCl 100 mg 11/09/17 09:00 11/13/17 08:39 Vitamin B1 Tab PO 100 mg DAILY [facility]ENIA Administration - Patient Studies Lab Studies: Microbiology Studies 11/08/17 15:18 Blood Culture - Preliminary Blood NO GROWTH AFTER 4 DAYS 11/09/17 17:38 Gram Stain - Final Trachasp Sputum Culture - Final Staphylococcus Aureus Lab Studies 11/13/17 11/13/17 11/13/17 Range/Units 05:32 04:20 04:20 WBC 10.5 (4.8-10.8) K/uL RBC 3.42 L (4.40-5.90) Mil/uL Hgb 10.2 L (12.0-18.0) g/dL Hct 31.2 L (35.0-51.0) % MCV 91.0 (80.0-94.0) fl MCH 29.7 (27.0-31.0) pg MCHC 32.6 L (33.0-37.0) g/dL RDW 15.1 H (11.5-14.5) % Plt Count 288 (130-400) K/uL Sodium 151 H (132-148) mmol/l Potassium 3.8 (3.6-5.0) MMOL/L Chloride 107 (98-107) mmol/L Carbon Dioxide 31 H (22-30) mmol/L Anion Gap 17 (10-20) BUN 47 H (9-20) mg/dl Creatinine 1.1 (0.8-1.5) mg/dl Est GFR ( Amer) > 60 Est GFR (Non-Af Amer) > 60 POC Glucose (mg/dL) 202 H (65-110) mg/dL Random Glucose 215 H (75-110) mg/dL Calcium 8.6 (8.4-10.2) mg/dL 11/12/17 11/12/17 11/12/17 Range/Units 23:45 20:56 17:04 WBC (4.8-10.8) K/uL RBC (4.40-5.90) Mil/uL Hgb (12.0-18.0) g/dL Hct (35.0-51.0) % MCV (80.0-94.0) fl MCH (27.0-31.0) pg MCHC (33.0-37.0) g/dL RDW (11.5-14.5) % Plt Count (130-400) K/uL Sodium (132-148) mmol/l Potassium (3.6-5.0) MMOL/L Chloride (98-107) mmol/L Carbon Dioxide (22-30) mmol/L Anion Gap (10-20) BUN (9-20) mg/dl Creatinine (0.8-1.5) mg/dl Est GFR ( Amer) Est GFR (Non-Af Amer) POC Glucose (mg/dL) 174 H 165 H 148 H (65-110) mg/dL Random Glucose (75-110) mg/dL Calcium (8.4-10.2) mg/dL 11/12/17 Range/Units 11:39 WBC (4.8-10.8) K/uL RBC (4.40-5.90) Mil/uL Hgb (12.0-18.0) g/dL Hct (35.0-51.0) % MCV (80.0-94.0) fl MCH (27.0-31.0) pg MCHC (33.0-37.0) g/dL RDW (11.5-14.5) % Plt Count (130-400) K/uL Sodium (132-148) mmol/l Potassium (3.6-5.0) MMOL/L Chloride (98-107) mmol/L Carbon Dioxide (22-30) mmol/L Anion Gap (10-20) BUN (9-20) mg/dl Creatinine (0.8-1.5) mg/dl Est GFR ( Amer) Est GFR (Non-Af Amer) POC Glucose (mg/dL) 161 H (65-110) mg/dL Random Glucose (75-110) mg/dL Calcium (8.4-10.2) mg/dL Laboratory Results - last 24 hr 11/12/17 11/12/17 11/12/17 11:39 17:04 20:56 WBC RBC Hgb Hct MCV MCH MCHC RDW Plt Count Sodium Potassium Chloride Carbon Dioxide Anion Gap BUN Creatinine Est GFR ( Amer) Est GFR (Non-Af Amer) POC Glucose (mg/dL) 161 H 148 H 165 H Random Glucose Calcium 11/12/17 11/13/17 11/13/17 23:45 04:20 04:20 WBC 10.5 RBC 3.42 L Hgb 10.2 L Hct 31.2 L MCV 91.0 MCH 29.7 MCHC 32.6 L RDW 15.1 H Plt Count 288 Sodium 151 H Potassium 3.8 Chloride 107 Carbon Dioxide 31 H Anion Gap 17 BUN 47 H Creatinine 1.1 Est GFR ( Amer) > 60 Est GFR (Non-Af Amer) > 60 POC Glucose (mg/dL) 174 H Random Glucose 215 H Calcium 8.6 11/13/17 05:32 WBC RBC Hgb Hct MCV MCH MCHC RDW Plt Count Sodium Potassium Chloride Carbon Dioxide Anion Gap BUN Creatinine Est GFR ( Amer) Est GFR (Non-Af Amer) POC Glucose (mg/dL) 202 H Random Glucose Calcium Fingerstick Blood Sugar Results: Review of Systems - Review of Systems All systems: reviewed and no additional remarkable complaints except (as above) Critical Care Progress Note - Nutrition Nutrition: Nutrition Category Date Time Status Dysphagia/Modified Consistency Diet [DIET] Diets 11/13/17 Breakfast Active
--- NOTE | 2017-11-13 14:00 | CP.PCM.PN ---
Subjective - Date & Time of Evaluation Date of Evaluation: 11/13/17 Time of Evaluation: 11:20 - Subjective Subjective: F/U Respiratory failure. No A/D, no SOB, passed swallow eval yesterday, on NC 2 L/M, poor appetite reported by nurse. Objective - Vital Signs/Intake and Output Vital Signs (last 24 hours): Temp Pulse Resp BP Pulse Ox 98.2 F 91 H 18 123/65 100 11/13/17 12:00 11/13/17 12:12 11/13/17 12:00 11/13/17 12:12 11/13/17 12:00 Intake and Output: 11/13/17 11/13/17 06:59 18:59 Intake Total 970 610 Output Total 300 Balance 670 610 - Medications Medications: Current Medications Albuterol/Ipratropium (Duoneb 3 Mg/0.5 Mg (3 Ml) Ud) 3 ml INH RQ4 [facility] Last Admin: 11/13/17 11:16 Dose: 3 ml Apixaban (Eliquis) 2.5 mg PO BID YESENIA PRN Reason: Protocol Last Admin: 11/11/17 12:53 Dose: Not Given Ascorbic Acid (Vitamin C 500 Mg Tab) 1,000 mg PO DAILY [facility] Last Admin: 11/13/17 08:39 Dose: 1,000 mg Carvedilol (Coreg) 12.5 mg PO Q12 [facility] Last Admin: 11/13/17 12:12 Dose: 12.5 mg Enoxaparin Sodium (Lovenox) 60 mg SC Q12 [facility]ENIA PRN Reason: Protocol Last Admin: 11/13/17 08:39 Dose: 60 mg Piperacillin Sod/Tazobactam (Sod 3.375 gm/ Sodium Chloride) 100 mls @ 100 mls/ hr IVPB Q6 [facility]ENIA PRN Reason: Protocol Last Admin: 11/13/17 09:00 Dose: 100 mls/hr Dextrose (Dextrose 5% In Water 1000 Ml) 1,000 mls @ 50 mls/hr IV .Q20H YESENIA Stop: 11/15/17 09:01 Last Admin: 11/13/17 08:58 Dose: 50 mls/hr Insulin Human Lispro (Humalog) 0 units SC Q6H [facility]ENIA PRN Reason: Protocol Last Admin: 11/13/17 12:13 Dose: 2 unit Methylprednisolone (Solu-Medrol) 40 mg IVP Q12 [facility] Last Admin: 11/13/17 09:01 Dose: 40 mg Multivitamins/Vitamin C (Multi-Delyn Liquid) 15 ml PO DAILY [facility] Last Admin: 11/13/17 08:39 Dose: 15 ml Pantoprazole Sodium (Protonix Ec Tab) 40 mg PO DAILY [facility] Last Admin: 11/13/17 08:59 Dose: Not Given Thiamine HCl (Vitamin B1 Tab) 100 mg PO DAILY [facility] Last Admin: 11/13/17 08:39 Dose: 100 mg - Labs Labs: 11/13/17 04:20 11/13/17 04:20 PT 16.3 Seconds (9.8-13.1) H 11/08/17 11:05 INR 1.5 (0.9-1.2) H 11/08/17 11:05 APTT 24.9 Seconds (25.6-37.1) L 11/08/17 11:05 - Constitutional Appears: Chronically Ill - Head Exam Head Exam: NORMAL INSPECTION - Eye Exam Eye Exam: PERRL - ENT Exam ENT Exam: Normal Exam - Neck Exam Neck Exam: Normal Inspection - Respiratory Exam Respiratory Exam: Decreased Breath Sounds (at bases), Rhonchi (scattered b/l) - Cardiovascular Exam Cardiovascular Exam: REGULAR RHYTHM - GI/Abdominal Exam GI & Abdominal Exam: Soft, Normal Bowel Sounds - Extremities Exam Extremities Exam: Normal Inspection - Back Exam Back Exam: NORMAL INSPECTION - Neurological Exam Neurological Exam: Awake Additional comments: Follows commands, moves all extremities. - Skin Skin Exam: Warm Assessment and Plan (1) Respiratory failure Status: Acute (2) Atrial fibrillation with RVR Status: Acute (3) COPD exacerbation Status: Acute (4) Pneumonia Status: Acute (5) CHF (congestive heart failure) Status: Acute (6) Sepsis Status: Acute - Assessment and Plan (Free Text) Plan: Contine NC 2 L/M, continue Zosyn, Duoneb, Solumedrol and rest f Tx. Pt had Speech Terapy today and recommends to continue with puree diet, thick fluid. ICU Time: 41 min.
[2017-11-13] MEDS ORDERED: Chlorhexidine Gluconate 1 APPL/PKT TP ONE (22:00)
[2017-11-14] MEDS: Insulin Lispro (humaLOG) 100 Units/ml Inj SC SCH ×4 (01:38→17:33)
[2017-11-14] MEDS: Piperacillin/Tazobact 3.375 GM in Sodium Chloride 0.9% 100 ML IVPB SCH ×3 (04:05→16:18)
[2017-11-14] MEDS: Albuterol-Ipratrop 3 mg / 0.5 (3 ml) UD INH SCH ×6 (04:30→23:37)
[2017-11-14 05:25] LABS: BASO % 0.1 % (0.0-2.0); HEMOGLOBIN 11.5 g/dL (12.0-18.0); LYMPH # 0.6 K/uL (1.0-4.3); LYMPH % 3.7 % (20.0-40.0); MEAN CELL VOLUME 92.1 fl (80.0-94.0); MEAN CORPUSCULAR HGB CONC 31.5 g/dL (33.0-37.0); MEAN PLATELET VOLUME 7.6 fl (7.2-11.7); MONO # 0.9 K/uL (0.0-0.8); MONO % 5.8 % (0.0-10.0); NEUT # 13.4 K/uL (1.8-7.0); NEUT % 90.4 % (50.0-75.0); NRBC % 0.5 % (0.0-0.0); PLATELET COUNT 283 K/uL (130-400); RBC 3.96 Mil/uL (4.40-5.90); WHITE BLOOD COUNT 14.8 K/uL (4.8-10.8)
[2017-11-14] MEDS ORDERED: Sodium Chloride 0.9% 500 ML IV ONE (05:56)
[2017-11-14 06:14] LABS: ALB/GLOB RATIO 0.8 (1.0-2.1); ALBUMIN 3.1 g/dL (3.5-5.0); ALT/SGPT 236 U/L (21-72); AST/SGOT 53 U/L (17-59); BLOOD UREA NITROGEN 56 mg/dl (9-20); CALCIUM 8.8 mg/dL (8.4-10.2); GFR AFRICAN-AMERICAN > 60; GFR NON-AFRICAN AMERICAN 53
[2017-11-14 06:25] LABS: INR 1.4 (0.9-1.2); PARTIAL THROMBOPLASTIN TIME 34.8 Seconds (25.6-37.1); PROTHROMBIN TIME 15.2 Seconds (9.8-13.1)
--- NOTE | 2017-11-14 07:56 | RAD ---
HISTORY: f/u pneumonia/ CHF COMPARISON: Portable chest 11/10/2017. FINDINGS: Right center venous line is unchanged in position. Nasogastric and endotracheal tubes are not identified identified suggesting removal. Clinically correlate. LUNGS: Extensive interstitial pulmonary disease is reiterated including calcified pleural plaques at the right greater than left sides, with underlying limited alveolitis not completely excluded, particularly in the retrocardiac left base and mid right lung. The majority findings may be chronic, however, and further clinical correlation is recommended. PLEURA: No significant pleural effusion identified, no pneumothorax apparent. CARDIOVASCULAR: Prominent cardiac silhouette appears stable. No definite pulmonary vascular derangement appreciable. OSSEOUS STRUCTURES: No significant abnormalities. VISUALIZED UPPER ABDOMEN: Normal. OTHER FINDINGS: None. IMPRESSION: Chronic interstitial pulmonary changes are reiterated with underlying alveolitis remaining difficult to exclude at the left base and mid right lung. Stable cardiomegaly. No definite pulmonary vascular derangement identified. Nasogastric and endotracheal tubes are not identified suggesting removal. Clinically correlate.
--- NOTE | 2017-11-14 08:31 | CP.CCUPN ---
CCU Subjective - Physician Review Subjective (Free Text): Sleeping - easily arousable, on BiPAP now after desaturation overnight, breathing 25 on 17/03, 50% oxygen with SPO2 100% avg TV 300ml. No distress now, IVFs changed to D5W and increased to 125 ml/hr over the next 24H. Other VS and I/Os reviewed. No fever spikes overnight. ROS: No other pertinent negs or positives on 10+ system review. PMSFH: All other Nursing and physician documentation reviewed to date; no new pertinent info noted relevant to current medical problems. CXR: ( my interp): increase in bibasilar interstitial markings ( not confluent) . EXAM- HEENT: no icterus, no gaze preference, pupils equal and reactive, no icterus NECK: No JVD, supple, carotids equal upstroke bilat/no bruits CHEST: decreased BS bases, otherwise clear bilat, no wheezes audible HEART: regular distant, S1S2, no rubs. ABD: soft, no distention, no tympany, no palp tenderness, BS hypoactive EXT: +bilat edema , R worse than L. No peripheral/ digital cyanosis, no calf tenderness or palpable cords, distal pulses intact and symmetrical. NEURO: no gross focal motor deficits SKIN: no rashes, warm and dry. LABS: WBC= 14.8 HGB= 11.5 PLTs= 283K Na= 156 K= 4.0 CL= 109 HCO3=31 BUN/Cr= 56/1.3 BS= 142 AST / ALT decreasing MAJOR PROBLEMS: 1. Acute Hypoxemic Resp failure 2. Bilateral Pneumonia 3. Systolic CHF 4. Hypernatremia / Azotemia 5. Rate Controlled Atrial Fib, on AC. PLAN: 1. ECHO results from 11/09 noted with EF 25%. Cardiology eval pending. 2. Check MvO2. 3. Short term D5W infusion to prevent further Hypernatremia 4. Lasix PRN. 5. Empiric Abx coverage noted since 11/08. 6. Stopped Verapamil and using cardioselective BB for heart rate control. 7. Maintain watch for need for assisted breathing support with MV. CCU Objective - Vital Signs / Intake & Output Vital Signs (Last 4 hours): Vital Signs Pulse Resp BP Pulse Ox 11/14/17 06:00 82 23 100/67 99 Intake and Output (Last 8hrs): Intake & Output 11/13/17 11/14/17 11/14/17 22:59 06:59 14:59 Intake Total 700 250 Output Total 200 0 Balance 500 250 Intake: IV 400 250 Intake, Piggyback 100 Oral 200 Output: Urine 200 0 Urine, Voided 200 0 Other: # Voids Urine, Voided 0 - Physical Exam Head: Positive for: Atraumatic, Normocephalic Pupils: Positive for: PERRL Extroacular Muscles: Positive for: EOMI Conjunctiva: Negative for: Icteric Mouth: Positive for: Moist Mucous Membranes Neck: Positive for: Normal Range of Motion. Negative for: JVD Respiratory/Chest: Positive for: Good Air Exchange, Decreased Breath Sounds Cardiovascular: Positive for: Normal S1, S2, Irregular Rhythm Abdomen: Positive for: Normal Bowel Sounds. Negative for: Tenderness, Distention, Mass/Organomegaly Upper Extremity: Positive for: Normal Inspection Lower Extremity: Positive for: Normal Inspection, NORMAL PULSES. Negative for: CALF TENDERNESS, Cyanosis Neurological: Positive for: Motor Func Grossly Intact, Normal Sensory Function, Other (sedatd on ventilator) Skin: Positive for: Warm, Dry. Negative for: Rashes Psychiatric: Positive for: Alert, Oriented x 3 - Medications Active Medications: Active Medications Generic Name Dose Route Start Last Admin Trade Name Freq PRN Reason Stop Dose Admin Albuterol/Ipratropium 3 ml 11/09/17 00:00 11/14/17 07:55 Duoneb 3 Mg/0.5 Mg (3 Ml) Ud INH 3 ml RQ4 [facility]ENIA Administration Apixaban 2.5 mg 11/11/17 09:00 11/11/17 12:53 Eliquis PO Not Given BID [facility] Protocol Ascorbic Acid 1,000 mg 11/09/17 09:15 11/13/17 08:39 Vitamin C 500 Mg Tab PO 1,000 mg DAILY YESENIA Administration Carvedilol 12.5 mg 11/13/17 09:00 11/13/17 21:03 Coreg PO 12.5 mg Q12 YESENIA Administration Enoxaparin Sodium 60 mg 11/11/17 13:00 11/13/17 21:03 Lovenox SC 60 mg Q12 YESENIA Administration Protocol Piperacillin Sod/Tazobactam 100 mls @ 100 mls/hr 11/08/17 22:00 11/14/17 04: 05 Sod 3.375 gm/ Sodium Chloride IVPB 100 mls/hr Q6 YESENIA Administration Protocol Dextrose 1,000 mls @ 125 mls/hr 11/14/17 06:58 11/14/17 07:43 Dextrose 5% In Water 1000 Ml IV 11/15/17 09:01 125 mls/hr .Q8H YESENIA Administration Insulin Human Lispro 0 units 11/09/17 12:00 11/14/17 06:17 Humalog SC Not Given Q6H YESENIA Protocol Methylprednisolone 40 mg 11/13/17 09:00 11/13/17 21:03 Solu-Medrol IVP 40 mg Q12 [facility]ENIA Administration Multivitamins/Vitamin C 15 ml 11/09/17 09:00 11/13/17 08:39 Multi-Delyn Liquid PO 15 ml DAILY [facility] Administration Pantoprazole Sodium 40 mg 11/13/17 09:00 11/13/17 08:59 Protonix Ec Tab PO Not Given DAILY YESENIA Thiamine HCl 100 mg 11/09/17 09:00 11/13/17 08:39 Vitamin B1 Tab PO 100 mg DAILY YESENIA Administration - Patient Studies Lab Studies: Microbiology Studies 11/08/17 15:18 Blood Culture - Final Blood NO GROWTH AFTER 5 DAYS Gram Stain - Final TEST NOT PERFORMED Lab Studies 11/14/17 11/14/17 11/14/17 Range/Units 05:54 04:20 04:20 WBC (4.8-10.8) K/uL RBC (4.40-5.90) Mil/uL Hgb (12.0-18.0) g/dL Hct (35.0-51.0) % MCV (80.0-94.0) fl MCH (27.0-31.0) pg MCHC (33.0-37.0) g/dL RDW (11.5-14.5) % Plt Count (130-400) K/uL MPV (7.2-11.7) fl Neut % (Auto) (50.0-75.0) % Lymph % (Auto) (20.0-40.0) % [place] % (Auto) (0.0-10.0) % Eos % (Auto) (0.0-4.0) % Baso % (Auto) (0.0-2.0) % Neut # (Auto) (1.8-7.0) K/uL Lymph # (Auto) (1.0-4.3) K/uL [place] # (Auto) (0.0-0.8) K/uL Eos # (Auto) (0.0-0.7) K/uL Baso # (Auto) (0.0-0.2) K/uL PT 15.2 H (9.8-13.1) Seconds INR 1.4 H (0.9-1.2) APTT 34.8 (25.6-37.1) Seconds Sodium (132-148) mmol/l Potassium (3.6-5.0) MMOL/L Chloride (98-107) mmol/L Carbon Dioxide (22-30) mmol/L Anion Gap (10-20) BUN (9-20) mg/dl Creatinine (0.8-1.5) mg/dl Est GFR ( Amer) Est GFR (Non-Af Amer) POC Glucose (mg/dL) 96 (65-110) mg/dL Random Glucose (75-110) mg/dL Serum Osmolality 336 H (272-300) mosm/kg Calcium (8.4-10.2) mg/dL Total Bilirubin (0.2-1.3) mg/dl AST (17-59) U/L ALT (21-72) U/L Alkaline Phosphatase (38-126) U/L Total Protein (6.3-8.2) G/DL Albumin (3.5-5.0) g/dL Globulin (2.2-3.9) gm/dL Albumin/Globulin Ratio (1.0-2.1) 11/14/17 11/14/17 11/14/17 Range/Units 04:20 04:20 00:06 WBC 14.8 H (4.8-10.8) K/uL RBC 3.96 L (4.40-5.90) Mil/uL Hgb 11.5 L (12.0-18.0) g/dL Hct 36.4 (35.0-51.0) % MCV 92.1 (80.0-94.0) fl MCH 29.0 (27.0-31.0) pg MCHC 31.5 L (33.0-37.0) g/dL RDW 16.0 H (11.5-14.5) % Plt Count 283 (130-400) K/uL MPV 7.6 (7.2-11.7) fl Neut % (Auto) 90.4 H (50.0-75.0) % Lymph % (Auto) 3.7 L (20.0-40.0) % [place] % (Auto) 5.8 (0.0-10.0) % Eos % (Auto) 0.0 (0.0-4.0) % Baso % (Auto) 0.1 (0.0-2.0) % Neut # (Auto) 13.4 H (1.8-7.0) K/uL Lymph # (Auto) 0.6 L (1.0-4.3) K/uL [place] # (Auto) 0.9 H (0.0-0.8) K/uL Eos # (Auto) 0.0 (0.0-0.7) K/uL Baso # (Auto) 0.0 (0.0-0.2) K/uL PT (9.8-13.1) Seconds INR (0.9-1.2) APTT (25.6-37.1) Seconds Sodium 156 H (132-148) mmol/l Potassium 4.0 (3.6-5.0) MMOL/L Chloride 109 H (98-107) mmol/L Carbon Dioxide 31 H (22-30) mmol/L Anion Gap 20 (10-20) BUN 56 H (9-20) mg/dl Creatinine 1.3 (0.8-1.5) mg/dl Est GFR ( Amer) > 60 Est GFR (Non-Af Amer) 53 POC Glucose (mg/dL) 219 H (65-110) mg/dL Random Glucose 142 H (75-110) mg/dL Serum Osmolality (272-300) mosm/kg Calcium 8.8 (8.4-10.2) mg/dL Total Bilirubin 0.7 (0.2-1.3) mg/dl AST 53 (17-59) U/L ALT 236 H D (21-72) U/L Alkaline Phosphatase 78 (38-126) U/L Total Protein 7.1 (6.3-8.2) G/DL Albumin 3.1 L (3.5-5.0) g/dL Globulin 4.0 H (2.2-3.9) gm/dL Albumin/Globulin Ratio 0.8 L (1.0-2.1) 11/13/17 11/13/17 11/13/17 Range/Units 21:15 16:58 11:14 WBC (4.8-10.8) K/uL RBC (4.40-5.90) Mil/uL Hgb (12.0-18.0) g/dL Hct (35.0-51.0) % MCV (80.0-94.0) fl MCH (27.0-31.0) pg MCHC (33.0-37.0) g/dL RDW (11.5-14.5) % Plt Count (130-400) K/uL MPV (7.2-11.7) fl Neut % (Auto) (50.0-75.0) % Lymph % (Auto) (20.0-40.0) % [place] % (Auto) (0.0-10.0) % Eos % (Auto) (0.0-4.0) % Baso % (Auto) (0.0-2.0) % Neut # (Auto) (1.8-7.0) K/uL Lymph # (Auto) (1.0-4.3) K/uL [place] # (Auto) (0.0-0.8) K/uL Eos # (Auto) (0.0-0.7) K/uL Baso # (Auto) (0.0-0.2) K/uL PT (9.8-13.1) Seconds INR (0.9-1.2) APTT (25.6-37.1) Seconds Sodium (132-148) mmol/l Potassium (3.6-5.0) MMOL/L Chloride (98-107) mmol/L Carbon Dioxide (22-30) mmol/L Anion Gap (10-20) BUN (9-20) mg/dl Creatinine (0.8-1.5) mg/dl Est GFR ( Amer) Est GFR (Non-Af Amer) POC Glucose (mg/dL) 219 H 219 H 215 H (65-110) mg/dL Random Glucose (75-110) mg/dL Serum Osmolality (272-300) mosm/kg Calcium (8.4-10.2) mg/dL Total Bilirubin (0.2-1.3) mg/dl AST (17-59) U/L ALT (21-72) U/L Alkaline Phosphatase (38-126) U/L Total Protein (6.3-8.2) G/DL Albumin (3.5-5.0) g/dL Globulin (2.2-3.9) gm/dL Albumin/Globulin Ratio (1.0-2.1) Laboratory Results - last 24 hr 11/13/17 11/13/17 11/13/17 11:14 16:58 21:15 WBC RBC Hgb Hct MCV MCH MCHC RDW Plt Count MPV Neut % (Auto) Lymph % (Auto) [place] % (Auto) Eos % (Auto) Baso % (Auto) Neut # (Auto) Lymph # (Auto) [place] # (Auto) Eos # (Auto) Baso # (Auto) PT INR APTT Sodium Potassium Chloride Carbon Dioxide Anion Gap BUN Creatinine Est GFR ( Amer) Est GFR (Non-Af Amer) POC Glucose (mg/dL) 215 H 219 H 219 H Random Glucose Serum Osmolality Calcium Total Bilirubin AST ALT Alkaline Phosphatase Total Protein Albumin Globulin Albumin/Globulin Ratio 11/14/17 11/14/17 11/14/17 00:06 04:20 04:20 WBC 14.8 H RBC 3.96 L Hgb 11.5 L Hct 36.4 MCV 92.1 MCH 29.0 MCHC 31.5 L RDW 16.0 H Plt Count 283 MPV 7.6 Neut % (Auto) 90.4 H Lymph % (Auto) 3.7 L [place] % (Auto) 5.8 Eos % (Auto) 0.0 Baso % (Auto) 0.1 Neut # (Auto) 13.4 H Lymph # (Auto) 0.6 L [place] # (Auto) 0.9 H Eos # (Auto) 0.0 Baso # (Auto) 0.0 PT INR APTT Sodium 156 H Potassium 4.0 Chloride 109 H Carbon Dioxide 31 H Anion Gap 20 BUN 56 H Creatinine 1.3 Est GFR ( Amer) > 60 Est GFR (Non-Af Amer) 53 POC Glucose (mg/dL) 219 H Random Glucose 142 H Serum Osmolality Calcium 8.8 Total Bilirubin 0.7 AST 53 ALT 236 H D Alkaline Phosphatase 78 Total Protein 7.1 Albumin 3.1 L Globulin 4.0 H Albumin/Globulin Ratio 0.8 L 11/14/17 11/14/17 11/14/17 04:20 04:20 05:54 WBC RBC Hgb Hct MCV MCH MCHC RDW Plt Count MPV Neut % (Auto) Lymph % (Auto) [place] % (Auto) Eos % (Auto) Baso % (Auto) Neut # (Auto) Lymph # (Auto) [place] # (Auto) Eos # (Auto) Baso # (Auto) PT 15.2 H INR 1.4 H APTT 34.8 Sodium Potassium Chloride Carbon Dioxide Anion Gap BUN Creatinine Est GFR ( Amer) Est GFR (Non-Af Amer) POC Glucose (mg/dL) 96 Random Glucose Serum Osmolality 336 H Calcium Total Bilirubin AST ALT Alkaline Phosphatase Total Protein Albumin Globulin Albumin/Globulin Ratio Fingerstick Blood Sugar Results: 96 Review of Systems - Review of Systems All systems: reviewed and no additional remarkable complaints except (as above) Critical Care Progress Note - Nutrition Nutrition: Nutrition Category Date Time Status Dysphagia/Modified Consistency Diet [DIET] Diets 11/13/17 Breakfast Active
[2017-11-14] MEDS: MethylPREDNISolone 40 mg Vial IVP SCH ×2 (08:33→22:48)
[2017-11-14] MEDS: Enoxaparin 60 mg Syringe SC SCH (08:33)
[2017-11-14 09:41] LABS: VENOUS BLOOD GAS BASE EXCESS 4.8 mmol/L (0.0-2.0); VENOUS BLOOD GAS PCO2 68 mmHg (40-60); VENOUS BLOOD GAS PO2 45 mm/Hg (30-55)
[2017-11-14] MEDS: Pantoprazole 40 mg EC Tab PO SCH (12:41)
[2017-11-14] MEDS: Multi Vitamins 15 mL UD Oral Solution PO SCH (12:41)
[2017-11-14 13:03] LABS: ANISOCYTOSIS SLIGHT; LYMPHOCYTE 3 % (20-50); MONOCYTE 3 % (0-10); NEUTROPHIL 94 % (42-75); PLATELET ESTIMATE NORMAL (NORMAL); TOTAL CELLS COUNTED 100
[2017-11-14 13:04] LABS: HYPOCHROMIC SLIGHT
[2017-11-14 13:10] LABS: TOXIC GRANULATION PRESENT
--- NOTE | 2017-11-14 16:05 | CP.PCM.PN ---
Subjective - Date & Time of Evaluation Date of Evaluation: 11/14/17 Time of Evaluation: 12:50 - Subjective Subjective: F/U Respiratory Failure Pt with respiratory distress last night was placed in BIPAP mask, FIO2 50%. now , Pt is awake, no SOB, no A/D, breathing better. Objective - Vital Signs/Intake and Output Vital Signs (last 24 hours): Temp Pulse Resp BP Pulse Ox 97.6 F 87 11 L 102/65 100 11/14/17 12:00 11/14/17 14:00 11/14/17 14:00 11/14/17 14:00 11/14/17 14:00 Intake and Output: 11/14/17 11/14/17 06:59 18:59 Intake Total 550 1225 Output Total 0 1600 Balance 550 -375 - Medications Medications: Current Medications Albuterol/Ipratropium (Duoneb 3 Mg/0.5 Mg (3 Ml) Ud) 3 ml INH RQ4 [facility] Last Admin: 11/14/17 15:58 Dose: 3 ml Apixaban (Eliquis) 2.5 mg PO BID YESENIA PRN Reason: Protocol Last Admin: 11/11/17 12:53 Dose: Not Given Ascorbic Acid (Vitamin C 500 Mg Tab) 1,000 mg PO DAILY [facility] Last Admin: 11/14/17 12:42 Dose: 1,000 mg Carvedilol (Coreg) 12.5 mg PO Q12 [facility] Last Admin: 11/14/17 12:40 Dose: 12.5 mg Piperacillin Sod/Tazobactam (Sod 3.375 gm/ Sodium Chloride) 100 mls @ 100 mls/ hr IVPB Q6 YESENIA PRN Reason: Protocol Last Admin: 11/14/17 09:00 Dose: 100 mls/hr Dextrose (Dextrose 5% In Water 1000 Ml) 1,000 mls @ 125 mls/hr IV .Q8H [facility] Stop: 11/15/17 09:01 Last Admin: 11/14/17 07:43 Dose: 125 mls/hr Insulin Human Lispro (Humalog) 0 units SC Q6H YESENIA PRN Reason: Protocol Last Admin: 11/14/17 12:41 Dose: 1 unit Methylprednisolone (Solu-Medrol) 40 mg IVP Q12 [facility] Last Admin: 11/14/17 08:33 Dose: 40 mg Multivitamins/Vitamin C (Multi-Delyn Liquid) 15 ml PO DAILY [facility] Last Admin: 11/14/17 12:41 Dose: 15 ml Pantoprazole Sodium (Protonix Ec Tab) 40 mg PO DAILY [facility] Last Admin: 11/14/17 12:41 Dose: 40 mg Thiamine HCl (Vitamin B1 Tab) 100 mg PO DAILY [facility] Last Admin: 11/14/17 12:41 Dose: 100 mg - Labs Labs: 11/14/17 04:20 11/14/17 04:20 PT 15.2 Seconds (9.8-13.1) H 11/14/17 04:20 INR 1.4 (0.9-1.2) H 11/14/17 04:20 APTT 34.8 Seconds (25.6-37.1) 11/14/17 04:20 - Constitutional Appears: Chronically Ill - Head Exam Head Exam: NORMAL INSPECTION - Eye Exam Eye Exam: PERRL - ENT Exam ENT Exam: Normal Exam - Neck Exam Neck Exam: Normal Inspection - Respiratory Exam Respiratory Exam: Decreased Breath Sounds (b/l), Rhonchi (scattered) - Cardiovascular Exam Cardiovascular Exam: REGULAR RHYTHM - GI/Abdominal Exam GI & Abdominal Exam: Soft, Normal Bowel Sounds - Extremities Exam Extremities Exam: Normal Inspection - Back Exam Back Exam: NORMAL INSPECTION - Neurological Exam Neurological Exam: Awake Additional comments: Follows commands, moves all extremities. - Skin Skin Exam: Warm Assessment and Plan (1) Respiratory failure Status: Acute (2) Atrial fibrillation with RVR Status: Acute (3) COPD exacerbation Status: Acute (4) Pneumonia Status: Acute (5) CHF (congestive heart failure) Status: Acute (6) Sepsis Status: Acute - Assessment and Plan (Free Text) Plan: Continue NC 2 L/M, continue Zosyn, Duoneb, Solumedrol and rest of Tx. ICU Time: 37 min.
[2017-11-15 00:08] LABS: ABG ALLEN TEST YES; ARTERIAL BLOOD GAS HCO3 33.3 mmol/L (21-28); ARTERIAL BLOOD GAS PCO2 65 mm/Hg (35-45); ARTERIAL BLOOD GAS PH 7.38 (7.35-7.45); ARTERIAL BLOOD GAS PO2 220 mm/Hg (80-100); ARTERIAL BLOOD GAS TCO2 40.5 mmol/L (22-28)
[2017-11-15] MEDS: Insulin Lispro (humaLOG) 100 Units/ml Inj SC SCH ×4 (00:25→16:30)
[2017-11-15] MEDS: Piperacillin/Tazobact 3.375 GM in Sodium Chloride 0.9% 100 ML IVPB SCH ×2 (04:00→09:09)
[2017-11-15] MEDS: Albuterol-Ipratrop 3 mg / 0.5 (3 ml) UD INH SCH ×6 (04:40→23:52)
[2017-11-15 06:56] LABS: BLOOD UREA NITROGEN 50 mg/dl (9-20); CALCIUM 7.5 mg/dL (8.4-10.2); GFR AFRICAN-AMERICAN > 60; GFR NON-AFRICAN AMERICAN > 60
[2017-11-15 07:25] LABS: HEMOGLOBIN 9.6 g/dL (12.0-18.0); MEAN CELL VOLUME 91.8 fl (80.0-94.0); MEAN CORPUSCULAR HEMOGLOBIN 29.7 pg (27.0-31.0); MEAN CORPUSCULAR HGB CONC 32.3 g/dL (33.0-37.0); RBC 3.22 Mil/uL (4.40-5.90); RED CELL DISTRIBUTION WIDTH 15.9 % (11.5-14.5); WHITE BLOOD COUNT 10.1 K/uL (4.8-10.8)
[2017-11-15] MEDS: Enoxaparin 60 mg Syringe SC SCH ×2 (09:07→20:19)
[2017-11-15] MEDS: Multi Vitamins 15 mL UD Oral Solution PO SCH (09:07)
[2017-11-15] MEDS: MethylPREDNISolone 40 mg Vial IVP SCH ×2 (09:08→20:19)
[2017-11-15] MEDS: Pantoprazole 40 mg EC Tab PO SCH (09:08)
--- NOTE | 2017-11-15 10:06 | CP.CCUPN ---
CCU Subjective - Physician Review Subjective (Free Text): Appears sleeping on BiPAP, arousable, looks tired, but no distress, SPO2 100% om 50% oxygen, generating approx 450-490 ml TV. He does desaturate on nasal cannula and with it, becomes bradycardic. He denies any chest discomfort. Other Vitals and I/Os reviewed. No fever spikes overnight. ROS: No other pertinent negs or positives on 10+ system review, intubated. PMSFH: All other historical Nursing and physician documentation reviewed to date; no new pertinent info noted relevant to current medical problems. EXAM- HEENT: no icterus, no gaze preference, pupils equal and reactive, no icterus. NECK: No JVD, supple, carotids equal upstroke bilat/no bruits CHEST: decreased BS bases, otherwise clear bilat, no wheezes audible HEART: irregular, distant, S1S2, no rubs or murmurs ABD: soft, no distention, no tympany, no palp tenderness, BS hypoactive. EXT: Bilat edema. No peripheral/ digital cyanosis, no calf tenderness or palpable cords, distal pulses intact and symmetrical. NEURO: no gross focal motor deficits. SKIN: no rashes, warm and dry. CXR: (my interp)- worsening multifocal bilateral basiler infiltrates. MAJOR PROBLEMS: 1. Acute Hypoxemic Resp failure 2. Bilateral Pneumonia 3. Systolic CHF 4. s/p Hypernatremia / Azotemia 5. Rate Controlled Atrial Fib, on AC. PLAN: 1. ECHO results from 11/09 noted with EF 25%. Cardiology eval pending. 2. Resolved Hypernatremia, will stop further IVFs for now. 3. Lasix PRN. 4. Empiric Abx coverage noted since 11/08. 5. Stopped Verapamil and using cardioselective BB for heart rate control. 6. Maintain watch for need for assisted breathing support with MV. CCU Objective - Vital Signs / Intake & Output Vital Signs (Last 4 hours): Vital Signs Temp Pulse Resp BP Pulse Ox 11/15/17 09:06 70 113/67 11/15/17 07:56 97.8 F 63 20 105/64 100 11/15/17 07:25 68 Intake and Output (Last 8hrs): Intake & Output 11/14/17 11/15/17 11/15/17 22:59 06:59 14:59 Intake Total 1000 500 Output Total 800 200 Balance 200 300 Intake: IV 750 500 Intake, Piggyback 150 Oral 100 Output: Urine 800 200 Urethral (Weaver) 800 200 - Physical Exam Head: Positive for: Atraumatic, Normocephalic Pupils: Positive for: PERRL Extroacular Muscles: Positive for: EOMI Conjunctiva: Negative for: Icteric Mouth: Positive for: Moist Mucous Membranes Neck: Positive for: Normal Range of Motion. Negative for: JVD Respiratory/Chest: Positive for: Good Air Exchange, Decreased Breath Sounds Cardiovascular: Positive for: Normal S1, S2, Irregular Rhythm Abdomen: Positive for: Normal Bowel Sounds. Negative for: Tenderness, Distention, Mass/Organomegaly Upper Extremity: Positive for: Normal Inspection Lower Extremity: Positive for: Normal Inspection, NORMAL PULSES. Negative for: CALF TENDERNESS, Cyanosis Neurological: Positive for: Motor Func Grossly Intact, Normal Sensory Function, Other (sedatd on ventilator) Skin: Positive for: Warm, Dry. Negative for: Rashes Psychiatric: Positive for: Alert, Oriented x 3 - Medications Active Medications: Active Medications Generic Name Dose Route Start Last Admin Trade Name Freq PRN Reason Stop Dose Admin Albuterol/Ipratropium 3 ml 11/09/17 00:00 11/15/17 07:25 Duoneb 3 Mg/0.5 Mg (3 Ml) Ud INH 3 ml RQ4 YESENIA Administration Apixaban 2.5 mg 11/11/17 09:00 11/11/17 12:53 Eliquis PO Not Given BID YESENIA Protocol Ascorbic Acid 1,000 mg 11/09/17 09:15 11/15/17 09:08 Vitamin C 500 Mg Tab PO 1,000 mg DAILY YESENIA Administration Carvedilol 12.5 mg 11/13/17 09:00 11/15/17 09:06 Coreg PO 12.5 mg Q12 YESENIA Administration Enoxaparin Sodium 60 mg 11/15/17 09:00 11/15/17 09:07 Lovenox SC 60 mg Q12 YESENIA Administration Protocol Piperacillin Sod/Tazobactam 100 mls @ 100 mls/hr 11/15/17 04:00 11/15/17 09: 09 Sod 3.375 gm/ Sodium Chloride IVPB 100 mls/hr Q6 YESENIA Administration Protocol Insulin Human Lispro 0 units 11/09/17 12:00 11/15/17 07:02 Humalog SC 1 unit Q6H YESENIA Administration Protocol Methylprednisolone 40 mg 11/13/17 09:00 11/15/17 09:08 Solu-Medrol IVP 40 mg Q12 YESENIA Administration Multivitamins/Vitamin C 15 ml 11/09/17 09:00 11/15/17 09:07 Multi-Delyn Liquid PO 15 ml DAILY YESENIA Administration Pantoprazole Sodium 40 mg 11/13/17 09:00 11/15/17 09:08 Protonix Ec Tab PO 40 mg DAILY YESENIA Administration Thiamine HCl 100 mg 11/09/17 09:00 11/15/17 09:08 Vitamin B1 Tab PO 100 mg DAILY YESENIA Administration - Patient Studies Lab Studies: Lab Studies 11/15/17 11/15/17 11/15/17 Range/Units 07:46 06:38 06:00 WBC (4.8-10.8) K/uL RBC (4.40-5.90) Mil/uL Hgb (12.0-18.0) g/dL Hct (35.0-51.0) % MCV (80.0-94.0) fl MCH (27.0-31.0) pg MCHC (33.0-37.0) g/dL RDW (11.5-14.5) % Plt Count (130-400) K/uL Neutrophils % (Manual) (42-75) % Lymphocytes % (Manual) (20-50) % Monocytes % (Manual) (0-10) % Toxic Granulation Platelet Estimate (NORMAL) Hypochromasia (manual) Anisocytosis (manual) pCO2 (35-45) mm/Hg pO2 (80-100) mm/Hg HCO3 (21-28) mmol/L ABG pH (7.35-7.45) ABG Total CO2 (22-28) mmol/L ABG O2 Saturation (95-98) % ABG Base Excess (-2.0-3.0) mmol/L Garrick Test ABG Potassium (3.6-5.2) mmol/L A-a O2 Difference mm/Hg Sodium 145 (132-148) mmol/L Chloride 99 (98-107) mmol/L Glucose (75-110) mg/dL Lactate (0.7-2.1) mmol/L Vent Mode Mechanical Rate FiO2 % Inspiratory BiPAP Expiratory BiPAP Potassium 3.5 L (3.6-5.0) MMOL/L Carbon Dioxide 39 H (22-30) mmol/L Anion Gap 11 (10-20) BUN 50 H (9-20) mg/dl Creatinine 1.1 (0.8-1.5) mg/dl Est GFR ( Amer) > 60 Est GFR (Non-Af Amer) > 60 POC Glucose (mg/dL) 172 H 168 H (65-110) mg/dL Random Glucose 172 H (75-110) mg/dL Calcium 7.5 L (8.4-10.2) mg/dL Arterial Blood Potassium (3.6-5.2) mmol/L 11/15/17 11/14/17 11/14/17 Range/Units 06:00 23:52 21:29 WBC 10.1 (4.8-10.8) K/uL RBC 3.22 L (4.40-5.90) Mil/uL Hgb 9.6 L (12.0-18.0) g/dL Hct 29.6 L (35.0-51.0) % MCV 91.8 (80.0-94.0) fl MCH 29.7 (27.0-31.0) pg MCHC 32.3 L (33.0-37.0) g/dL RDW 15.9 H (11.5-14.5) % Plt Count 211 (130-400) K/uL Neutrophils % (Manual) (42-75) % Lymphocytes % (Manual) (20-50) % Monocytes % (Manual) (0-10) % Toxic Granulation Platelet Estimate (NORMAL) Hypochromasia (manual) Anisocytosis (manual) pCO2 (35-45) mm/Hg pO2 (80-100) mm/Hg HCO3 (21-28) mmol/L ABG pH (7.35-7.45) ABG Total CO2 (22-28) mmol/L ABG O2 Saturation (95-98) % ABG Base Excess (-2.0-3.0) mmol/L Garrick Test ABG Potassium (3.6-5.2) mmol/L A-a O2 Difference mm/Hg Sodium (132-148) mmol/L Chloride (98-107) mmol/L Glucose (75-110) mg/dL Lactate (0.7-2.1) mmol/L Vent Mode Mechanical Rate FiO2 % Inspiratory BiPAP Expiratory BiPAP Potassium (3.6-5.0) MMOL/L Carbon Dioxide (22-30) mmol/L Anion Gap (10-20) BUN (9-20) mg/dl Creatinine (0.8-1.5) mg/dl Est GFR ( Amer) Est GFR (Non-Af Amer) POC Glucose (mg/dL) 185 H 205 H (65-110) mg/dL Random Glucose (75-110) mg/dL Calcium (8.4-10.2) mg/dL Arterial Blood Potassium (3.6-5.2) mmol/L 11/14/17 11/14/17 11/14/17 Range/Units 16:42 11:27 04:20 WBC (4.8-10.8) K/uL RBC (4.40-5.90) Mil/uL Hgb (12.0-18.0) g/dL Hct (35.0-51.0) % MCV (80.0-94.0) fl MCH (27.0-31.0) pg MCHC (33.0-37.0) g/dL RDW (11.5-14.5) % Plt Count (130-400) K/uL Neutrophils % (Manual) 94 H (42-75) % Lymphocytes % (Manual) 3 L (20-50) % Monocytes % (Manual) 3 (0-10) % Toxic Granulation Present Platelet Estimate Normal (NORMAL) Hypochromasia (manual) Slight Anisocytosis (manual) Slight pCO2 (35-45) mm/Hg pO2 (80-100) mm/Hg HCO3 (21-28) mmol/L ABG pH (7.35-7.45) ABG Total CO2 (22-28) mmol/L ABG O2 Saturation (95-98) % ABG Base Excess (-2.0-3.0) mmol/L Garrick Test ABG Potassium (3.6-5.2) mmol/L A-a O2 Difference mm/Hg Sodium (132-148) mmol/L Chloride (98-107) mmol/L Glucose (75-110) mg/dL Lactate (0.7-2.1) mmol/L Vent Mode Mechanical Rate FiO2 % Inspiratory BiPAP Expiratory BiPAP Potassium (3.6-5.0) MMOL/L Carbon Dioxide (22-30) mmol/L Anion Gap (10-20) BUN (9-20) mg/dl Creatinine (0.8-1.5) mg/dl Est GFR ( Amer) Est GFR (Non-Af Amer) POC Glucose (mg/dL) 254 H 161 H (65-110) mg/dL Random Glucose (75-110) mg/dL Calcium (8.4-10.2) mg/dL Arterial Blood Potassium (3.6-5.2) mmol/L 11/14/17 Range/Units 00:02 WBC (4.8-10.8) K/uL RBC (4.40-5.90) Mil/uL Hgb (12.0-18.0) g/dL Hct (35.0-51.0) % MCV (80.0-94.0) fl MCH (27.0-31.0) pg MCHC (33.0-37.0) g/dL RDW (11.5-14.5) % Plt Count (130-400) K/uL Neutrophils % (Manual) (42-75) % Lymphocytes % (Manual) (20-50) % Monocytes % (Manual) (0-10) % Toxic Granulation Platelet Estimate (NORMAL) Hypochromasia (manual) Anisocytosis (manual) pCO2 65 H (35-45) mm/Hg pO2 220 H (80-100) mm/Hg HCO3 33.3 H (21-28) mmol/L ABG pH 7.38 (7.35-7.45) ABG Total CO2 40.5 H (22-28) mmol/L ABG O2 Saturation 100.0 H (95-98) % ABG Base Excess 10.7 H (-2.0-3.0) mmol/L Garrick Test Yes ABG Potassium 3.5 L (3.6-5.2) mmol/L A-a O2 Difference 55.0 mm/Hg Sodium 144.0 (132-148) mmol/L Chloride 109.0 H (98-107) mmol/L Glucose 196 H (75-110) mg/dL Lactate 1.1 (0.7-2.1) mmol/L Vent Mode Bipap Mechanical Rate 15 FiO2 50.0 % Inspiratory BiPAP 16 Expiratory BiPAP 7 Potassium (3.6-5.0) MMOL/L Carbon Dioxide (22-30) mmol/L Anion Gap (10-20) BUN (9-20) mg/dl Creatinine (0.8-1.5) mg/dl Est GFR ( Amer) Est GFR (Non-Af Amer) POC Glucose (mg/dL) (65-110) mg/dL Random Glucose (75-110) mg/dL Calcium (8.4-10.2) mg/dL Arterial Blood Potassium 3.5 L (3.6-5.2) mmol/L Laboratory Results - last 24 hr 11/14/17 11/14/17 11/14/17 00:02 04:20 11:27 WBC RBC Hgb Hct MCV MCH MCHC RDW Plt Count Neutrophils % (Manual) 94 H Lymphocytes % (Manual) 3 L Monocytes % (Manual) 3 Toxic Granulation Present Platelet Estimate Normal Hypochromasia (manual) Slight Anisocytosis (manual) Slight pCO2 65 H pO2 220 H HCO3 33.3 H ABG pH 7.38 ABG Total CO2 40.5 H ABG O2 Saturation 100.0 H ABG Base Excess 10.7 H Garrick Test Yes ABG Potassium 3.5 L A-a O2 Difference 55.0 Sodium 144.0 Chloride 109.0 H Glucose 196 H Lactate 1.1 Vent Mode Bipap Mechanical Rate 15 FiO2 50.0 Inspiratory BiPAP 16 Expiratory BiPAP 7 Potassium Carbon Dioxide Anion Gap BUN Creatinine Est GFR ( Amer) Est GFR (Non-Af Amer) POC Glucose (mg/dL) 161 H Random Glucose Calcium Arterial Blood Potassium 3.5 L 11/14/17 11/14/17 11/14/17 16:42 21:29 23:52 WBC RBC Hgb Hct MCV MCH MCHC RDW Plt Count Neutrophils % (Manual) Lymphocytes % (Manual) Monocytes % (Manual) Toxic Granulation Platelet Estimate Hypochromasia (manual) Anisocytosis (manual) pCO2 pO2 HCO3 ABG pH ABG Total CO2 ABG O2 Saturation ABG Base Excess Garrick Test ABG Potassium A-a O2 Difference Sodium Chloride Glucose Lactate Vent Mode Mechanical Rate FiO2 Inspiratory BiPAP Expiratory BiPAP Potassium Carbon Dioxide Anion Gap BUN Creatinine Est GFR ( Amer) Est GFR (Non-Af Amer) POC Glucose (mg/dL) 254 H 205 H 185 H Random Glucose Calcium Arterial Blood Potassium 11/15/17 11/15/17 11/15/17 06:00 06:00 06:38 WBC 10.1 RBC 3.22 L Hgb 9.6 L Hct 29.6 L MCV 91.8 MCH 29.7 MCHC 32.3 L RDW 15.9 H Plt Count 211 Neutrophils % (Manual) Lymphocytes % (Manual) Monocytes % (Manual) Toxic Granulation Platelet Estimate Hypochromasia (manual) Anisocytosis (manual) pCO2 pO2 HCO3 ABG pH ABG Total CO2 ABG O2 Saturation ABG Base Excess Garrick Test ABG Potassium A-a O2 Difference Sodium 145 Chloride 99 Glucose Lactate Vent Mode Mechanical Rate FiO2 Inspiratory BiPAP Expiratory BiPAP Potassium 3.5 L Carbon Dioxide 39 H Anion Gap 11 BUN 50 H Creatinine 1.1 Est GFR ( Amer) > 60 Est GFR (Non-Af Amer) > 60 POC Glucose (mg/dL) 168 H Random Glucose 172 H Calcium 7.5 L Arterial Blood Potassium 11/15/17 07:46 WBC RBC Hgb Hct MCV MCH MCHC RDW Plt Count Neutrophils % (Manual) Lymphocytes % (Manual) Monocytes % (Manual) Toxic Granulation Platelet Estimate Hypochromasia (manual) Anisocytosis (manual) pCO2 pO2 HCO3 ABG pH ABG Total CO2 ABG O2 Saturation ABG Base Excess Garrick Test ABG Potassium A-a O2 Difference Sodium Chloride Glucose Lactate Vent Mode Mechanical Rate FiO2 Inspiratory BiPAP Expiratory BiPAP Potassium Carbon Dioxide Anion Gap BUN Creatinine Est GFR ( Amer) Est GFR (Non-Af Amer) POC Glucose (mg/dL) 172 H Random Glucose Calcium Arterial Blood Potassium Fingerstick Blood Sugar Results: 168 Review of Systems - Review of Systems All systems: reviewed and no additional remarkable complaints except (as above) Critical Care Progress Note - Nutrition Nutrition: Nutrition Category Date Time Status Dysphagia/Modified Consistency Diet [DIET] Diets 11/13/17 Breakfast Active
--- NOTE | 2017-11-15 15:25 | CP.PCM.PN ---
Subjective - Date & Time of Evaluation Date of Evaluation: 11/15/17 Time of Evaluation: 15:00 - Subjective Subjective: F/U Respiratory Failure. awake , not eating well , Patient does not like puree diet with thicken fluids Objective - Vital Signs/Intake and Output Vital Signs (last 24 hours): Temp Pulse Resp BP Pulse Ox 98.3 F 68 23 111/64 100 11/15/17 12:00 11/15/17 12:00 11/15/17 12:00 11/15/17 12:00 11/15/17 12:00 Intake and Output: 11/15/17 11/15/17 06:59 18:59 Intake Total 900 Output Total 500 Balance 400 - Medications Medications: Current Medications Albuterol/Ipratropium (Duoneb 3 Mg/0.5 Mg (3 Ml) Ud) 3 ml INH RQ4 [facility] Last Admin: 11/15/17 15:14 Dose: 3 ml Apixaban (Eliquis) 2.5 mg PO BID YESENIA PRN Reason: Protocol Last Admin: 11/11/17 12:53 Dose: Not Given Ascorbic Acid (Vitamin C 500 Mg Tab) 1,000 mg PO DAILY [facility] Last Admin: 11/15/17 09:08 Dose: 1,000 mg Carvedilol (Coreg) 12.5 mg PO Q12 YESENIA Last Admin: 11/15/17 09:06 Dose: 12.5 mg Enoxaparin Sodium (Lovenox) 60 mg SC Q12 YESENIA PRN Reason: Protocol Last Admin: 11/15/17 09:07 Dose: 60 mg Ciprofloxacin (Cipro 400mg/200ml Dsw) 400 mg in 200 mls @ 200 mls/hr IVPB Q12 YESENIA PRN Reason: Protocol Insulin Human Lispro (Humalog) 0 units SC Q6H YESENAI PRN Reason: Protocol Last Admin: 11/15/17 07:02 Dose: 1 unit Methylprednisolone (Solu-Medrol) 40 mg IVP Q12 YESENIA Last Admin: 11/15/17 09:08 Dose: 40 mg Multivitamins/Vitamin C (Multi-Delyn Liquid) 15 ml PO DAILY YESENIA Last Admin: 11/15/17 09:07 Dose: 15 ml Pantoprazole Sodium (Protonix Ec Tab) 40 mg PO DAILY YESENIA Last Admin: 11/15/17 09:08 Dose: 40 mg Thiamine HCl (Vitamin B1 Tab) 100 mg PO DAILY YESENIA Last Admin: 11/15/17 09:08 Dose: 100 mg - Labs Labs: 11/15/17 06:00 11/15/17 06:00 PT 15.2 Seconds (9.8-13.1) H 11/14/17 04:20 INR 1.4 (0.9-1.2) H 11/14/17 04:20 APTT 34.8 Seconds (25.6-37.1) 11/14/17 04:20 - Constitutional Appears: Chronically Ill - Head Exam Head Exam: NORMAL INSPECTION - Eye Exam Eye Exam: PERRL - ENT Exam ENT Exam: Normal Exam - Neck Exam Neck Exam: Normal Inspection - Respiratory Exam Respiratory Exam: Decreased Breath Sounds (at bases), Rhonchi (scattered) - Cardiovascular Exam Cardiovascular Exam: Irregular Rhythm - GI/Abdominal Exam GI & Abdominal Exam: Soft, Normal Bowel Sounds - Extremities Exam Extremities Exam: Normal Inspection - Back Exam Back Exam: NORMAL INSPECTION - Neurological Exam Neurological Exam: Awake Additional comments: alert , Follows commands, moves well all extremities - Psychiatric Exam Psychiatric exam: Anxious - Skin Skin Exam: Warm Assessment and Plan (1) Respiratory failure Status: Acute (2) Atrial fibrillation with RVR Status: Acute (3) COPD exacerbation Status: Acute (4) Staphylococcal pneumonia Status: Acute (5) CHF (congestive heart failure) Status: Acute (6) Sepsis Status: Acute - Assessment and Plan (Free Text) Plan: continue Cipro , DuoNeb, Lasix Diamox , begin Eliquis and rest of treatment ICU Time: 39 min.
--- NOTE | 2017-11-15 17:25 | CP.PCM.CON ---
History of Present Illness - History of Present Illness History of Present Illness: 82-year-old male who presented with complains of chest congestion cough and shortness of breath for 2 weeks prior to presentation patient initially was treating himself with naturopathic medicine with partial improvement with worsening progressive shortness of breath patient was subsequently seen in the emergency room at [facility] with respiratory failure and was noted to be in A. fib with rapid ventricular response patient was subsequently started on Cardizem drip with digoxin and BiPAP was initiated. 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 Review of Systems - Review of Systems Systems not reviewed;Unavailable: Acuity of Condition All systems: reviewed and no additional remarkable complaints except - Constitutional Constitutional: As Per HPI - EENT Eyes: As Per HPI Ears: As Per HPI Nose/Mouth/Throat: As Per HPI - Cardiovascular Cardiovascular: As Per HPI - Respiratory Respiratory: As Per HPI - Gastrointestinal Gastrointestinal: As Per HPI - Genitourinary Genitourinary: As Per HPI - Reproductive: Male Reproductive:Male: As Per HPI - Musculoskeletal Musculoskeletal: As Per HPI - Integumentary Integumentary: As Per HPI - Neurological Neurological: As Per HPI - Psychiatric Psychiatric: As Per HPI - Endocrine Endocrine: As Per HPI Past Patient History - Past Medical History & Family History Past Medical History?: No - Past Social History Smoking Status: Former Smoker Home Situation {Lives}: With Family - CARDIAC Hx Cardiac Disorders: No - PULMONARY Hx Chronic Obstructive Pulmonary Disease (COPD): Yes - NEUROLOGICAL Hx Neurological Disorder: No - HEENT Hx HEENT Problems: No - RENAL Hx Chronic Kidney Disease: No - ENDOCRINE/METABOLIC Other/Comment: as per family ? thyroid problem - HEMATOLOGICAL/ONCOLOGICAL Hx Blood Disorders: No - INTEGUMENTARY Hx Dermatological Problems: No - MUSCULOSKELETAL/RHEUMATOLOGICAL Hx Arthritis: Yes - GASTROINTESTINAL Hx Gastrointestinal Disorders: No - GENITOURINARY/GYNECOLOGICAL Hx Genitourinary Disorders: No - PSYCHIATRIC Hx Substance Use: No - SURGICAL HISTORY Hx Surgeries: Yes Other/Comment: hemorrhoid sx - ANESTHESIA Hx Anesthesia: Yes Hx Anesthesia Reactions: No Meds Allergies/Adverse Reactions: Allergies Allergy/AdvReac Type Severity Reaction Status Date / Time No Known Allergies Allergy Verified 11/08/17 11:01 - Medications Medications: Current Medications Albuterol/Ipratropium (Duoneb 3 Mg/0.5 Mg (3 Ml) Ud) 3 ml INH RQ4 [facility] Last Admin: 11/15/17 15:14 Dose: 3 ml Apixaban (Eliquis) 2.5 mg PO BID [facility] PRN Reason: Protocol Last Admin: 11/11/17 12:53 Dose: Not Given Ascorbic Acid (Vitamin C 500 Mg Tab) 1,000 mg PO DAILY [facility] Last Admin: 11/15/17 09:08 Dose: 1,000 mg Carvedilol (Coreg) 12.5 mg PO Q12 [facility] Last Admin: 11/15/17 09:06 Dose: 12.5 mg Enoxaparin Sodium (Lovenox) 60 mg SC Q12 [facility]EN[facility] PRN Reason: Protocol Last Admin: 11/15/17 09:07 Dose: 60 mg Ciprofloxacin (Cipro 400mg/200ml Dsw) 400 mg in 200 mls @ 200 mls/hr IVPB Q12 [facility]EN[facility] PRN Reason: Protocol Insulin Human Lispro (Humalog) 0 units SC Q6H [facility]ENIA PRN Reason: Protocol Last Admin: 11/15/17 07:02 Dose: 1 unit Methylprednisolone (Solu-Medrol) 40 mg IVP Q12 [facility] Last Admin: 11/15/17 09:08 Dose: 40 mg Multivitamins/Vitamin C (Multi-Delyn Liquid) 15 ml PO DAILY [facility] Last Admin: 11/15/17 09:07 Dose: 15 ml Pantoprazole Sodium (Protonix Ec Tab) 40 mg PO DAILY [facility] Last Admin: 11/15/17 09:08 Dose: 40 mg Thiamine HCl (Vitamin B1 Tab) 100 mg PO DAILY [facility] Last Admin: 11/15/17 09:08 Dose: 100 mg Physical Exam - Constitutional Appears: Well - Head Exam Head Exam: ATRAUMATIC, NORMAL INSPECTION, NORMOCEPHALIC - Eye Exam Eye Exam: EOMI, Normal appearance, PERRL Pupil Exam: NORMAL ACCOMODATION, PERRL - ENT Exam ENT Exam: Mucous Membranes Moist, Normal Exam - Neck Exam Neck exam: Positive for: Normal Inspection - Respiratory Exam Respiratory Exam: Clear to Auscultation Bilateral, NORMAL BREATHING PATTERN - Cardiovascular Exam Cardiovascular Exam: Irregular Rhythm, +S1, +S2, Systolic Murmur - GI/Abdominal Exam GI & Abdominal Exam: Normal Bowel Sounds, Soft. absent: Tenderness - Extremities Exam Extremities exam: Positive for: normal inspection - Back Exam Back exam: NORMAL INSPECTION - Neurological Exam Neurological exam: Alert, CN II-XII Intact, Normal Gait, Oriented x3, Reflexes Normal - Psychiatric Exam Psychiatric exam: Normal Affect, Normal Mood - Skin Skin Exam: Dry, Intact, Normal Color, Warm Results - Vital Signs Recent Vital Signs: Last Vital Signs Temp 97.5 F L 11/15/17 16:00 Pulse 76 11/15/17 16:00 Resp 14 11/15/17 16:00 BP 113/76 11/15/17 16:00 Pulse Ox 100 11/15/17 16:00 - Labs Result Diagrams: 11/15/17 06:00 11/15/17 06:00 Labs: Laboratory Results - last 24 hr 11/14/17 11/14/17 11/14/17 00:02 21:29 23:52 WBC RBC Hgb Hct MCV MCH MCHC RDW Plt Count pCO2 65 H pO2 220 H HCO3 33.3 H ABG pH 7.38 ABG Total CO2 40.5 H ABG O2 Saturation 100.0 H ABG Base Excess 10.7 H Garrick Test Yes ABG Potassium 3.5 L A-a O2 Difference 55.0 Sodium 144.0 Chloride 109.0 H Glucose 196 H Lactate 1.1 Vent Mode Bipap Mechanical Rate 15 FiO2 50.0 Inspiratory BiPAP 16 Expiratory BiPAP 7 Potassium Carbon Dioxide Anion Gap BUN Creatinine Est GFR ( Amer) Est GFR (Non-Af Amer) POC Glucose (mg/dL) 205 H 185 H Random Glucose Calcium Arterial Blood Potassium 3.5 L 11/15/17 11/15/17 11/15/17 06:00 06:00 06:38 WBC 10.1 RBC 3.22 L Hgb 9.6 L Hct 29.6 L MCV 91.8 MCH 29.7 MCHC 32.3 L RDW 15.9 H Plt Count 211 pCO2 pO2 HCO3 ABG pH ABG Total CO2 ABG O2 Saturation ABG Base Excess Garrick Test ABG Potassium A-a O2 Difference Sodium 145 Chloride 99 Glucose Lactate Vent Mode Mechanical Rate FiO2 Inspiratory BiPAP Expiratory BiPAP Potassium 3.5 L Carbon Dioxide 39 H Anion Gap 11 BUN 50 H Creatinine 1.1 Est GFR ( Amer) > 60 Est GFR (Non-Af Amer) > 60 POC Glucose (mg/dL) 168 H Random Glucose 172 H Calcium 7.5 L Arterial Blood Potassium 11/15/17 11/15/17 11/15/17 07:46 11:07 16:43 WBC RBC Hgb Hct MCV MCH MCHC RDW Plt Count pCO2 pO2 HCO3 ABG pH ABG Total CO2 ABG O2 Saturation ABG Base Excess Garrick Test ABG Potassium A-a O2 Difference Sodium Chloride Glucose Lactate Vent Mode Mechanical Rate FiO2 Inspiratory BiPAP Expiratory BiPAP Potassium Carbon Dioxide Anion Gap BUN Creatinine Est GFR ( Amer) Est GFR (Non-Af Amer) POC Glucose (mg/dL) 172 H 135 H 119 H Random Glucose Calcium Arterial Blood Potassium Assessment & Plan (1) Atrial fibrillation with RVR Assessment and Plan: cont coreg and eliquis Status: Acute Priority: High (2) CHF (congestive heart failure) Assessment and Plan: add low dose acei ischemic evaluation on saturday Status: Acute (3) COPD exacerbation Status: Acute Priority: High (4) Pneumonia Status: Acute Priority: High (5) Respiratory failure Status: Acute Priority: High (6) Sepsis Status: Acute (7) Severe sepsis Status: Acute
[2017-11-15] MEDS: Ciprofloxacin 400mg/200ml D5W 400 MG/200 ML BAG IVPB SCH (20:17)
[2017-11-16] MEDS: Albuterol-Ipratrop 3 mg / 0.5 (3 ml) UD INH SCH ×6 (04:42→23:36)
[2017-11-16] MEDS: Insulin Lispro (humaLOG) 100 Units/ml Inj SC SCH ×4 (05:09→17:59)
[2017-11-16 05:29] LABS: ABG ALLEN TEST YES; ARTERIAL BLOOD GAS HCO3 36.7 mmol/L (21-28); ARTERIAL BLOOD GAS O2 CAPACITY 15.5 mL/dL (16-24); ARTERIAL BLOOD GAS O2 CONTENT 15.4 ML/dL (15-23); ARTERIAL BLOOD GAS O2 SAT 99.4 % (95-98); ARTERIAL BLOOD GAS PCO2 69 mm/Hg (35-45); ARTERIAL BLOOD GAS PO2 222 mm/Hg (80-100); ARTERIAL BLOOD GAS TCO2 44.8 mmol/L (22-28)
[2017-11-16 05:39] LABS: HEMOGLOBIN 10.8 g/dL (12.0-18.0); MEAN CELL VOLUME 91.6 fl (80.0-94.0); MEAN CORPUSCULAR HEMOGLOBIN 29.4 pg (27.0-31.0); RBC 3.67 Mil/uL (4.40-5.90); RED CELL DISTRIBUTION WIDTH 15.3 % (11.5-14.5); WHITE BLOOD COUNT 9.2 K/uL (4.8-10.8)
[2017-11-16 05:59] LABS: BLOOD UREA NITROGEN 38 mg/dl (9-20); GFR AFRICAN-AMERICAN > 60; GFR NON-AFRICAN AMERICAN > 60
[2017-11-16 06:00] LABS: ALB/GLOB RATIO 0.7 (1.0-2.1); ALBUMIN 2.4 g/dL (3.5-5.0); AST/SGOT 32 U/L (17-59); CALCIUM 7.9 mg/dL (8.4-10.2)
[2017-11-16 06:01] LABS: ALT/SGPT 129 U/L (21-72)
[2017-11-16] MEDS: Ciprofloxacin 400mg/200ml D5W 400 MG/200 ML BAG IVPB SCH ×2 (09:06→20:15)
[2017-11-16] MEDS: Enoxaparin 60 mg Syringe SC SCH (09:08)
[2017-11-16] MEDS: MethylPREDNISolone 40 mg Vial IVP SCH ×2 (09:08→20:16)
[2017-11-16] MEDS: Pantoprazole 40 mg EC Tab PO SCH (09:08)
[2017-11-16] MEDS: Multi Vitamins 15 mL UD Oral Solution PO SCH (09:10)
--- NOTE | 2017-11-16 09:53 | CP.CCUPN ---
CCU Subjective - Physician Review Events Since Last Encounter (Free Text): 11/16/17 09:51 alert and awake, in no distress, CCU Objective - Vital Signs / Intake & Output Vital Signs (Last 4 hours): Vital Signs Temp Pulse Resp BP Pulse Ox 11/16/17 09:08 84 117/78 11/16/17 08:00 98.7 F 83 19 113/74 100 11/16/17 06:00 77 20 121/83 100 Intake and Output (Last 8hrs): Intake & Output 11/15/17 11/16/17 11/16/17 22:59 06:59 14:59 Intake Total 325 12 Output Total 500 Balance 325 -488 Weight 141 lb 12.8 oz Intake: IV 125 12 Intake, Piggyback 200 Output: Urine 500 Condom 500 - Physical Exam Narrative Physical Exam (Free Text): 11/16/17 09:51 P/E Neck: No JVD Lungs: rt basal crackles Heart: no gallop Abdomen: soft Ext: +1 edema Head: Positive for: Atraumatic, Normocephalic Pupils: Positive for: PERRL Extroacular Muscles: Positive for: EOMI Conjunctiva: Negative for: Icteric Mouth: Positive for: Moist Mucous Membranes Neck: Positive for: Normal Range of Motion. Negative for: JVD Respiratory/Chest: Positive for: Good Air Exchange, Decreased Breath Sounds Cardiovascular: Positive for: Normal S1, S2, Irregular Rhythm Abdomen: Positive for: Normal Bowel Sounds. Negative for: Tenderness, Distention, Mass/Organomegaly Upper Extremity: Positive for: Normal Inspection Lower Extremity: Positive for: Normal Inspection, NORMAL PULSES. Negative for: CALF TENDERNESS, Cyanosis Neurological: Positive for: Motor Func Grossly Intact, Normal Sensory Function, Other (sedatd on ventilator) Skin: Positive for: Warm, Dry. Negative for: Rashes Psychiatric: Positive for: Alert, Oriented x 3 - Medications Active Medications: Active Medications Generic Name Dose Route Start Last Admin Trade Name Freq PRN Reason Stop Dose Admin Albuterol/Ipratropium 3 ml 11/09/17 00:00 11/16/17 07:52 Duoneb 3 Mg/0.5 Mg (3 Ml) Ud INH 3 ml RQ4 YESENIA Administration Apixaban 2.5 mg 11/11/17 09:00 11/11/17 12:53 Eliquis PO Not Given BID YESENIA Protocol Ascorbic Acid 1,000 mg 11/09/17 09:15 11/16/17 09:09 Vitamin C 500 Mg Tab PO 1,000 mg DAILY YESENIA Administration Carvedilol 12.5 mg 11/13/17 09:00 11/16/17 09:08 Coreg PO 12.5 mg Q12 YESENIA Administration Enoxaparin Sodium 60 mg 11/15/17 09:00 11/16/17 09:08 Lovenox SC 60 mg Q12 YESENIA Administration Protocol Ciprofloxacin 400 mg in 200 mls @ 200 mls/hr 11/15/17 21:00 11/16/17 09:06 Cipro 400mg/200ml Dsw IVPB 200 mls/hr Q12 YESENIA Administration Protocol Insulin Human Lispro 0 units 11/09/17 12:00 11/16/17 05:09 Humalog SC Not Given Q6H YESENIA Protocol Methylprednisolone 40 mg 11/13/17 09:00 11/16/17 09:08 Solu-Medrol IVP 40 mg Q12 YESENIA Administration Multivitamins/Vitamin C 15 ml 11/09/17 09:00 11/16/17 09:10 Multi-Delyn Liquid PO 15 ml DAILY YESENIA Administration Pantoprazole Sodium 40 mg 11/13/17 09:00 11/16/17 09:08 Protonix Ec Tab PO 40 mg DAILY YESENIA Administration Thiamine HCl 100 mg 11/09/17 09:00 11/16/17 09:09 Vitamin B1 Tab PO 100 mg DAILY YESENIA Administration - Patient Studies Lab Studies: Lab Studies 11/16/17 11/16/17 11/16/17 Range/Units 05:20 04:46 04:35 WBC (4.8-10.8) K/uL RBC (4.40-5.90) Mil/uL Hgb (12.0-18.0) g/dL Hct (35.0-51.0) % MCV (80.0-94.0) fl MCH (27.0-31.0) pg MCHC (33.0-37.0) g/dL RDW (11.5-14.5) % Plt Count (130-400) K/uL pCO2 69 H (35-45) mm/Hg pO2 222 H (80-100) mm/Hg HCO3 36.7 H (21-28) mmol/L ABG pH 7.40 (7.35-7.45) ABG Total CO2 44.8 H (22-28) mmol/L ABG O2 Saturation 99.4 H (95-98) % ABG O2 Content 15.4 (15-23) ML/dL ABG Base Excess 15.1 H (-2.0-3.0) mmol/L ABG Hemoglobin 11.0 L (11.7-17.4) g/dL ABG Carboxyhemoglobin 1.8 H (0.5-1.5) % POC ABG HHb (Measured) 0.6 (0.0-5.0) % ABG Methemoglobin 1.5 (0.0-3.0) % ABG O2 Capacity 15.5 L (16-24) mL/dL Garrick Test Yes A-a O2 Difference 48.0 mm/Hg Hgb O2 Saturation 96.1 (95.0-98.0) % Vent Mode Bipap Mechanical Rate 15 FiO2 50.0 % Inspiratory BiPAP 16 Expiratory BiPAP 7 Sodium 146 (132-148) mmol/l Potassium 4.2 (3.6-5.0) MMOL/L Chloride 97 L (98-107) mmol/L Carbon Dioxide 40 H* (22-30) mmol/L Anion Gap 13 (10-20) BUN 38 H (9-20) mg/dl Creatinine 0.7 L (0.8-1.5) mg/dl Est GFR ( Amer) > 60 Est GFR (Non-Af Amer) > 60 POC Glucose (mg/dL) 124 H (65-110) mg/dL Random Glucose 150 H (75-110) mg/dL Calcium 7.9 L (8.4-10.2) mg/dL Total Bilirubin 0.7 (0.2-1.3) mg/dl AST 32 (17-59) U/L ALT 129 H D (21-72) U/L Alkaline Phosphatase 57 (38-126) U/L Total Protein 5.7 L (6.3-8.2) G/DL Albumin 2.4 L D (3.5-5.0) g/dL Globulin 3.3 (2.2-3.9) gm/dL Albumin/Globulin Ratio 0.7 L (1.0-2.1) 11/16/17 11/15/1718 Range/Units 04:35 21:00 16:43 WBC 9.2 (4.8-10.8) K/uL RBC 3.67 L (4.40-5.90) Mil/uL Hgb 10.8 L (12.0-18.0) g/dL Hct 33.7 L (35.0-51.0) % MCV 91.6 (80.0-94.0) fl MCH 29.4 (27.0-31.0) pg MCHC 32.0 L (33.0-37.0) g/dL RDW 15.3 H (11.5-14.5) % Plt Count 211 (130-400) K/uL pCO2 (35-45) mm/Hg pO2 (80-100) mm/Hg HCO3 (21-28) mmol/L ABG pH (7.35-7.45) ABG Total CO2 (22-28) mmol/L ABG O2 Saturation (95-98) % ABG O2 Content (15-23) ML/dL ABG Base Excess (-2.0-3.0) mmol/L ABG Hemoglobin (11.7-17.4) g/dL ABG Carboxyhemoglobin (0.5-1.5) % POC ABG HHb (Measured) (0.0-5.0) % ABG Methemoglobin (0.0-3.0) % ABG O2 Capacity (16-24) mL/dL Garrick Test A-a O2 Difference mm/Hg Hgb O2 Saturation (95.0-98.0) % Vent Mode Mechanical Rate FiO2 % Inspiratory BiPAP Expiratory BiPAP Sodium (132-148) mmol/l Potassium (3.6-5.0) MMOL/L Chloride (98-107) mmol/L Carbon Dioxide (22-30) mmol/L Anion Gap (10-20) BUN (9-20) mg/dl Creatinine (0.8-1.5) mg/dl Est GFR ( Amer) Est GFR (Non-Af Amer) POC Glucose (mg/dL) 163 H 119 H (65-110) mg/dL Random Glucose (75-110) mg/dL Calcium (8.4-10.2) mg/dL Total Bilirubin (0.2-1.3) mg/dl AST (17-59) U/L ALT (21-72) U/L Alkaline Phosphatase (38-126) U/L Total Protein (6.3-8.2) G/DL Albumin (3.5-5.0) g/dL Globulin (2.2-3.9) gm/dL Albumin/Globulin Ratio (1.0-2.1) / Range/Units 11:07 WBC (4.8-10.8) K/uL RBC (4.40-5.90) Mil/uL Hgb (12.0-18.0) g/dL Hct (35.0-51.0) % MCV (80.0-94.0) fl MCH (27.0-31.0) pg MCHC (33.0-37.0) g/dL RDW (11.5-14.5) % Plt Count (130-400) K/uL pCO2 (35-45) mm/Hg pO2 (80-100) mm/Hg HCO3 (21-28) mmol/L ABG pH (7.35-7.45) ABG Total CO2 (22-28) mmol/L ABG O2 Saturation (95-98) % ABG O2 Content (15-23) ML/dL ABG Base Excess (-2.0-3.0) mmol/L ABG Hemoglobin (11.7-17.4) g/dL ABG Carboxyhemoglobin (0.5-1.5) % POC ABG HHb (Measured) (0.0-5.0) % ABG Methemoglobin (0.0-3.0) % ABG O2 Capacity (16-24) mL/dL Garrick Test A-a O2 Difference mm/Hg Hgb O2 Saturation (95.0-98.0) % Vent Mode Mechanical Rate FiO2 % Inspiratory BiPAP Expiratory BiPAP Sodium (132-148) mmol/l Potassium (3.6-5.0) MMOL/L Chloride (98-107) mmol/L Carbon Dioxide (22-30) mmol/L Anion Gap (10-20) BUN (9-20) mg/dl Creatinine (0.8-1.5) mg/dl Est GFR ( Amer) Est GFR (Non-Af Amer) POC Glucose (mg/dL) 135 H (65-110) mg/dL Random Glucose (75-110) mg/dL Calcium (8.4-10.2) mg/dL Total Bilirubin (0.2-1.3) mg/dl AST (17-59) U/L ALT (21-72) U/L Alkaline Phosphatase (38-126) U/L Total Protein (6.3-8.2) G/DL Albumin (3.5-5.0) g/dL Globulin (2.2-3.9) gm/dL Albumin/Globulin Ratio (1.0-2.1) Laboratory Results - last 24 hr 11/15/17 11/15/17 11/15/17 11:07 16:43 21:00 WBC RBC Hgb Hct MCV MCH MCHC RDW Plt Count pCO2 pO2 HCO3 ABG pH ABG Total CO2 ABG O2 Saturation ABG O2 Content ABG Base Excess ABG Hemoglobin ABG Carboxyhemoglobin POC ABG HHb (Measured) ABG Methemoglobin ABG O2 Capacity Garrick Test A-a O2 Difference Hgb O2 Saturation Vent Mode Mechanical Rate FiO2 Inspiratory BiPAP Expiratory BiPAP Sodium Potassium Chloride Carbon Dioxide Anion Gap BUN Creatinine Est GFR ( Amer) Est GFR (Non-Af Amer) POC Glucose (mg/dL) 135 H 119 H 163 H Random Glucose Calcium Total Bilirubin AST ALT Alkaline Phosphatase Total Protein Albumin Globulin Albumin/Globulin Ratio 11/16/17 11/16/17 11/16/17 04:35 04:35 04:46 WBC 9.2 RBC 3.67 L Hgb 10.8 L Hct 33.7 L MCV 91.6 MCH 29.4 MCHC 32.0 L RDW 15.3 H Plt Count 211 pCO2 pO2 HCO3 ABG pH ABG Total CO2 ABG O2 Saturation ABG O2 Content ABG Base Excess ABG Hemoglobin ABG Carboxyhemoglobin POC ABG HHb (Measured) ABG Methemoglobin ABG O2 Capacity Garrick Test A-a O2 Difference Hgb O2 Saturation Vent Mode Mechanical Rate FiO2 Inspiratory BiPAP Expiratory BiPAP Sodium 146 Potassium 4.2 Chloride 97 L Carbon Dioxide 40 H* Anion Gap 13 BUN 38 H Creatinine 0.7 L Est GFR ( Amer) > 60 Est GFR (Non-Af Amer) > 60 POC Glucose (mg/dL) 124 H Random Glucose 150 H Calcium 7.9 L Total Bilirubin 0.7 AST 32 ALT 129 H D Alkaline Phosphatase 57 Total Protein 5.7 L Albumin 2.4 L D Globulin 3.3 Albumin/Globulin Ratio 0.7 L 11/16/17 05:20 WBC RBC Hgb Hct MCV MCH MCHC RDW Plt Count pCO2 69 H pO2 222 H HCO3 36.7 H ABG pH 7.40 ABG Total CO2 44.8 H ABG O2 Saturation 99.4 H ABG O2 Content 15.4 ABG Base Excess 15.1 H ABG Hemoglobin 11.0 L ABG Carboxyhemoglobin 1.8 H POC ABG HHb (Measured) 0.6 ABG Methemoglobin 1.5 ABG O2 Capacity 15.5 L Garrick Test Yes A-a O2 Difference 48.0 Hgb O2 Saturation 96.1 Vent Mode Bipap Mechanical Rate 15 FiO2 50.0 Inspiratory BiPAP 16 Expiratory BiPAP 7 Sodium Potassium Chloride Carbon Dioxide Anion Gap BUN Creatinine Est GFR ( Amer) Est GFR (Non-Af Amer) POC Glucose (mg/dL) Random Glucose Calcium Total Bilirubin AST ALT Alkaline Phosphatase Total Protein Albumin Globulin Albumin/Globulin Ratio Fingerstick Blood Sugar Results: 98 Critical Care Progress Note - Nutrition Nutrition: Nutrition Category Date Time Status Dysphagia/Modified Consistency Diet [DIET] Diets 11/13/17 Breakfast Active Assessment/Plan - Assessment and Plan (Free Text) Assessment: 1. Acute Hypoxemic Resp failure : improving, extubated, 2. Bilateral Pneumonia 3. Systolic CHF with pulm edema: improving 4. NICHOLE: cardio-renal syndrome 5. Rate Controlled Atrial Fib, on AC. 6- Metabolic Alkalosis : due to diuretics and due to chronic resp acidosis, compensation PLAN: 1. ECHO results from 11/09 noted with EF 25%. Cardiology eval pending. 2. lasix 20 mg IV q 12 h 3. ACEi started 4. Empiric Abx coverage noted since 11/08. 5. Will also start acetozolamide also 6. Will talk to jammer operator regarding anticoagulants, about discontinuing lovenox and starting eliquis. CCU Objective
--- NOTE | 2017-11-16 11:40 | RAD ---
PROCEDURE: CHEST RADIOGRAPH, 1 VIEW HISTORY: CHF COMPARISON: 11/14/2017 FINDINGS: LUNGS: Lung parks are minimally improved with patchy bilateral edema identified. Right internal jugular vein CVP is unchanged. PLEURA: Chronic pleural thickening is seen on the right with calcification noted. Small effusions are suspected. There is also right apical density which may reflect some pleural thickening or pleural fluid. This is unchanged. Trachea is mildly deviated to the right but unchanged. CARDIOVASCULAR: Heart is enlarged. There is evidence of slight decrease in vascular congestion. OSSEOUS STRUCTURES: No significant abnormalities. VISUALIZED UPPER ABDOMEN: Normal. OTHER FINDINGS: None. IMPRESSION: Minimal interval improvement in aeration although persistent alveolar edema or infiltrates remain.
--- NOTE | 2017-11-16 17:24 | CP.PCM.PN ---
Subjective - Date & Time of Evaluation Date of Evaluation: 11/16/17 Time of Evaluation: 14:00 - Subjective Subjective: F/U respiratory Failure. Alert , better apetite, but Patient states still do not like purree diet with thicken fluids Objective - Vital Signs/Intake and Output Vital Signs (last 24 hours): Temp Pulse Resp BP Pulse Ox 97.7 F 83 20 104/69 100 11/16/17 16:14 11/16/17 16:14 11/16/17 16:14 11/16/17 16:56 11/16/17 16:14 Intake and Output: 11/16/17 11/16/17 06:59 18:59 Intake Total 337 520 Output Total 500 300 Balance -163 220 - Medications Medications: Current Medications Acetazolamide (Diamox 250 Mg Tab) 250 mg PO BID [facility] Last Admin: 11/16/17 16:54 Dose: 250 mg Albuterol/Ipratropium (Duoneb 3 Mg/0.5 Mg (3 Ml) Ud) 3 ml INH RQ4 [facility] Last Admin: 11/16/17 15:27 Dose: 3 ml Apixaban (Eliquis) 2.5 mg PO BID YESENIA PRN Reason: Protocol Last Admin: 11/11/17 12:53 Dose: Not Given Ascorbic Acid (Vitamin C 500 Mg Tab) 1,000 mg PO DAILY [facility] Last Admin: 11/16/17 09:09 Dose: 1,000 mg Carvedilol (Coreg) 12.5 mg PO Q12 YESENIA Last Admin: 11/16/17 09:08 Dose: 12.5 mg Enoxaparin Sodium (Lovenox) 60 mg SC Q12 YESENIA PRN Reason: Protocol Last Admin: 11/16/17 09:08 Dose: 60 mg Furosemide (Lasix) 20 mg IVP BID [facility] Last Admin: 11/16/17 16:56 Dose: 20 mg Ciprofloxacin (Cipro 400mg/200ml Dsw) 400 mg in 200 mls @ 200 mls/hr IVPB Q12 YESENIA PRN Reason: Protocol Last Admin: 11/16/17 09:06 Dose: 200 mls/hr Insulin Human Lispro (Humalog) 0 units SC Q6H YESENIA PRN Reason: Protocol Last Admin: 11/16/17 12:29 Dose: 1 unit Methylprednisolone (Solu-Medrol) 40 mg IVP Q12 [facility] Last Admin: 11/16/17 09:08 Dose: 40 mg Multivitamins/Vitamin C (Multi-Delyn Liquid) 15 ml PO DAILY [facility] Last Admin: 11/16/17 09:10 Dose: 15 ml Pantoprazole Sodium (Protonix Ec Tab) 40 mg PO DAILY [facility] Last Admin: 11/16/17 09:08 Dose: 40 mg Ramipril (Altace) 2.5 mg PO BID [facility] Last Admin: 11/16/17 16:54 Dose: 2.5 mg Thiamine HCl (Vitamin B1 Tab) 100 mg PO DAILY [facility] Last Admin: 11/16/17 09:09 Dose: 100 mg - Labs Labs: 11/16/17 04:35 11/16/17 04:35 PT 15.2 Seconds (9.8-13.1) H 11/14/17 04:20 INR 1.4 (0.9-1.2) H 11/14/17 04:20 APTT 34.8 Seconds (25.6-37.1) 11/14/17 04:20 - Constitutional Appears: No Acute Distress - Head Exam Head Exam: NORMAL INSPECTION - Eye Exam Eye Exam: PERRL - ENT Exam ENT Exam: Normal Exam - Neck Exam Neck Exam: Normal Inspection - Respiratory Exam Respiratory Exam: Decreased Breath Sounds (at bases), Rhonchi (few at bases) - Cardiovascular Exam Cardiovascular Exam: Irregular Rhythm - GI/Abdominal Exam GI & Abdominal Exam: Soft, Normal Bowel Sounds - Extremities Exam Extremities Exam: Normal Inspection - Back Exam Back Exam: NORMAL INSPECTION - Neurological Exam Neurological Exam: Alert Additional comments: no focal , motor/sensory deficit , generalized weakness - Psychiatric Exam Psychiatric exam: Anxious - Skin Skin Exam: Warm Assessment and Plan (1) Respiratory failure Status: Acute (2) Atrial fibrillation with RVR Status: Acute (3) COPD exacerbation Status: Acute (4) Pneumonia Status: Acute (5) CHF (congestive heart failure) Status: Acute (6) Sepsis Status: Acute - Assessment and Plan (Free Text) Plan: continue Cipro , Duoneb , Solu Medrol , Lasix , Diamox , Insulin ICU Time: 42 min.
[2017-11-17] MEDS: Insulin Lispro (humaLOG) 100 Units/ml Inj SC SCH ×4 (00:30→17:23)
[2017-11-17] MEDS: Albuterol-Ipratrop 3 mg / 0.5 (3 ml) UD INH SCH ×5 (04:45→19:11)
[2017-11-17 04:59] LABS: ABG ALLEN TEST YES; ARTERIAL BLOOD GAS HCO3 35.1 mmol/L (21-28); ARTERIAL BLOOD GAS HEMOGLOBIN 11.9 g/dL (11.7-17.4); ARTERIAL BLOOD GAS O2 CAPACITY 16.8 mL/dL (16-24); ARTERIAL BLOOD GAS O2 CONTENT 16.8 ML/dL (15-23); ARTERIAL BLOOD GAS O2 SAT 99.9 % (95-98); ARTERIAL BLOOD GAS PCO2 60 mm/Hg (35-45); ARTERIAL BLOOD GAS PH 7.43 (7.35-7.45); ARTERIAL BLOOD GAS PO2 271 mm/Hg (80-100); ARTERIAL BLOOD GAS TCO2 41.6 mmol/L (22-28)
[2017-11-17 06:11] LABS: BASO % 0.1 % (0.0-2.0); HEMOGLOBIN 11.7 g/dL (12.0-18.0); LYMPH # 0.3 K/uL (1.0-4.3); LYMPH % 2.4 % (20.0-40.0); MEAN CELL VOLUME 92.4 fl (80.0-94.0); MEAN CORPUSCULAR HEMOGLOBIN 29.3 pg (27.0-31.0); MEAN CORPUSCULAR HGB CONC 31.7 g/dL (33.0-37.0); MONO # 0.4 K/uL (0.0-0.8); MONO % 2.6 % (0.0-10.0); NEUT # 12.9 K/uL (1.8-7.0); NEUT % 94.9 % (50.0-75.0); NRBC % 0.1 % (0.0-0.0); PLATELET COUNT 228 K/uL (130-400); RBC 3.99 Mil/uL (4.40-5.90); RED CELL DISTRIBUTION WIDTH 15.6 % (11.5-14.5); WHITE BLOOD COUNT 13.6 K/uL (4.8-10.8)
[2017-11-17 06:28] LABS: BLOOD UREA NITROGEN 30 mg/dl (9-20); CALCIUM 8.2 mg/dL (8.4-10.2); GFR AFRICAN-AMERICAN > 60; GFR NON-AFRICAN AMERICAN > 60
--- NOTE | 2017-11-17 09:29 | CP.CCUPN ---
CCU Subjective - Physician Review Events Since Last Encounter (Free Text): 11/17/17 09:25 Awake, alert, no sob, BS +ve, no CCU Objective - Vital Signs / Intake & Output Vital Signs (Last 4 hours): Vital Signs Temp Pulse Resp BP Pulse Ox 11/17/17 08:00 98.0 F 84 8 L 104/71 100 11/17/17 06:00 78 12 91/66 L 100 Intake and Output (Last 8hrs): Intake & Output 11/16/17 11/17/17 11/17/17 22:59 06:59 14:59 Intake Total 354 16 Output Total 900 2100 Balance -546 2081 Weight 145 lb Intake: IV 4 16 Intake, Piggyback 250 Oral 100 Output: Urine 900 2100 Condom 900 Urethral (Weaver) 2100 - Physical Exam Narrative Physical Exam (Free Text): 11/17/17 09:25 P/E Neck: No JVD Lungs: No ronchi, crackles Abdomen: non-tender BS +ve Ext: No edema heart: No gallop Head: Positive for: Atraumatic, Normocephalic Pupils: Positive for: PERRL Extroacular Muscles: Positive for: EOMI Conjunctiva: Negative for: Icteric Mouth: Positive for: Moist Mucous Membranes Neck: Positive for: Normal Range of Motion. Negative for: JVD Respiratory/Chest: Positive for: Good Air Exchange, Decreased Breath Sounds Cardiovascular: Positive for: Normal S1, S2, Irregular Rhythm Abdomen: Positive for: Normal Bowel Sounds. Negative for: Tenderness, Distention, Mass/Organomegaly Upper Extremity: Positive for: Normal Inspection Lower Extremity: Positive for: Normal Inspection, NORMAL PULSES. Negative for: CALF TENDERNESS, Cyanosis Neurological: Positive for: Motor Func Grossly Intact, Normal Sensory Function, Other (sedatd on ventilator) Skin: Positive for: Warm, Dry. Negative for: Rashes Psychiatric: Positive for: Alert, Oriented x 3 - Medications Active Medications: Active Medications Generic Name Dose Route Start Last Admin Trade Name Freq PRN Reason Stop Dose Admin Acetazolamide 250 mg 11/16/17 17:00 11/16/17 16:54 Diamox 250 Mg Tab PO 250 mg BID YESENIA Administration Albuterol/Ipratropium 3 ml 11/09/17 00:00 11/17/17 07:35 Duoneb 3 Mg/0.5 Mg (3 Ml) Ud INH 3 ml RQ4 YESENIA Administration Apixaban 2.5 mg 11/11/17 09:00 11/11/17 12:53 Eliquis PO Not Given BID YESENIA Protocol Ascorbic Acid 1,000 mg 11/09/17 09:15 11/16/17 09:09 Vitamin C 500 Mg Tab PO 1,000 mg DAILY YESENIA Administration Carvedilol 12.5 mg 11/13/17 09:00 11/16/17 20:22 Coreg PO Not Given Q12 YESENIA Furosemide 20 mg 11/16/17 17:00 11/16/17 16:56 Lasix IVP 20 mg BID YESENIA Administration Ciprofloxacin 400 mg in 200 mls @ 200 mls/hr 11/15/17 21:00 11/16/17 20:15 Cipro 400mg/200ml Dsw IVPB 200 mls/hr Q12 YESENIA Administration Protocol Insulin Human Lispro 0 units 11/09/17 12:00 11/17/17 06:24 Humalog SC 1 unit Q6H YESENIA Administration Protocol Methylprednisolone 40 mg 11/13/17 09:00 11/16/17 20:16 Solu-Medrol IVP 40 mg Q12 YESENIA Administration Multivitamins/Vitamin C 15 ml 11/09/17 09:00 11/16/17 09:10 Multi-Delyn Liquid PO 15 ml DAILY YESENIA Administration Pantoprazole Sodium 40 mg 11/13/17 09:00 11/16/17 09:08 Protonix Ec Tab PO 40 mg DAILY YESENIA Administration Ramipril 2.5 mg 11/16/17 17:00 11/16/17 16:54 Altace PO 2.5 mg BID YESENIA Administration Thiamine HCl 100 mg 11/09/17 09:00 11/16/17 09:09 Vitamin B1 Tab PO 100 mg DAILY YESENIA Administration - Patient Studies Lab Studies: Lab Studies 11/17/17 11/17/17 11/17/17 Range/Units 06:16 04:56 04:28 WBC (4.8-10.8) K/uL RBC (4.40-5.90) Mil/uL Hgb (12.0-18.0) g/dL Hct (35.0-51.0) % MCV (80.0-94.0) fl MCH (27.0-31.0) pg MCHC (33.0-37.0) g/dL RDW (11.5-14.5) % Plt Count (130-400) K/uL MPV (7.2-11.7) fl Neut % (Auto) (50.0-75.0) % Lymph % (Auto) (20.0-40.0) % Navarro % (Auto) (0.0-10.0) % Eos % (Auto) (0.0-4.0) % Baso % (Auto) (0.0-2.0) % Neut # (Auto) (1.8-7.0) K/uL Lymph # (Auto) (1.0-4.3) K/uL Navarro # (Auto) (0.0-0.8) K/uL Eos # (Auto) (0.0-0.7) K/uL Baso # (Auto) (0.0-0.2) K/uL pCO2 60 H (35-45) mm/Hg pO2 271 H (80-100) mm/Hg HCO3 35.1 H (21-28) mmol/L ABG pH 7.43 (7.35-7.45) ABG Total CO2 41.6 H (22-28) mmol/L ABG O2 Saturation 99.9 H (95-98) % ABG O2 Content 16.8 (15-23) ML/dL ABG Base Excess 13.1 H (-2.0-3.0) mmol/L ABG Hemoglobin 11.9 (11.7-17.4) g/dL ABG Carboxyhemoglobin 2.2 H (0.5-1.5) % POC ABG HHb (Measured) 0.1 (0.0-5.0) % ABG Methemoglobin 1.5 (0.0-3.0) % ABG O2 Capacity 16.8 (16-24) mL/dL Garrick Test Yes A-a O2 Difference -61.0 mm/Hg Hgb O2 Saturation 96.2 (95.0-98.0) % Vent Mode Nasal cannula FiO2 40.0 % Sodium 143 (132-148) mmol/l Potassium 4.1 (3.6-5.0) MMOL/L Chloride 94 L (98-107) mmol/L Carbon Dioxide 39 H (22-30) mmol/L Anion Gap 14 (10-20) BUN 30 H (9-20) mg/dl Creatinine 0.9 (0.8-1.5) mg/dl Est GFR ( Amer) > 60 Est GFR (Non-Af Amer) > 60 POC Glucose (mg/dL) 151 H (65-110) mg/dL Random Glucose 172 H (75-110) mg/dL Calcium 8.2 L (8.4-10.2) mg/dL 11/17/17 11/16/17 11/16/17 Range/Units 04:28 22:06 16:35 WBC 13.6 H (4.8-10.8) K/uL RBC 3.99 L (4.40-5.90) Mil/uL Hgb 11.7 L (12.0-18.0) g/dL Hct 36.9 (35.0-51.0) % MCV 92.4 (80.0-94.0) fl MCH 29.3 (27.0-31.0) pg MCHC 31.7 L (33.0-37.0) g/dL RDW 15.6 H (11.5-14.5) % Plt Count 228 (130-400) K/uL MPV 8.0 (7.2-11.7) fl Neut % (Auto) 94.9 H (50.0-75.0) % Lymph % (Auto) 2.4 L (20.0-40.0) % Navarro % (Auto) 2.6 (0.0-10.0) % Eos % (Auto) 0.0 (0.0-4.0) % Baso % (Auto) 0.1 (0.0-2.0) % Neut # (Auto) 12.9 H (1.8-7.0) K/uL Lymph # (Auto) 0.3 L (1.0-4.3) K/uL Navarro # (Auto) 0.4 (0.0-0.8) K/uL Eos # (Auto) 0.0 (0.0-0.7) K/uL Baso # (Auto) 0.0 (0.0-0.2) K/uL pCO2 (35-45) mm/Hg pO2 (80-100) mm/Hg HCO3 (21-28) mmol/L ABG pH (7.35-7.45) ABG Total CO2 (22-28) mmol/L ABG O2 Saturation (95-98) % ABG O2 Content (15-23) ML/dL ABG Base Excess (-2.0-3.0) mmol/L ABG Hemoglobin (11.7-17.4) g/dL ABG Carboxyhemoglobin (0.5-1.5) % POC ABG HHb (Measured) (0.0-5.0) % ABG Methemoglobin (0.0-3.0) % ABG O2 Capacity (16-24) mL/dL Garrick Test A-a O2 Difference mm/Hg Hgb O2 Saturation (95.0-98.0) % Vent Mode FiO2 % Sodium (132-148) mmol/l Potassium (3.6-5.0) MMOL/L Chloride (98-107) mmol/L Carbon Dioxide (22-30) mmol/L Anion Gap (10-20) BUN (9-20) mg/dl Creatinine (0.8-1.5) mg/dl Est GFR ( Amer) Est GFR (Non-Af Amer) POC Glucose (mg/dL) 170 H 189 H (65-110) mg/dL Random Glucose (75-110) mg/dL Calcium (8.4-10.2) mg/dL // Range/Units 11:22 WBC (4.8-10.8) K/uL RBC (4.40-5.90) Mil/uL Hgb (12.0-18.0) g/dL Hct (35.0-51.0) % MCV (80.0-94.0) fl MCH (27.0-31.0) pg MCHC (33.0-37.0) g/dL RDW (11.5-14.5) % Plt Count (130-400) K/uL MPV (7.2-11.7) fl Neut % (Auto) (50.0-75.0) % Lymph % (Auto) (20.0-40.0) % Navarro % (Auto) (0.0-10.0) % Eos % (Auto) (0.0-4.0) % Baso % (Auto) (0.0-2.0) % Neut # (Auto) (1.8-7.0) K/uL Lymph # (Auto) (1.0-4.3) K/uL Navarro # (Auto) (0.0-0.8) K/uL Eos # (Auto) (0.0-0.7) K/uL Baso # (Auto) (0.0-0.2) K/uL pCO2 (35-45) mm/Hg pO2 (80-100) mm/Hg HCO3 (21-28) mmol/L ABG pH (7.35-7.45) ABG Total CO2 (22-28) mmol/L ABG O2 Saturation (95-98) % ABG O2 Content (15-23) ML/dL ABG Base Excess (-2.0-3.0) mmol/L ABG Hemoglobin (11.7-17.4) g/dL ABG Carboxyhemoglobin (0.5-1.5) % POC ABG HHb (Measured) (0.0-5.0) % ABG Methemoglobin (0.0-3.0) % ABG O2 Capacity (16-24) mL/dL Garrick Test A-a O2 Difference mm/Hg Hgb O2 Saturation (95.0-98.0) % Vent Mode FiO2 % Sodium (132-148) mmol/l Potassium (3.6-5.0) MMOL/L Chloride (98-107) mmol/L Carbon Dioxide (22-30) mmol/L Anion Gap (10-20) BUN (9-20) mg/dl Creatinine (0.8-1.5) mg/dl Est GFR ( Amer) Est GFR (Non-Af Amer) POC Glucose (mg/dL) 186 H (65-110) mg/dL Random Glucose (75-110) mg/dL Calcium (8.4-10.2) mg/dL Laboratory Results - last 24 hr 11/16/17 11/16/17 11/16/17 11:22 16:35 22:06 WBC RBC Hgb Hct MCV MCH MCHC RDW Plt Count MPV Neut % (Auto) Lymph % (Auto) Navarro % (Auto) Eos % (Auto) Baso % (Auto) Neut # (Auto) Lymph # (Auto) Navarro # (Auto) Eos # (Auto) Baso # (Auto) pCO2 pO2 HCO3 ABG pH ABG Total CO2 ABG O2 Saturation ABG O2 Content ABG Base Excess ABG Hemoglobin ABG Carboxyhemoglobin POC ABG HHb (Measured) ABG Methemoglobin ABG O2 Capacity Garrick Test A-a O2 Difference Hgb O2 Saturation Vent Mode FiO2 Sodium Potassium Chloride Carbon Dioxide Anion Gap BUN Creatinine Est GFR ( Amer) Est GFR (Non-Af Amer) POC Glucose (mg/dL) 186 H 189 H 170 H Random Glucose Calcium 11/17/17 11/17/17 11/17/17 04:28 04:28 04:56 WBC 13.6 H RBC 3.99 L Hgb 11.7 L Hct 36.9 MCV 92.4 MCH 29.3 MCHC 31.7 L RDW 15.6 H Plt Count 228 MPV 8.0 Neut % (Auto) 94.9 H Lymph % (Auto) 2.4 L Navarro % (Auto) 2.6 Eos % (Auto) 0.0 Baso % (Auto) 0.1 Neut # (Auto) 12.9 H Lymph # (Auto) 0.3 L Navarro # (Auto) 0.4 Eos # (Auto) 0.0 Baso # (Auto) 0.0 pCO2 60 H pO2 271 H HCO3 35.1 H ABG pH 7.43 ABG Total CO2 41.6 H ABG O2 Saturation 99.9 H ABG O2 Content 16.8 ABG Base Excess 13.1 H ABG Hemoglobin 11.9 ABG Carboxyhemoglobin 2.2 H POC ABG HHb (Measured) 0.1 ABG Methemoglobin 1.5 ABG O2 Capacity 16.8 Garrick Test Yes A-a O2 Difference -61.0 Hgb O2 Saturation 96.2 Vent Mode Nasal cannula FiO2 40.0 Sodium 143 Potassium 4.1 Chloride 94 L Carbon Dioxide 39 H Anion Gap 14 BUN 30 H Creatinine 0.9 Est GFR ( Amer) > 60 Est GFR (Non-Af Amer) > 60 POC Glucose (mg/dL) Random Glucose 172 H Calcium 8.2 L 11/17/17 06:16 WBC RBC Hgb Hct MCV MCH MCHC RDW Plt Count MPV Neut % (Auto) Lymph % (Auto) Navarro % (Auto) Eos % (Auto) Baso % (Auto) Neut # (Auto) Lymph # (Auto) Navarro # (Auto) Eos # (Auto) Baso # (Auto) pCO2 pO2 HCO3 ABG pH ABG Total CO2 ABG O2 Saturation ABG O2 Content ABG Base Excess ABG Hemoglobin ABG Carboxyhemoglobin POC ABG HHb (Measured) ABG Methemoglobin ABG O2 Capacity Garrick Test A-a O2 Difference Hgb O2 Saturation Vent Mode FiO2 Sodium Potassium Chloride Carbon Dioxide Anion Gap BUN Creatinine Est GFR ( Amer) Est GFR (Non-Af Amer) POC Glucose (mg/dL) 151 H Random Glucose Calcium Fingerstick Blood Sugar Results: 155 Critical Care Progress Note - Nutrition Nutrition: Nutrition Category Date Time Status Dysphagia/Modified Consistency Diet [DIET] Diets 11/13/17 Breakfast Active Assessment/Plan - Assessment and Plan (Free Text) Assessment: Assessment: 1. Acute Hypoxemic Resp failure : improving, extubated, , has chronic resp acidosis, 2. Bilateral Pneumonia : clinically improving 3. Systolic CHF with pulm edema: improving 4. NICHOLE: cardio-renal syndrome : Improving 5. Rate Controlled Atrial Fib, on AC. 6- Metabolic Alkalosis : due to diuretics and due to chronic resp acidosis, compensation , serum bicarb , improving , on diamox PLAN: 1. ECHO results from 11/09 noted with EF 25%. Cardiology, following 2. lasix 20 mg IV q 12 h, started yesterday 3. ACEi started yesterday, ramipril 2.4 mg po BID 4. Empiric Abx coverage noted since 11/08. 5. Will also start acetozolamide also 250 mg po BID 6. lovenox Dced, no on eliquis.
[2017-11-17] MEDS: MethylPREDNISolone 40 mg Vial IVP SCH ×2 (09:32→20:23)
[2017-11-17] MEDS: Multi Vitamins 15 mL UD Oral Solution PO SCH (09:33)
[2017-11-17] MEDS: Pantoprazole 40 mg EC Tab PO SCH (09:33)
[2017-11-17] MEDS: Ciprofloxacin 400mg/200ml D5W 400 MG/200 ML BAG IVPB SCH ×2 (09:38→20:16)
[2017-11-17 11:56] LABS: BANDS 1 % (0-2); LYMPHOCYTE 2 % (20-50); MONOCYTE 1 % (0-10); NEUTROPHIL 96 % (42-75); PLATELET ESTIMATE NORMAL (NORMAL); TOTAL CELLS COUNTED 100
[2017-11-17 11:57] LABS: ANISOCYTOSIS SLIGHT; HYPOCHROMIC SLIGHT; OVALOCYTES SLIGHT; TEARDROP CELLS SLIGHT
--- NOTE | 2017-11-17 15:44 | CP.PCM.PN ---
Subjective - Date & Time of Evaluation Date of Evaluation: 11/17/17 Time of Evaluation: 16:00 - Subjective Subjective: F/U Respiratory failure No SOB , no C/P , better appetite , on puree diet Objective - Vital Signs/Intake and Output Vital Signs (last 24 hours): Temp Pulse Resp BP Pulse Ox 98.3 F 86 17 91/56 L 99 11/17/17 12:00 11/17/17 12:00 11/17/17 12:00 11/17/17 12:00 11/17/17 12:00 Intake and Output: 11/17/17 11/17/17 06:59 18:59 Intake Total 270 300 Output Total 2100 150 Balance -1830 150 - Medications Medications: Current Medications Acetazolamide (Diamox 250 Mg Tab) 250 mg PO BID [facility] Last Admin: 11/17/17 09:33 Dose: 250 mg Albuterol/Ipratropium (Duoneb 3 Mg/0.5 Mg (3 Ml) Ud) 3 ml INH RQ4 YESENIA Last Admin: 11/17/17 15:32 Dose: 3 ml Apixaban (Eliquis) 2.5 mg PO BID YESENIA PRN Reason: Protocol Last Admin: 11/17/17 11:01 Dose: 2.5 mg Ascorbic Acid (Vitamin C 500 Mg Tab) 1,000 mg PO DAILY [facility] Last Admin: 11/17/17 09:33 Dose: 1,000 mg Carvedilol (Coreg) 12.5 mg PO Q12 YESENIA Last Admin: 11/17/17 09:40 Dose: 12.5 mg Furosemide (Lasix) 20 mg IVP BID [facility] Last Admin: 11/17/17 11:00 Dose: 20 mg Ciprofloxacin (Cipro 400mg/200ml Dsw) 400 mg in 200 mls @ 200 mls/hr IVPB Q12 YESENIA PRN Reason: Protocol Last Admin: 11/17/17 09:38 Dose: 200 mls/hr Insulin Human Lispro (Humalog) 0 units SC Q6H YESENIA PRN Reason: Protocol Last Admin: 11/17/17 12:34 Dose: 2 unit Methylprednisolone (Solu-Medrol) 40 mg IVP Q12 YESENIA Last Admin: 11/17/17 09:32 Dose: 40 mg Multivitamins/Vitamin C (Multi-Delyn Liquid) 15 ml PO DAILY YESENIA Last Admin: 11/17/17 09:33 Dose: 15 ml Pantoprazole Sodium (Protonix Ec Tab) 40 mg PO DAILY [facility] Last Admin: 11/17/17 09:33 Dose: 40 mg Ramipril (Altace) 2.5 mg PO BID [facility] Last Admin: 11/17/17 09:37 Dose: Not Given Thiamine HCl (Vitamin B1 Tab) 100 mg PO DAILY [facility] Last Admin: 11/17/17 09:33 Dose: 100 mg - Labs Labs: 11/17/17 04:28 11/17/17 04:28 PT 15.2 Seconds (9.8-13.1) H 11/14/17 04:20 INR 1.4 (0.9-1.2) H 11/14/17 04:20 APTT 34.8 Seconds (25.6-37.1) 11/14/17 04:20 - Constitutional Appears: Chronically Ill - Head Exam Head Exam: NORMAL INSPECTION - Eye Exam Eye Exam: PERRL - ENT Exam ENT Exam: Normal Exam - Neck Exam Neck Exam: Normal Inspection - Respiratory Exam Respiratory Exam: Decreased Breath Sounds (at bases) - Cardiovascular Exam Cardiovascular Exam: Irregular Rhythm - GI/Abdominal Exam GI & Abdominal Exam: Soft, Normal Bowel Sounds - Extremities Exam Extremities Exam: Normal Inspection - Back Exam Back Exam: NORMAL INSPECTION - Neurological Exam Neurological Exam: Alert Additional comments: no focal motor/sensory deficit , generalized weakness - Psychiatric Exam Psychiatric exam: Anxious - Skin Skin Exam: Warm Assessment and Plan (1) Respiratory failure Status: Acute (2) Atrial fibrillation with RVR Status: Acute (3) COPD exacerbation Status: Acute (4) Staphylococcal pneumonia Status: Acute (5) CHF (congestive heart failure) Status: Acute (6) Sepsis Status: Acute (7) Metabolic alkalosis Status: Acute - Assessment and Plan (Free Text) Plan: continue DuoNeb , Cipro , taper Solu Medrol slowly, Diamox , Lasix , Insulin and rest of treatment , PT , f/u swallowing eval. in am ICU Time: 38 min.
[2017-11-18] MEDS: Albuterol-Ipratrop 3 mg / 0.5 (3 ml) UD INH SCH ×7 (04:55→23:37)
[2017-11-18 06:13] LABS: BASO % 0.2 % (0.0-2.0); HEMOGLOBIN 11.2 g/dL (12.0-18.0); LYMPH # 0.5 K/uL (1.0-4.3); LYMPH % 2.8 % (20.0-40.0); MEAN CELL VOLUME 91.4 fl (80.0-94.0); MEAN CORPUSCULAR HEMOGLOBIN 29.1 pg (27.0-31.0); MEAN CORPUSCULAR HGB CONC 31.8 g/dL (33.0-37.0); MONO # 0.6 K/uL (0.0-0.8); MONO % 3.8 % (0.0-10.0); NEUT # 15.3 K/uL (1.8-7.0); NEUT % 93.2 % (50.0-75.0); PLATELET COUNT 226 K/uL (130-400); RBC 3.84 Mil/uL (4.40-5.90); RED CELL DISTRIBUTION WIDTH 15.5 % (11.5-14.5); WHITE BLOOD COUNT 16.4 K/uL (4.8-10.8)
[2017-11-18] MEDS: Insulin Lispro (humaLOG) 100 Units/ml Inj SC SCH ×4 (06:15→17:21)
[2017-11-18 06:22] LABS: BLOOD UREA NITROGEN 34 mg/dl (9-20); CALCIUM 8.4 mg/dL (8.4-10.2); GFR AFRICAN-AMERICAN > 60; GFR NON-AFRICAN AMERICAN > 60
--- NOTE | 2017-11-18 07:31 | CP.CCUPN ---
CCU Subjective - Physician Review Events Since Last Encounter (Free Text): 11/18/17 13:12 The patient was Seen/interviewed and examined by me at the bedside during ICU round, Medical records reviewed and Management issues were discussed and formulated with the house staff. Events reviewed Patient with Acute Hypoxemic Resp failure sec to Bilateral Pneumonia, Successfully extubated, BP has been stable Afebrile Sitting comfortable in chair using I Spirometry Pt Alert, follows commands Denies any chest pain, SOB or Palpitations Patient refused to wear bipap, Doing well on 3L nasal cannula Last 24H I&O 890/3300 Sitting comfortable in chair This morning labs revealed persistent Leucocytosis Critical Care Time Spent (in minutes): 32 CCU Objective - Vital Signs / Intake & Output Vital Signs (Last 4 hours): Vital Signs Temp Pulse Resp BP Pulse Ox 11/18/17 06:00 87 19 91/58 L 98 11/18/17 04:00 98.5 F 82 11 L 93/65 L 100 Intake and Output (Last 8hrs): Intake & Output 11/17/17 11/18/17 11/18/17 22:59 06:59 14:59 Intake Total 408 16 Output Total 750 1300 Balance -342 -1284 Weight 145 lb Intake: IV 8 16 Intake, Piggyback 200 Oral 200 Output: Urine 750 1300 Condom 1300 Urethral (Weaver) 200 Urine, Voided 550 - Physical Exam Head: Positive for: Atraumatic, Normocephalic Pupils: Positive for: PERRL Extroacular Muscles: Positive for: EOMI Conjunctiva: Negative for: Icteric Mouth: Positive for: Moist Mucous Membranes Neck: Positive for: Normal Range of Motion. Negative for: JVD Respiratory/Chest: Positive for: Good Air Exchange, Decreased Breath Sounds Cardiovascular: Positive for: Normal S1, S2, Irregular Rhythm Abdomen: Positive for: Normal Bowel Sounds. Negative for: Tenderness, Distention, Mass/Organomegaly Upper Extremity: Positive for: Normal Inspection Lower Extremity: Positive for: Normal Inspection, NORMAL PULSES. Negative for: CALF TENDERNESS, Cyanosis Neurological: Positive for: Motor Func Grossly Intact, Normal Sensory Function, Other (sedatd on ventilator) Skin: Positive for: Warm, Dry. Negative for: Rashes Psychiatric: Positive for: Alert, Oriented x 3 - Medications Active Medications: Active Medications Generic Name Dose Route Start Last Admin Trade Name Freq PRN Reason Stop Dose Admin Acetazolamide 250 mg 11/16/17 17:00 11/17/17 17:22 Diamox 250 Mg Tab PO 250 mg BID YESENIA Administration Albuterol/Ipratropium 3 ml 11/09/17 00:00 11/18/17 04:55 Duoneb 3 Mg/0.5 Mg (3 Ml) Ud INH 3 ml RQ4 YESENIA Administration Apixaban 2.5 mg 11/11/17 09:00 11/17/17 17:23 Eliquis PO 2.5 mg BID YESENIA Administration Protocol Ascorbic Acid 1,000 mg 11/09/17 09:15 11/17/17 09:33 Vitamin C 500 Mg Tab PO 1,000 mg DAILY YESENIA Administration Carvedilol 12.5 mg 11/13/17 09:00 11/17/17 20:21 Coreg PO Not Given Q12 YESENIA Furosemide 20 mg 11/16/17 17:00 11/17/17 17:25 Lasix IVP 20 mg BID YESENIA Administration Ciprofloxacin 400 mg in 200 mls @ 200 mls/hr 11/15/17 21:00 11/17/17 20:16 Cipro 400mg/200ml Dsw IVPB 200 mls/hr Q12 YESENIA Administration Protocol Insulin Human Lispro 0 units 11/09/17 12:00 11/18/17 06:15 Humalog SC Not Given Q6H YESENIA Protocol Methylprednisolone 40 mg 11/13/17 09:00 11/17/17 20:23 Solu-Medrol IVP 40 mg Q12 YESENIA Administration Multivitamins/Vitamin C 15 ml 11/09/17 09:00 11/17/17 09:33 Multi-Delyn Liquid PO 15 ml DAILY YESENIA Administration Pantoprazole Sodium 40 mg 11/13/17 09:00 11/17/17 09:33 Protonix Ec Tab PO 40 mg DAILY YESENIA Administration Ramipril 2.5 mg 11/16/17 17:00 11/17/17 17:22 Altace PO 2.5 mg BID YESENIA Administration Thiamine HCl 100 mg 11/09/17 09:00 11/17/17 09:33 Vitamin B1 Tab PO 100 mg DAILY YESENIA Administration - Patient Studies Lab Studies: Lab Studies 11/18/17 11/18/17 11/18/17 Range/Units 06:14 05:30 05:30 WBC 16.4 H (4.8-10.8) K/uL RBC 3.84 L (4.40-5.90) Mil/uL Hgb 11.2 L (12.0-18.0) g/dL Hct 35.1 (35.0-51.0) % MCV 91.4 (80.0-94.0) fl MCH 29.1 (27.0-31.0) pg MCHC 31.8 L (33.0-37.0) g/dL RDW 15.5 H (11.5-14.5) % Plt Count 226 (130-400) K/uL MPV 8.0 (7.2-11.7) fl Neut % (Auto) 93.2 H (50.0-75.0) % Lymph % (Auto) 2.8 L (20.0-40.0) % [place] % (Auto) 3.8 (0.0-10.0) % Eos % (Auto) 0.0 (0.0-4.0) % Baso % (Auto) 0.2 (0.0-2.0) % Neut # (Auto) 15.3 H (1.8-7.0) K/uL Lymph # (Auto) 0.5 L (1.0-4.3) K/uL [place] # (Auto) 0.6 (0.0-0.8) K/uL Eos # (Auto) 0.0 (0.0-0.7) K/uL Baso # (Auto) 0.0 (0.0-0.2) K/uL Neutrophils % (Manual) (42-75) % Band Neutrophils % (0-2) % Lymphocytes % (Manual) (20-50) % Monocytes % (Manual) (0-10) % Platelet Estimate (NORMAL) Hypochromasia (manual) Anisocytosis (manual) Tear Drop Cells Ovalocytes Sodium 138 (132-148) mmol/l Potassium 4.1 (3.6-5.0) MMOL/L Chloride 96 L (98-107) mmol/L Carbon Dioxide 34 H (22-30) mmol/L Anion Gap 12 (10-20) BUN 34 H (9-20) mg/dl Creatinine 0.9 (0.8-1.5) mg/dl Est GFR ( Amer) > 60 Est GFR (Non-Af Amer) > 60 POC Glucose (mg/dL) 133 H (65-110) mg/dL Random Glucose 157 H (75-110) mg/dL Calcium 8.4 (8.4-10.2) mg/dL 11/17/17 11/17/17 11/17/17 Range/Units 22:11 16:31 11:31 WBC (4.8-10.8) K/uL RBC (4.40-5.90) Mil/uL Hgb (12.0-18.0) g/dL Hct (35.0-51.0) % MCV (80.0-94.0) fl MCH (27.0-31.0) pg MCHC (33.0-37.0) g/dL RDW (11.5-14.5) % Plt Count (130-400) K/uL MPV (7.2-11.7) fl Neut % (Auto) (50.0-75.0) % Lymph % (Auto) (20.0-40.0) % [place] % (Auto) (0.0-10.0) % Eos % (Auto) (0.0-4.0) % Baso % (Auto) (0.0-2.0) % Neut # (Auto) (1.8-7.0) K/uL Lymph # (Auto) (1.0-4.3) K/uL [place] # (Auto) (0.0-0.8) K/uL Eos # (Auto) (0.0-0.7) K/uL Baso # (Auto) (0.0-0.2) K/uL Neutrophils % (Manual) (42-75) % Band Neutrophils % (0-2) % Lymphocytes % (Manual) (20-50) % Monocytes % (Manual) (0-10) % Platelet Estimate (NORMAL) Hypochromasia (manual) Anisocytosis (manual) Tear Drop Cells Ovalocytes Sodium (132-148) mmol/l Potassium (3.6-5.0) MMOL/L Chloride (98-107) mmol/L Carbon Dioxide (22-30) mmol/L Anion Gap (10-20) BUN (9-20) mg/dl Creatinine (0.8-1.5) mg/dl Est GFR ( Amer) Est GFR (Non-Af Amer) POC Glucose (mg/dL) 235 H 176 H 231 H (65-110) mg/dL Random Glucose (75-110) mg/dL Calcium (8.4-10.2) mg/dL 11/17/17 Range/Units 04:28 WBC (4.8-10.8) K/uL RBC (4.40-5.90) Mil/uL Hgb (12.0-18.0) g/dL Hct (35.0-51.0) % MCV (80.0-94.0) fl MCH (27.0-31.0) pg MCHC (33.0-37.0) g/dL RDW (11.5-14.5) % Plt Count (130-400) K/uL MPV (7.2-11.7) fl Neut % (Auto) (50.0-75.0) % Lymph % (Auto) (20.0-40.0) % [place] % (Auto) (0.0-10.0) % Eos % (Auto) (0.0-4.0) % Baso % (Auto) (0.0-2.0) % Neut # (Auto) (1.8-7.0) K/uL Lymph # (Auto) (1.0-4.3) K/uL [place] # (Auto) (0.0-0.8) K/uL Eos # (Auto) (0.0-0.7) K/uL Baso # (Auto) (0.0-0.2) K/uL Neutrophils % (Manual) 96 H (42-75) % Band Neutrophils % 1 (0-2) % Lymphocytes % (Manual) 2 L (20-50) % Monocytes % (Manual) 1 (0-10) % Platelet Estimate Normal (NORMAL) Hypochromasia (manual) Slight Anisocytosis (manual) Slight Tear Drop Cells Slight Ovalocytes Slight Sodium (132-148) mmol/l Potassium (3.6-5.0) MMOL/L Chloride (98-107) mmol/L Carbon Dioxide (22-30) mmol/L Anion Gap (10-20) BUN (9-20) mg/dl Creatinine (0.8-1.5) mg/dl Est GFR ( Amer) Est GFR (Non-Af Amer) POC Glucose (mg/dL) (65-110) mg/dL Random Glucose (75-110) mg/dL Calcium (8.4-10.2) mg/dL Laboratory Results - last 24 hr 11/17/17 11/17/17 11/17/17 04:28 11:31 16:31 WBC RBC Hgb Hct MCV MCH MCHC RDW Plt Count MPV Neut % (Auto) Lymph % (Auto) [place] % (Auto) Eos % (Auto) Baso % (Auto) Neut # (Auto) Lymph # (Auto) [place] # (Auto) Eos # (Auto) Baso # (Auto) Neutrophils % (Manual) 96 H Band Neutrophils % 1 Lymphocytes % (Manual) 2 L Monocytes % (Manual) 1 Platelet Estimate Normal Hypochromasia (manual) Slight Anisocytosis (manual) Slight Tear Drop Cells Slight Ovalocytes Slight Sodium Potassium Chloride Carbon Dioxide Anion Gap BUN Creatinine Est GFR ( Amer) Est GFR (Non-Af Amer) POC Glucose (mg/dL) 231 H 176 H Random Glucose Calcium 11/17/17 11/18/17 11/18/17 22:11 05:30 05:30 WBC 16.4 H RBC 3.84 L Hgb 11.2 L Hct 35.1 MCV 91.4 MCH 29.1 MCHC 31.8 L RDW 15.5 H Plt Count 226 MPV 8.0 Neut % (Auto) 93.2 H Lymph % (Auto) 2.8 L [place] % (Auto) 3.8 Eos % (Auto) 0.0 Baso % (Auto) 0.2 Neut # (Auto) 15.3 H Lymph # (Auto) 0.5 L [place] # (Auto) 0.6 Eos # (Auto) 0.0 Baso # (Auto) 0.0 Neutrophils % (Manual) Band Neutrophils % Lymphocytes % (Manual) Monocytes % (Manual) Platelet Estimate Hypochromasia (manual) Anisocytosis (manual) Tear Drop Cells Ovalocytes Sodium 138 Potassium 4.1 Chloride 96 L Carbon Dioxide 34 H Anion Gap 12 BUN 34 H Creatinine 0.9 Est GFR ( Amer) > 60 Est GFR (Non-Af Amer) > 60 POC Glucose (mg/dL) 235 H Random Glucose 157 H Calcium 8.4 11/18/17 06:14 WBC RBC Hgb Hct MCV MCH MCHC RDW Plt Count MPV Neut % (Auto) Lymph % (Auto) [place] % (Auto) Eos % (Auto) Baso % (Auto) Neut # (Auto) Lymph # (Auto) [place] # (Auto) Eos # (Auto) Baso # (Auto) Neutrophils % (Manual) Band Neutrophils % Lymphocytes % (Manual) Monocytes % (Manual) Platelet Estimate Hypochromasia (manual) Anisocytosis (manual) Tear Drop Cells Ovalocytes Sodium Potassium Chloride Carbon Dioxide Anion Gap BUN Creatinine Est GFR ( Amer) Est GFR (Non-Af Amer) POC Glucose (mg/dL) 133 H Random Glucose Calcium Fingerstick Blood Sugar Results: 133 Review of Systems - Constitutional Constitutional: absent: Fever, Chills, Sweats - Cardiovascular Cardiovascular: absent: Chest Pain, Chest Pain at Rest, Chest Pain with Activity - Respiratory Respiratory: Cough, Dyspnea, Dyspnea on Exertion. absent: Hemoptysis, Wheezing - Gastrointestinal Gastrointestinal: absent: Abdominal Pain, Hematemesis Critical Care Progress Note - Extremities/Vascular Does the Patient have a Central Venous Catheter?: Yes Does the Patient need a Central Venous Catheter?: Yes Does the Patient have a Weaver Catheter?: No Does the Patient need a Weaver Catheter?: No - Nutrition Nutrition: Nutrition Category Date Time Status Dysphagia/Modified Consistency Diet [DIET] Diets 11/13/17 Breakfast Active Assessment/Plan (1) Acute respiratory failure with hypoxia Current Visit: Yes Status: Acute Priority: High Comment: Patient with Acute Hypoxemic Resp failure sec to Bilateral Pneumonia, Successfully extubated, BP has been stable Afebrile Sitting comfortable in chair using I Spirometry Denies any chest pain, SOB or Palpitations Patient refused to wear bipap, Doing well on 3L nasal cannula (2) Atrial fibrillation with RVR Current Visit: Yes Status: Acute Priority: High Comment: HR better controlled Continue coreg and eliquis (3) CHF (congestive heart failure) Current Visit: Yes Status: Acute Comment: Continue diuresis, No chest pain, less dyspnea Lasix 20 mg IVP BID optimize fluid status Cardiology Evaluation (4) COPD exacerbation Current Visit: Yes Status: Acute Priority: High Comment: IV Solumedrol 40 mg IVP Q12 YESENIA Albuterol/Ipratropium INH RQ6 Use of BIPAP as needed Pulmonary consult appreciated (5) Severe sepsis Current Visit: Yes Status: Acute Comment: Continue Ciprofloxacin 400 mg IVPB Q12 YESENIA (6) Staphylococcal pneumonia Current Visit: Yes Status: Acute - Assessment and Plan (Free Text) Assessment: # GI/DVT PPX # Stress Ulcer prophylaxis with Protonix 40 mg IVP QD # DVT prophylaxis with SCD, Eliquis 2.5 mg PO BID # Code Status: Full code Total critical care time 32 minutes
[2017-11-18] MEDS ORDERED: methylPREDNISolone 30 MG in Sodium Chloride 0.9% 50 ML IVPB SCH (09:00)
[2017-11-18] MEDS: Multi Vitamins 15 mL UD Oral Solution PO SCH (10:03)
[2017-11-18] MEDS: Pantoprazole 40 mg EC Tab PO SCH (10:03)
[2017-11-18] MEDS: MethylPREDNISolone 40 mg Vial IVP SCH ×2 (10:04→22:23)
[2017-11-18] MEDS: Ciprofloxacin 400mg/200ml D5W 400 MG/200 ML BAG IVPB SCH ×2 (10:07→22:05)
[2017-11-18 10:27] LABS: ANISOCYTOSIS SLIGHT; HYPOCHROMIC SLIGHT; LYMPHOCYTE 1 % (20-50); MONOCYTE 3 % (0-10); NEUTROPHIL 96 % (42-75); PLATELET ESTIMATE NORMAL (NORMAL); TOTAL CELLS COUNTED 100
[2017-11-18 10:28] LABS: PLATELET CLUMPS PRESENT
--- NOTE | 2017-11-18 15:59 | CP.PCM.PN ---
Subjective - Date & Time of Evaluation Date of Evaluation: 11/18/17 Time of Evaluation: 10:00 - Subjective Subjective: F/U Respiratory Distress. Pt with occasional dry cough, no SOB, no chest congestion, no CP. Objective - Vital Signs/Intake and Output Vital Signs (last 24 hours): Temp Pulse Resp BP Pulse Ox 97.4 F L 91 H 19 109/28 L 100 11/18/17 12:00 11/18/17 12:00 11/18/17 12:00 11/18/17 12:00 11/18/17 12:00 Intake and Output: 11/18/17 11/18/17 06:59 18:59 Intake Total 224 Output Total 1300 Balance -1076 - Medications Medications: Current Medications Acetazolamide (Diamox 250 Mg Tab) 250 mg PO BID [facility] Last Admin: 11/18/17 10:02 Dose: Not Given Albuterol/Ipratropium (Duoneb 3 Mg/0.5 Mg (3 Ml) Ud) 3 ml INH RQ4 [facility] Last Admin: 11/18/17 15:14 Dose: 3 ml Apixaban (Eliquis) 2.5 mg PO BID YESENIA PRN Reason: Protocol Last Admin: 11/18/17 10:03 Dose: Not Given Ascorbic Acid (Vitamin C 500 Mg Tab) 1,000 mg PO DAILY [facility] Last Admin: 11/18/17 10:03 Dose: Not Given Carvedilol (Coreg) 12.5 mg PO Q12 YESENIA Last Admin: 11/18/17 10:02 Dose: Not Given Furosemide (Lasix) 20 mg IVP BID [facility] Last Admin: 11/18/17 10:06 Dose: 20 mg Ciprofloxacin (Cipro 400mg/200ml Dsw) 400 mg in 200 mls @ 200 mls/hr IVPB Q12 YESENIA PRN Reason: Protocol Last Admin: 11/18/17 10:07 Dose: 200 mls/hr Insulin Human Lispro (Humalog) 0 units SC Q6H YESENIA PRN Reason: Protocol Last Admin: 11/18/17 06:15 Dose: Not Given Methylprednisolone (Solu-Medrol) 30 mg IVP Q12 YESENIA Last Admin: 11/18/17 10:04 Dose: 30 mg Multivitamins/Vitamin C (Multi-Delyn Liquid) 15 ml PO DAILY YESENIA Last Admin: 11/18/17 10:03 Dose: Not Given Pantoprazole Sodium (Protonix Ec Tab) 40 mg PO DAILY [facility] Last Admin: 11/18/17 10:03 Dose: Not Given Ramipril (Altace) 2.5 mg PO BID [facility] Last Admin: 11/18/17 10:01 Dose: Not Given Thiamine HCl (Vitamin B1 Tab) 100 mg PO DAILY [facility] Last Admin: 11/18/17 10:03 Dose: Not Given - Labs Labs: 11/18/17 05:30 11/18/17 05:30 PT 15.2 Seconds (9.8-13.1) H 11/14/17 04:20 INR 1.4 (0.9-1.2) H 11/14/17 04:20 APTT 34.8 Seconds (25.6-37.1) 11/14/17 04:20 - Constitutional Appears: Chronically Ill - Head Exam Head Exam: NORMAL INSPECTION - Eye Exam Eye Exam: PERRL - ENT Exam ENT Exam: Normal Exam - Neck Exam Neck Exam: Normal Inspection - Respiratory Exam Respiratory Exam: Decreased Breath Sounds (b/l) - Cardiovascular Exam Cardiovascular Exam: Irregular Rhythm - GI/Abdominal Exam GI & Abdominal Exam: Soft, Normal Bowel Sounds - Extremities Exam Extremities Exam: Normal Inspection - Back Exam Back Exam: NORMAL INSPECTION - Neurological Exam Neurological Exam: Alert Additional comments: No focal motor/sensory deficit, generalized weakness. - Psychiatric Exam Psychiatric exam: Anxious - Skin Skin Exam: Warm Assessment and Plan (1) Respiratory failure Status: Acute (2) Atrial fibrillation with RVR Status: Acute (3) COPD exacerbation Status: Acute (4) Staphylococcal pneumonia Status: Acute (5) CHF (congestive heart failure) Status: Acute (6) Sepsis Status: Acute (7) Metabolic alkalosis Status: Acute - Assessment and Plan (Free Text) Plan: Pt had Swallow eval, recommendation; Continue the same puree diet, thicken fluid and to have Barium Swallow, continue rest of tx.
[2017-11-19] MEDS: Insulin Lispro (humaLOG) 100 Units/ml Inj SC SCH ×5 (00:16→17:30)
[2017-11-19] MEDS: Albuterol-Ipratrop 3 mg / 0.5 (3 ml) UD INH SCH ×6 (05:21→23:56)
[2017-11-19 05:29] LABS: BASO % 0.1 % (0.0-2.0); EOS % 0.2 % (0.0-4.0); HEMOGLOBIN 11.7 g/dL (12.0-18.0); LYMPH # 0.4 K/uL (1.0-4.3); LYMPH % 3.6 % (20.0-40.0); MEAN CELL VOLUME 92.2 fl (80.0-94.0); MEAN CORPUSCULAR HEMOGLOBIN 28.9 pg (27.0-31.0); MEAN CORPUSCULAR HGB CONC 31.3 g/dL (33.0-37.0); MONO # 0.2 K/uL (0.0-0.8); MONO % 1.6 % (0.0-10.0); NEUT # 10.2 K/uL (1.8-7.0); NEUT % 94.5 % (50.0-75.0); NRBC % 0.1 % (0.0-0.0); PLATELET COUNT 201 K/uL (130-400); RBC 4.05 Mil/uL (4.40-5.90); RED CELL DISTRIBUTION WIDTH 16.6 % (11.5-14.5); WHITE BLOOD COUNT 10.8 K/uL (4.8-10.8)
[2017-11-19 05:37] LABS: BLOOD UREA NITROGEN 35 mg/dl (9-20); CALCIUM 8.4 mg/dL (8.4-10.2); GFR AFRICAN-AMERICAN > 60; GFR NON-AFRICAN AMERICAN > 60
--- NOTE | 2017-11-19 08:44 | CP.CCUPN ---
CCU Subjective - Physician Review Events Since Last Encounter (Free Text): 11/19/17 12:54 The patient was Seen/interviewed and examined by me at the bedside during ICU round, Medical records reviewed and Management issues were discussed and formulated with the house staff. Events reviewed Patient with Acute Hypoxemic Resp failure sec to Bilateral Pneumonia, Successfully extubated, BP has been stable Afebrile A-Fib on the monitor, HR better controlled Coreg on Hold due to borderline BP Digoxin 0.125 mcg daily added as per cardiology Seen by physical therapy Sitting comfortable in chair using I Spirometry Pt Alert, follows commands Denies any chest pain, SOB or Palpitations Patient refused to wear bipap, Doing well on 3L nasal cannula Last 24H I&O 774/2350 Scheduled for Video Swallow this afternoon This morning labs revealed improved Leucocytosis 16.4-->10.8, Stable renal function CCU Objective - Vital Signs / Intake & Output Vital Signs (Last 4 hours): Vital Signs Temp Pulse Resp BP Pulse Ox 11/19/17 08:00 97.6 F 52 L 15 88/56 L 96 11/19/17 06:00 80 12 106/68 100 11/19/17 05:00 81 Intake and Output (Last 8hrs): Intake & Output 11/18/17 11/19/17 11/19/17 22:59 06:59 14:59 Intake Total 280 70 Output Total 200 300 Balance 80 -230 Intake: IV 30 40 Intake, Piggyback 200 Oral 50 30 Output: Urine 200 300 Condom 200 300 - Physical Exam Head: Positive for: Atraumatic, Normocephalic Pupils: Positive for: PERRL Extroacular Muscles: Positive for: EOMI Conjunctiva: Negative for: Icteric Mouth: Positive for: Moist Mucous Membranes Neck: Positive for: Normal Range of Motion. Negative for: JVD Respiratory/Chest: Positive for: Good Air Exchange, Decreased Breath Sounds. Negative for: Rales, Rhonchi Cardiovascular: Positive for: Normal S1, S2, Irregular Rhythm, Peripheal Pulses Present Abdomen: Positive for: Normal Bowel Sounds. Negative for: Tenderness, Distention, Mass/Organomegaly Back: Negative for: CVA Tenderness Upper Extremity: Positive for: Normal Inspection, NORMAL PULSES, Capillary Refill < 2s Lower Extremity: Positive for: Normal Inspection, NORMAL PULSES. Negative for: CALF TENDERNESS, Cyanosis Neurological: Positive for: Motor Func Grossly Intact, Normal Sensory Function, Other (sedatd on ventilator) Skin: Positive for: Warm, Dry. Negative for: Rashes Psychiatric: Positive for: Alert, Oriented x 3 - Medications Active Medications: Active Medications Generic Name Dose Route Start Last Admin Trade Name Josephq PRN Reason Stop Dose Admin Acetazolamide 250 mg 11/16/17 17:00 11/18/17 17:20 Diamox 250 Mg Tab PO Not Given BID YESENIA Albuterol/Ipratropium 3 ml 11/09/17 00:00 11/19/17 07:40 Duoneb 3 Mg/0.5 Mg (3 Ml) Ud INH 3 ml RQ4 YESENIA Administration Apixaban 2.5 mg 11/11/17 09:00 11/18/17 17:24 Eliquis PO 2.5 mg BID YESENIA Administration Protocol Ascorbic Acid 1,000 mg 11/09/17 09:15 11/18/17 10:03 Vitamin C 500 Mg Tab PO Not Given DAILY YESENIA Carvedilol 12.5 mg 11/13/17 09:00 11/18/17 22:11 Coreg PO Not Given Q12 YESENIA Furosemide 20 mg 11/16/17 17:00 11/18/17 17:22 Lasix IVP Not Given BID YESENIA Ciprofloxacin 400 mg in 200 mls @ 200 mls/hr 11/15/17 21:00 11/18/17 22:05 Cipro 400mg/200ml Dsw IVPB 200 mls/hr Q12 YESENIA Administration Protocol Insulin Human Lispro 0 units 11/09/17 12:00 11/19/17 06:46 Humalog SC Not Given Q6H [facility] Protocol Methylprednisolone 30 mg 11/18/17 09:00 11/18/17 22:23 Solu-Medrol IVP 30 mg Q12 YESENIA Administration Multivitamins/Vitamin C 15 ml 11/09/17 09:00 11/18/17 10:03 Multi-Delyn Liquid PO Not Given DAILY [facility] Pantoprazole Sodium 40 mg 11/13/17 09:00 11/18/17 10:03 Protonix Ec Tab PO Not Given DAILY YESENIA Ramipril 2.5 mg 11/16/17 17:00 11/18/17 17:20 Altace PO Not Given BID [facility] Thiamine HCl 100 mg 11/09/17 09:00 11/18/17 10:03 Vitamin B1 Tab PO Not Given DAILY YESENIA - Patient Studies Lab Studies: Lab Studies 11/19/17 11/19/17 11/19/17 Range/Units 06:09 04:20 04:20 WBC 10.8 (4.8-10.8) K/uL RBC 4.05 L (4.40-5.90) Mil/uL Hgb 11.7 L (12.0-18.0) g/dL Hct 37.3 (35.0-51.0) % MCV 92.2 (80.0-94.0) fl MCH 28.9 (27.0-31.0) pg MCHC 31.3 L (33.0-37.0) g/dL RDW 16.6 H (11.5-14.5) % Plt Count 201 (130-400) K/uL MPV 8.0 (7.2-11.7) fl Neut % (Auto) 94.5 H (50.0-75.0) % Lymph % (Auto) 3.6 L (20.0-40.0) % [place] % (Auto) 1.6 (0.0-10.0) % Eos % (Auto) 0.2 (0.0-4.0) % Baso % (Auto) 0.1 (0.0-2.0) % Neut # (Auto) 10.2 H (1.8-7.0) K/uL Lymph # (Auto) 0.4 L (1.0-4.3) K/uL [place] # (Auto) 0.2 (0.0-0.8) K/uL Eos # (Auto) 0.0 (0.0-0.7) K/uL Baso # (Auto) 0.0 (0.0-0.2) K/uL Neutrophils % (Manual) (42-75) % Lymphocytes % (Manual) (20-50) % Monocytes % (Manual) (0-10) % Platelet Estimate (NORMAL) Plt Clumps, EDTA Hypochromasia (manual) Anisocytosis (manual) Sodium 138 (132-148) mmol/l Potassium 4.4 (3.6-5.0) MMOL/L Chloride 99 (98-107) mmol/L Carbon Dioxide 34 H (22-30) mmol/L Anion Gap 9 L (10-20) BUN 35 H (9-20) mg/dl Creatinine 0.9 (0.8-1.5) mg/dl Est GFR ( Amer) > 60 Est GFR (Non-Af Amer) > 60 POC Glucose (mg/dL) 171 H (65-110) mg/dL Random Glucose 203 H (75-110) mg/dL Calcium 8.4 (8.4-10.2) mg/dL 11/19/17 11/18/17 11/18/17 Range/Units 00:57 17:14 11:00 WBC (4.8-10.8) K/uL RBC (4.40-5.90) Mil/uL Hgb (12.0-18.0) g/dL Hct (35.0-51.0) % MCV (80.0-94.0) fl MCH (27.0-31.0) pg MCHC (33.0-37.0) g/dL RDW (11.5-14.5) % Plt Count (130-400) K/uL MPV (7.2-11.7) fl Neut % (Auto) (50.0-75.0) % Lymph % (Auto) (20.0-40.0) % [place] % (Auto) (0.0-10.0) % Eos % (Auto) (0.0-4.0) % Baso % (Auto) (0.0-2.0) % Neut # (Auto) (1.8-7.0) K/uL Lymph # (Auto) (1.0-4.3) K/uL [place] # (Auto) (0.0-0.8) K/uL Eos # (Auto) (0.0-0.7) K/uL Baso # (Auto) (0.0-0.2) K/uL Neutrophils % (Manual) (42-75) % Lymphocytes % (Manual) (20-50) % Monocytes % (Manual) (0-10) % Platelet Estimate (NORMAL) Plt Clumps, EDTA Hypochromasia (manual) Anisocytosis (manual) Sodium (132-148) mmol/l Potassium (3.6-5.0) MMOL/L Chloride (98-107) mmol/L Carbon Dioxide (22-30) mmol/L Anion Gap (10-20) BUN (9-20) mg/dl Creatinine (0.8-1.5) mg/dl Est GFR ( Amer) Est GFR (Non-Af Amer) POC Glucose (mg/dL) 169 H 169 H 178 H (65-110) mg/dL Random Glucose (75-110) mg/dL Calcium (8.4-10.2) mg/dL 11/18/17 Range/Units 05:30 WBC (4.8-10.8) K/uL RBC (4.40-5.90) Mil/uL Hgb (12.0-18.0) g/dL Hct (35.0-51.0) % MCV (80.0-94.0) fl MCH (27.0-31.0) pg MCHC (33.0-37.0) g/dL RDW (11.5-14.5) % Plt Count (130-400) K/uL MPV (7.2-11.7) fl Neut % (Auto) (50.0-75.0) % Lymph % (Auto) (20.0-40.0) % [place] % (Auto) (0.0-10.0) % Eos % (Auto) (0.0-4.0) % Baso % (Auto) (0.0-2.0) % Neut # (Auto) (1.8-7.0) K/uL Lymph # (Auto) (1.0-4.3) K/uL [place] # (Auto) (0.0-0.8) K/uL Eos # (Auto) (0.0-0.7) K/uL Baso # (Auto) (0.0-0.2) K/uL Neutrophils % (Manual) 96 H (42-75) % Lymphocytes % (Manual) 1 L (20-50) % Monocytes % (Manual) 3 (0-10) % Platelet Estimate Normal (NORMAL) Plt Clumps, EDTA Present Hypochromasia (manual) Slight Anisocytosis (manual) Slight Sodium (132-148) mmol/l Potassium (3.6-5.0) MMOL/L Chloride (98-107) mmol/L Carbon Dioxide (22-30) mmol/L Anion Gap (10-20) BUN (9-20) mg/dl Creatinine (0.8-1.5) mg/dl Est GFR ( Amer) Est GFR (Non-Af Amer) POC Glucose (mg/dL) (65-110) mg/dL Random Glucose (75-110) mg/dL Calcium (8.4-10.2) mg/dL Laboratory Results - last 24 hr 11/18/17 11/18/17 11/18/17 05:30 11:00 17:14 WBC RBC Hgb Hct MCV MCH MCHC RDW Plt Count MPV Neut % (Auto) Lymph % (Auto) [place] % (Auto) Eos % (Auto) Baso % (Auto) Neut # (Auto) Lymph # (Auto) [place] # (Auto) Eos # (Auto) Baso # (Auto) Neutrophils % (Manual) 96 H Lymphocytes % (Manual) 1 L Monocytes % (Manual) 3 Platelet Estimate Normal Plt Clumps, EDTA Present Hypochromasia (manual) Slight Anisocytosis (manual) Slight Sodium Potassium Chloride Carbon Dioxide Anion Gap BUN Creatinine Est GFR ( Amer) Est GFR (Non-Af Amer) POC Glucose (mg/dL) 178 H 169 H Random Glucose Calcium 11/19/17 11/19/17 11/19/17 00:57 04:20 04:20 WBC 10.8 RBC 4.05 L Hgb 11.7 L Hct 37.3 MCV 92.2 MCH 28.9 MCHC 31.3 L RDW 16.6 H Plt Count 201 MPV 8.0 Neut % (Auto) 94.5 H Lymph % (Auto) 3.6 L [place] % (Auto) 1.6 Eos % (Auto) 0.2 Baso % (Auto) 0.1 Neut # (Auto) 10.2 H Lymph # (Auto) 0.4 L [place] # (Auto) 0.2 Eos # (Auto) 0.0 Baso # (Auto) 0.0 Neutrophils % (Manual) Lymphocytes % (Manual) Monocytes % (Manual) Platelet Estimate Plt Clumps, EDTA Hypochromasia (manual) Anisocytosis (manual) Sodium 138 Potassium 4.4 Chloride 99 Carbon Dioxide 34 H Anion Gap 9 L BUN 35 H Creatinine 0.9 Est GFR ( Amer) > 60 Est GFR (Non-Af Amer) > 60 POC Glucose (mg/dL) 169 H Random Glucose 203 H Calcium 8.4 11/19/17 06:09 WBC RBC Hgb Hct MCV MCH MCHC RDW Plt Count MPV Neut % (Auto) Lymph % (Auto) [place] % (Auto) Eos % (Auto) Baso % (Auto) Neut # (Auto) Lymph # (Auto) [place] # (Auto) Eos # (Auto) Baso # (Auto) Neutrophils % (Manual) Lymphocytes % (Manual) Monocytes % (Manual) Platelet Estimate Plt Clumps, EDTA Hypochromasia (manual) Anisocytosis (manual) Sodium Potassium Chloride Carbon Dioxide Anion Gap BUN Creatinine Est GFR ( Amer) Est GFR (Non-Af Amer) POC Glucose (mg/dL) 171 H Random Glucose Calcium Fingerstick Blood Sugar Results: 171 Critical Care Progress Note - Nutrition Nutrition: Nutrition Category Date Time Status Dysphagia/Modified Consistency Diet [DIET] Diets 11/13/17 Breakfast Active Assessment/Plan (1) Acute respiratory failure with hypoxia Current Visit: Yes Status: Acute Priority: High Comment: Patient with Acute Hypoxemic Resp failure sec to Bilateral Pneumonia, Successfully extubated, BP has been stable Afebrile Sitting comfortable in chair using I Spirometry Denies any chest pain, SOB or Palpitations Patient refused to wear bipap, Doing well on 3L nasal cannula (2) Atrial fibrillation with RVR Current Visit: Yes Status: Acute Priority: High Comment: HR better controlled Continue eliquis coreg on Hold due to boarderline BP Digoxin 0.125 mcg po daily added as per cardiology (3) CHF (congestive heart failure) Current Visit: Yes Status: Acute Comment: Continue diuresis, No chest pain, less dyspnea Lasix 20 mg IVP BID optimize fluid status Cardiology Evaluation (4) COPD exacerbation Current Visit: Yes Status: Acute Priority: High Comment: IV Solumedrol 40 mg IVP Q12 YESENIA Albuterol/Ipratropium INH RQ6 Use of BIPAP as needed Pulmonary consult appreciated (5) Severe sepsis Current Visit: Yes Status: Acute Comment: Continue Ciprofloxacin 400 mg IVPB Q12 YESENIA (6) Staphylococcal pneumonia Current Visit: Yes Status: Acute
[2017-11-19] MEDS: Multi Vitamins 15 mL UD Oral Solution PO SCH (10:06)
[2017-11-19] MEDS: Pantoprazole 40 mg EC Tab PO SCH (10:07)
[2017-11-19] MEDS: MethylPREDNISolone 40 mg Vial IVP SCH ×2 (10:07→21:09)
[2017-11-19 10:15] LABS: ANISOCYTOSIS SLIGHT; HYPOCHROMIC SLIGHT; LYMPHOCYTE 5 % (20-50); MONOCYTE 2 % (0-10); NEUTROPHIL 93 % (42-75); PLATELET ESTIMATE NORMAL (NORMAL); TOTAL CELLS COUNTED 100
[2017-11-19 10:17] LABS: OVALOCYTES SLIGHT
[2017-11-19] MEDS: Ciprofloxacin 400mg/200ml D5W 400 MG/200 ML BAG IVPB SCH ×2 (10:18→21:10)
--- NOTE | 2017-11-19 12:01 | CP.PCM.PN ---
Subjective - Date & Time of Evaluation Date of Evaluation: 11/19/17 Time of Evaluation: 11:59 - Subjective Subjective: sitting on chair feeling fine HR uncontrolled coreg held 2' to low BP Objective - Vital Signs/Intake and Output Vital Signs (last 24 hours): Temp Pulse Resp BP Pulse Ox 97.6 F 87 15 90/50 L 96 11/19/17 08:00 11/19/17 10:05 11/19/17 08:00 11/19/17 10:10 11/19/17 08:00 Intake and Output: 11/19/17 11/19/17 06:59 18:59 Intake Total 350 Output Total 500 Balance -150 - Medications Medications: Current Medications Acetazolamide (Diamox 250 Mg Tab) 250 mg PO BID [facility] Last Admin: 11/19/17 10:06 Dose: 250 mg Albuterol/Ipratropium (Duoneb 3 Mg/0.5 Mg (3 Ml) Ud) 3 ml INH RQ4 YESENIA Last Admin: 11/19/17 11:28 Dose: 3 ml Apixaban (Eliquis) 2.5 mg PO BID YESENIA PRN Reason: Protocol Last Admin: 11/19/17 10:16 Dose: 2.5 mg Ascorbic Acid (Vitamin C 500 Mg Tab) 1,000 mg PO DAILY YESENIA Last Admin: 11/19/17 10:07 Dose: 1,000 mg Furosemide (Lasix) 20 mg IVP BID [facility] Last Admin: 11/19/17 10:10 Dose: Not Given Ciprofloxacin (Cipro 400mg/200ml Dsw) 400 mg in 200 mls @ 200 mls/hr IVPB Q12 YESENIA PRN Reason: Protocol Last Admin: 11/19/17 10:18 Dose: 200 mls/hr Insulin Human Lispro (Humalog) 0 units SC Q6H YESENIA PRN Reason: Protocol Last Admin: 11/19/17 06:46 Dose: Not Given Methylprednisolone (Solu-Medrol) 30 mg IVP Q12 YESENIA Last Admin: 11/19/17 10:07 Dose: 30 mg Metoprolol Tartrate (Lopressor) 25 mg PO Q12 [facility] Multivitamins/Vitamin C (Multi-Delyn Liquid) 15 ml PO DAILY YESENIA Last Admin: 11/19/17 10:06 Dose: 15 ml Pantoprazole Sodium (Protonix Ec Tab) 40 mg PO DAILY YESENIA Last Admin: 11/19/17 10:07 Dose: 40 mg Ramipril (Altace) 2.5 mg PO BID [facility] Last Admin: 11/19/17 10:04 Dose: Not Given Thiamine HCl (Vitamin B1 Tab) 100 mg PO DAILY [facility] Last Admin: 11/19/17 10:07 Dose: 100 mg - Labs Labs: 11/19/17 04:20 11/19/17 04:20 PT 15.2 Seconds (9.8-13.1) H 11/14/17 04:20 INR 1.4 (0.9-1.2) H 11/14/17 04:20 APTT 34.8 Seconds (25.6-37.1) 11/14/17 04:20 - Constitutional Appears: Well - Head Exam Head Exam: ATRAUMATIC, NORMAL INSPECTION, NORMOCEPHALIC - Eye Exam Eye Exam: EOMI, Normal appearance, PERRL Pupil Exam: NORMAL ACCOMODATION, PERRL - ENT Exam ENT Exam: Mucous Membranes Moist, Normal Exam - Neck Exam Neck Exam: Full ROM, Normal Inspection. absent: Lymphadenopathy - Respiratory Exam Respiratory Exam: Clear to Ausculation Bilateral, Rales, NORMAL BREATHING PATTERN - Cardiovascular Exam Cardiovascular Exam: Irregular Rhythm, +S1, +S2, Murmur - GI/Abdominal Exam GI & Abdominal Exam: Soft, Normal Bowel Sounds. absent: Tenderness - Extremities Exam Extremities Exam: Full ROM, Normal Capillary Refill, Normal Inspection. absent : Joint Swelling, Pedal Edema - Back Exam Back Exam: NORMAL INSPECTION - Neurological Exam Neurological Exam: Alert, Awake, CN II-XII Intact, Normal Gait, Oriented x3 - Psychiatric Exam Psychiatric exam: Normal Affect, Normal Mood - Skin Skin Exam: Dry, Intact, Normal Color, Warm Assessment and Plan (1) Atrial fibrillation with RVR Assessment & Plan: dc coreg and swithc to metoprolol 25mg bid add digoxin 0.125 mcg po daily cont eliquis Status: Acute (2) CHF (congestive heart failure) Assessment & Plan: ischemic evaluation for CHF once infx resolves cont lasix and bb Status: Acute (3) COPD exacerbation Status: Acute (4) Pneumonia Status: Deleted (5) Respiratory failure Status: Acute (6) Sepsis Status: Acute (7) Severe sepsis Status: Acute
[2017-11-19] MEDS: Digoxin 125 mcg (0.125 mg) Tab PO SCH (13:00)
[2017-11-19] MEDS ORDERED: Barium Sulfate Susp 0.1% w/v, 0.1% w/w 450 mL Bottle PO ONE (13:44)
--- NOTE | 2017-11-19 15:18 | CP.PCM.PN ---
Subjective - Date & Time of Evaluation Date of Evaluation: 11/19/17 Time of Evaluation: 09:30 - Subjective Subjective: F/U Respiratory failure No SOB , no Chest congestion Objective - Vital Signs/Intake and Output Vital Signs (last 24 hours): Temp Pulse Resp BP Pulse Ox 97.8 F 102 H 26 H 79/52 L 98 11/19/17 12:00 11/19/17 12:00 11/19/17 12:00 11/19/17 12:00 11/19/17 12:00 Intake and Output: 11/19/17 11/19/17 06:59 18:59 Intake Total 350 Output Total 500 Balance -150 - Medications Medications: Current Medications Acetazolamide (Diamox 250 Mg Tab) 250 mg PO BID [facility] Last Admin: 11/19/17 10:06 Dose: 250 mg Albuterol/Ipratropium (Duoneb 3 Mg/0.5 Mg (3 Ml) Ud) 3 ml INH RQ4 [facility] Last Admin: 11/19/17 11:28 Dose: 3 ml Apixaban (Eliquis) 2.5 mg PO BID YESENIA PRN Reason: Protocol Last Admin: 11/19/17 10:16 Dose: 2.5 mg Ascorbic Acid (Vitamin C 500 Mg Tab) 1,000 mg PO DAILY YESENIA Last Admin: 11/19/17 10:07 Dose: 1,000 mg Digoxin (Digoxin) 0.125 mg PO DAILY [facility] Furosemide (Lasix) 20 mg IVP BID [facility] Last Admin: 11/19/17 10:10 Dose: Not Given Ciprofloxacin (Cipro 400mg/200ml Dsw) 400 mg in 200 mls @ 200 mls/hr IVPB Q12 YESENIA PRN Reason: Protocol Last Admin: 11/19/17 10:18 Dose: 200 mls/hr Insulin Human Lispro (Humalog) 0 units SC Q6H YESENIA PRN Reason: Protocol Last Admin: 11/19/17 06:46 Dose: Not Given Methylprednisolone (Solu-Medrol) 30 mg IVP Q12 YESENIA Last Admin: 11/19/17 10:07 Dose: 30 mg Metoprolol Tartrate (Lopressor) 25 mg PO Q12 [facility] Multivitamins/Vitamin C (Multi-Delyn Liquid) 15 ml PO DAILY [facility] Last Admin: 11/19/17 10:06 Dose: 15 ml Pantoprazole Sodium (Protonix Ec Tab) 40 mg PO DAILY [facility] Last Admin: 11/19/17 10:07 Dose: 40 mg Ramipril (Altace) 2.5 mg PO BID [facility] Last Admin: 11/19/17 10:04 Dose: Not Given Thiamine HCl (Vitamin B1 Tab) 100 mg PO DAILY [facility] Last Admin: 11/19/17 10:07 Dose: 100 mg - Labs Labs: 11/19/17 04:20 11/19/17 04:20 PT 15.2 Seconds (9.8-13.1) H 11/14/17 04:20 INR 1.4 (0.9-1.2) H 11/14/17 04:20 APTT 34.8 Seconds (25.6-37.1) 11/14/17 04:20 - Constitutional Appears: Chronically Ill - Head Exam Head Exam: NORMAL INSPECTION - Eye Exam Eye Exam: PERRL - ENT Exam ENT Exam: Normal Exam - Neck Exam Neck Exam: Normal Inspection - Respiratory Exam Respiratory Exam: Decreased Breath Sounds - Cardiovascular Exam Cardiovascular Exam: Irregular Rhythm - GI/Abdominal Exam GI & Abdominal Exam: Soft, Normal Bowel Sounds - Extremities Exam Extremities Exam: Normal Inspection - Neurological Exam Neurological Exam: Alert Additional comments: no focal motor/sensory deficit - Psychiatric Exam Psychiatric exam: Anxious - Skin Skin Exam: Warm Assessment and Plan (1) Respiratory failure Status: Acute (2) Atrial fibrillation with RVR Status: Acute (3) COPD exacerbation Status: Acute (4) Staphylococcal pneumonia Status: Acute (5) CHF (congestive heart failure) Status: Acute (6) Sepsis Status: Acute (7) Metabolic alkalosis Status: Acute - Assessment and Plan (Free Text) Plan: continue Cipro, DuoNeb , Lasix , Furosemide , Diamox , Digoxin , Metropolol and rest of treatment , nurses and Family reported cough , dysphagia with puree diet and thickened fluids , to have Barium swallow.
[2017-11-19] MEDS ORDERED: Albuterol-Ipratrop 3 mg / 0.5 (3 ml) UD INH STA (23:13)
[2017-11-20] MEDS: Albuterol-Ipratrop 3 mg / 0.5 (3 ml) UD INH SCH ×5 (05:07→19:31)
[2017-11-20 05:13] LABS: HEMOGLOBIN 11.1 g/dL (12.0-18.0); MEAN CELL VOLUME 91.5 fl (80.0-94.0); MEAN CORPUSCULAR HEMOGLOBIN 28.9 pg (27.0-31.0); MEAN CORPUSCULAR HGB CONC 31.6 g/dL (33.0-37.0); RBC 3.84 Mil/uL (4.40-5.90); RED CELL DISTRIBUTION WIDTH 16.9 % (11.5-14.5); WHITE BLOOD COUNT 11.6 K/uL (4.8-10.8)
[2017-11-20 05:16] LABS: BLOOD UREA NITROGEN 32 mg/dl (9-20); CALCIUM 8.3 mg/dL (8.4-10.2); GFR AFRICAN-AMERICAN > 60; GFR NON-AFRICAN AMERICAN > 60
[2017-11-20] MEDS: Insulin Lispro (humaLOG) 100 Units/ml Inj SC SCH ×4 (06:11→23:05)
[2017-11-20] MEDS: Pantoprazole 40 mg EC Tab PO SCH (08:22)
[2017-11-20] MEDS: Multi Vitamins 15 mL UD Oral Solution PO SCH (08:24)
[2017-11-20] MEDS: Digoxin 125 mcg (0.125 mg) Tab PO SCH (08:25)
[2017-11-20] MEDS: MethylPREDNISolone 40 mg Vial IVP SCH ×2 (08:25→21:19)
[2017-11-20] MEDS: Ciprofloxacin 400mg/200ml D5W 400 MG/200 ML BAG IVPB SCH ×2 (08:53→21:21)
--- NOTE | 2017-11-20 12:15 | RAD ---
PROCEDURE: Modified barium swallow study. HISTORY: difficulty swallowing COMPARISON: None available. TECHNIQUE: Under fluoroscopic guidance, barium meals of various consistency were administered to the patient by the speech pathologist. 291.8 seconds of fluoro time was utilized. FINDINGS: Although there is a marked oral delay, no penetration or aspiration was observed during this study. IMPRESSION: No penetration or aspiration observed. Marked oral delay. Please refer to the detailed report and recommendations of the speech pathologist.
--- NOTE | 2017-11-20 15:15 | CP.PCM.PN ---
Subjective - Date & Time of Evaluation Date of Evaluation: 11/20/17 Time of Evaluation: 12:00 - Subjective Subjective: no SOB , no cough Objective - Vital Signs/Intake and Output Vital Signs (last 24 hours): Temp Pulse Resp BP Pulse Ox 97.4 F L 88 19 86/59 L 100 11/20/17 12:00 11/20/17 14:00 11/20/17 14:00 11/20/17 14:00 11/20/17 14:00 Intake and Output: 11/20/17 11/20/17 06:59 18:59 Intake Total 160 680 Output Total 1200 Balance -1040 680 - Medications Medications: Current Medications Acetazolamide (Diamox 250 Mg Tab) 250 mg PO BID [facility] Last Admin: 11/20/17 08:22 Dose: 250 mg Albuterol/Ipratropium (Duoneb 3 Mg/0.5 Mg (3 Ml) Ud) 3 ml INH RQ4 [facility] Last Admin: 11/20/17 11:08 Dose: 3 ml Apixaban (Eliquis) 2.5 mg PO BID [facility] PRN Reason: Protocol Last Admin: 11/20/17 08:23 Dose: 2.5 mg Ascorbic Acid (Vitamin C 500 Mg Tab) 1,000 mg PO DAILY [facility] Last Admin: 11/20/17 08:26 Dose: 1,000 mg Digoxin (Digoxin) 0.125 mg PO DAILY [facility] Last Admin: 11/20/17 08:25 Dose: 0.125 mg Furosemide (Lasix) 20 mg IVP BID [facility] Last Admin: 11/20/17 08:23 Dose: Not Given Ciprofloxacin (Cipro 400mg/200ml Dsw) 400 mg in 200 mls @ 200 mls/hr IVPB Q12 [facility]ENIA PRN Reason: Protocol Last Admin: 11/20/17 08:53 Dose: 200 mls/hr Insulin Human Lispro (Humalog) 0 units SC Q6H [facility]IA PRN Reason: Protocol Last Admin: 11/20/17 11:49 Dose: 1 unit Methylprednisolone (Solu-Medrol) 30 mg IVP Q12 [facility] Last Admin: 11/20/17 08:25 Dose: 30 mg Metoprolol Tartrate (Lopressor) 25 mg PO Q12 [facility] Last Admin: 11/20/17 08:24 Dose: Not Given Multivitamins/Vitamin C (Multi-Delyn Liquid) 15 ml PO DAILY [facility] Last Admin: 11/20/17 08:24 Dose: 15 ml Pantoprazole Sodium (Protonix Ec Tab) 40 mg PO DAILY [facility] Last Admin: 11/20/17 08:22 Dose: 40 mg Ramipril (Altace) 2.5 mg PO BID [facility] Last Admin: 11/20/17 08:53 Dose: Not Given Thiamine HCl (Vitamin B1 Tab) 100 mg PO DAILY [facility] Last Admin: 11/20/17 08:24 Dose: 100 mg - Labs Labs: 11/20/17 04:20 11/20/17 04:20 PT 15.2 Seconds (9.8-13.1) H 11/14/17 04:20 INR 1.4 (0.9-1.2) H 11/14/17 04:20 APTT 34.8 Seconds (25.6-37.1) 11/14/17 04:20 - Constitutional Appears: Chronically Ill - Head Exam Head Exam: NORMAL INSPECTION - Eye Exam Eye Exam: PERRL - ENT Exam ENT Exam: Normal Exam - Neck Exam Neck Exam: Normal Inspection - Respiratory Exam Respiratory Exam: Decreased Breath Sounds (at bases) - Cardiovascular Exam Cardiovascular Exam: Irregular Rhythm - GI/Abdominal Exam GI & Abdominal Exam: Soft, Normal Bowel Sounds - Extremities Exam Extremities Exam: Normal Inspection - Back Exam Back Exam: NORMAL INSPECTION - Neurological Exam Neurological Exam: Awake Additional comments: no focal motor/sensory deficit , generalized weakness - Psychiatric Exam Psychiatric exam: Anxious - Skin Skin Exam: Warm Assessment and Plan (1) Respiratory failure Status: Acute (2) Atrial fibrillation with RVR Status: Acute (3) COPD exacerbation Status: Acute (4) Staphylococcal pneumonia Status: Acute (5) CHF (congestive heart failure) Status: Acute (6) Sepsis Status: Acute (7) Metabolic alkalosis Status: Acute - Assessment and Plan (Free Text) Plan: Ba swallow marked oral delay, no penetration or aspiration , Patient on puree diet , continue Cipro , Solu Medrol , Duo Neb , Digoxin , Lasix , Eliquis Lopressor , PT and rest of treatment
--- NOTE | 2017-11-20 15:42 | CP.CCUPN ---
CCU Subjective - Physician Review Subjective (Free Text): Patient returned to BiPAP support overnight however at approximately 2 AM began refusing BiPAP and placed on nasal cannula. So far has tolerated nasal cannula up tilll this point of the day and remains comfortable. at the bedside does report SOB whenever he moves around. Other Vitals and I/Os reviewed. No Fever spikes overnight. He has been in negative fluid balance of 1.6 L over the last 24 hours. ROS: No other pertinent negs or positives on 10+ system review. PMSFH: All other historical Nursing and physician documentation reviewed to date; no new pertinent info noted relevant to current medical problems. EXAM- HEENT: no icterus, no gaze preference, pupils equal and reactive, no icterus. NECK: No JVD, supple, carotids equal upstroke bilat/no bruits CHEST: decreased BS bases, otherwise clear bilat, no wheezes audible HEART: irregular, distant, S1S2, no rubs or murmurs ABD: soft, no distention, no tympany, no palp tenderness, BS hypoactive. EXT: Bilat edema. No peripheral/ digital cyanosis, no calf tenderness or palpable cords, distal pulses intact and symmetrical. NEURO: no gross focal motor deficits. SKIN: no rashes, warm and dry. CXR: (my interp)- none obtained today, last film from 11/16 reviewed showing persistent bibasilar INTERSTITIAL changes. LABS: WBC= 11.6 HGB= 11.1 PLTs= 194 K Na= 138 K= 4.4 CL= 98 HCO3=34 BUN/Cr= 32/0.8 BS= 226 MAJOR PROBLEMS: 1. Acute Hypoxemic Resp failure 2. Bilateral Pneumonia 3. Systolic CHF 4. s/p Hypernatremia / Azotemia 5. Rate Controlled Atrial Fib, on AC. PLAN: 1. Changes in medication made by Cardiology noted. 2. Ongoing Lasix 20 mg IV twice a day to keep negative fluid balance. 3. Resolved Hypernatremia 4. Sputum culture from November 09 shows growth of staph aureus which is sensitive to his current antibiotic regimen of Cipro. 5. So far has no vertigo needed for assisted breathing support with mechanical ventilation, now awaiting telemetry bed. CCU Objective - Vital Signs / Intake & Output Vital Signs (Last 4 hours): Vital Signs Temp Pulse Resp BP Pulse Ox 11/20/17 14:00 88 19 86/59 L 100 11/20/17 13:00 92 H 16 83/48 L 100 11/20/17 12:00 97.4 F L 81 16 78/55 L 100 Intake and Output (Last 8hrs): Intake & Output 11/20/17 11/20/17 11/20/17 06:59 14:59 22:59 Intake Total 140 680 Output Total 800 Balance -660 680 Weight 129 lb Intake: IV 140 Intake, Piggyback 200 Oral 480 Output: Urine 800 Condom 800 Review of Systems - Review of Systems All systems: reviewed and no additional remarkable complaints except (as above) Critical Care Progress Note - Nutrition Nutrition: Nutrition Category Date Time Status Dysphagia/Modified Consistency Diet [DIET] Diets 11/13/17 Breakfast Active
[2017-11-21] MEDS: Albuterol-Ipratrop 3 mg / 0.5 (3 ml) UD INH SCH ×7 (00:21→23:38)
[2017-11-21] MEDS: Insulin Lispro (humaLOG) 100 Units/ml Inj SC SCH ×3 (06:58→17:25)
[2017-11-21] MEDS: MethylPREDNISolone 40 mg Vial IVP SCH ×2 (08:56→21:26)
[2017-11-21] MEDS: Multi Vitamins 15 mL UD Oral Solution PO SCH (08:56)
[2017-11-21] MEDS: Digoxin 125 mcg (0.125 mg) Tab PO SCH (08:58)
[2017-11-21] MEDS: Pantoprazole 40 mg EC Tab PO SCH (09:01)
--- NOTE | 2017-11-21 10:33 | CP.CCUPN ---
CCU Subjective - Physician Review Subjective (Free Text): Uneventful night except for refusal to continue on BiPAP support after a few hours, requested to take the mask and has been on nasal cannula oxygen with stable oxygen saturation at 100% on 4 L nasal cannula. Other Vitals and I/Os reviewed. No Fever spikes overnight. Fluid balance last 4 hours has been essentially even. Blood pressure levels remained borderline at 81/54, heart rate has been stable at approximately 90-100/min. ROS: No other pertinent negs or positives on 10+ system review. PMSFH: All other historical Nursing and physician documentation reviewed to date; no new pertinent info noted relevant to current medical problems. EXAM- HEENT: no icterus, no gaze preference, pupils equal and reactive, no icterus. NECK: No JVD, supple, carotids equal upstroke bilat/no bruits CHEST: decreased BS bases, otherwise clear bilat, no wheezes audible HEART: irregular, distant, S1S2, no rubs or murmurs ABD: soft, no distention, no tympany, no palp tenderness, BS hypoactive. EXT: Bilat edema. No peripheral/ digital cyanosis, no calf tenderness or palpable cords, distal pulses intact and symmetrical. NEURO: no gross focal motor deficits. SKIN: no rashes, warm and dry. CXR: (my interp)- none obtained today, last film from 11/16 reviewed showing persistent bibasilar INTERSTITIAL changes. LABS: Blood work as listed below represent yesterday's values WBC= 11.6 HGB= 11.1 PLTs= 194 K Na= 138 K= 4.4 CL= 98 HCO3=34 BUN/Cr= 32/0.8 BS= 226 MAJOR PROBLEMS: 1. Acute Hypoxemic Resp failure 2. Bilateral Pneumonia 3. Systolic CHF 4. s/p Hypernatremia / Azotemia 5. Rate Controlled Atrial Fib, on AC. PLAN: 1. Changes in medication made by Cardiology noted. 2. Consider reducing Lasix to once a day dosing 3. Resolved Hypernatremia 4. Sputum culture from November 09 shows growth of staph aureus which is sensitive to his current antibiotic regimen of Cipro. 5. So far has averted need for assisted breathing support with mechanical ventilation, now awaiting telemetry bed. CCU Objective - Vital Signs / Intake & Output Vital Signs (Last 4 hours): Vital Signs Temp Pulse Resp BP Pulse Ox 03/22/18 09:16 81/54 L 11/21/17 09:00 96 H 81/54 L 11/21/17 08:57 81/54 L 11/21/17 08:50 98.1 F 80 16 81/54 L 100 Intake and Output (Last 8hrs): Intake & Output 11/20/17 11/21/17 11/21/17 22:59 06:59 14:59 Intake Total 50 340 Output Total 1100 Balance -1050 340 Intake: IV 220 Oral 50 120 Output: Urine 1100 Condom 1100 Other: # Voids Condom 200 - Physical Exam Lower Extremity: Negative for: CALF TENDERNESS, Cyanosis Critical Care Progress Note - Nutrition Nutrition: Nutrition Category Date Time Status Dysphagia/Modified Consistency Diet [DIET] Diets 11/13/17 Breakfast Active
--- NOTE | 2017-11-21 17:51 | CP.PCM.PN ---
Subjective - Date & Time of Evaluation Date of Evaluation: 11/21/17 Time of Evaluation: 12:40 - Subjective Subjective: F/U Respiratory Failure. OOB in chair , no AD ,no SOB , no Chest congestion , on NC 3L/m Objective - Vital Signs/Intake and Output Vital Signs (last 24 hours): Temp Pulse Resp BP Pulse Ox 97.7 F 100 H 20 89/57 L 99 11/21/17 16:31 11/21/17 17:00 11/21/17 17:00 11/21/17 17:24 11/21/17 17:00 Intake and Output: 11/21/17 11/21/17 06:59 18:59 Intake Total 340 10 Balance 340 10 - Medications Medications: Current Medications Acetazolamide (Diamox 250 Mg Tab) 250 mg PO BID [facility] Last Admin: 11/21/17 17:21 Dose: 250 mg Albuterol/Ipratropium (Duoneb 3 Mg/0.5 Mg (3 Ml) Ud) 3 ml INH RQ4 [facility] Last Admin: 11/21/17 16:13 Dose: 3 ml Apixaban (Eliquis) 2.5 mg PO BID [facility] PRN Reason: Protocol Last Admin: 11/21/17 17:22 Dose: 2.5 mg Ascorbic Acid (Vitamin C 500 Mg Tab) 1,000 mg PO DAILY [facility] Last Admin: 11/21/17 09:01 Dose: 1,000 mg Digoxin (Digoxin) 0.125 mg PO DAILY [facility] Last Admin: 11/21/17 08:58 Dose: 0.125 mg Furosemide (Lasix) 20 mg IVP BID [facility] Last Admin: 11/21/17 17:23 Dose: Not Given Insulin Human Lispro (Humalog) 0 units SC Q6H [facility] PRN Reason: Protocol Last Admin: 11/21/17 17:25 Dose: 1 unit Methylprednisolone (Solu-Medrol) 30 mg IVP Q12 [facility] Last Admin: 11/21/17 08:56 Dose: 30 mg Metoprolol Tartrate (Lopressor) 25 mg PO Q12 [facility] Last Admin: 11/21/17 09:00 Dose: Not Given Multivitamins/Vitamin C (Multi-Delyn Liquid) 15 ml PO DAILY [facility] Last Admin: 11/21/17 08:56 Dose: 15 ml Pantoprazole Sodium (Protonix Ec Tab) 40 mg PO DAILY [facility] Last Admin: 11/21/17 09:01 Dose: 40 mg Ramipril (Altace) 2.5 mg PO BID [facility] Last Admin: 11/21/17 17:24 Dose: Not Given Thiamine HCl (Vitamin B1 Tab) 100 mg PO DAILY [facility] Last Admin: 11/21/17 08:56 Dose: 100 mg - Labs Labs: 11/20/17 04:20 11/20/17 04:20 PT 15.2 Seconds (9.8-13.1) H 11/14/17 04:20 INR 1.4 (0.9-1.2) H 11/14/17 04:20 APTT 34.8 Seconds (25.6-37.1) 11/14/17 04:20 - Constitutional Appears: Chronically Ill - Head Exam Head Exam: NORMAL INSPECTION - Eye Exam Eye Exam: PERRL - ENT Exam ENT Exam: Normal Exam - Neck Exam Neck Exam: Normal Inspection - Respiratory Exam Respiratory Exam: Decreased Breath Sounds (at bases) - Cardiovascular Exam Cardiovascular Exam: Irregular Rhythm - GI/Abdominal Exam GI & Abdominal Exam: Soft, Normal Bowel Sounds - Extremities Exam Extremities Exam: Normal Inspection - Back Exam Back Exam: NORMAL INSPECTION - Neurological Exam Neurological Exam: Awake Additional comments: No focal motor sensory deficit. Generalized weakness. - Psychiatric Exam Psychiatric exam: Anxious - Skin Skin Exam: Warm Assessment and Plan (1) Respiratory failure Status: Acute (2) Atrial fibrillation with RVR Status: Acute (3) COPD exacerbation Status: Acute (4) Staphylococcal pneumonia Status: Acute (5) CHF (congestive heart failure) Status: Acute (6) Sepsis Status: Acute (7) Metabolic alkalosis Status: Acute - Assessment and Plan (Free Text) Plan: used BIPAP previously , back on N/C 3/Lm , continue Digoxin , Eliquis , Lasix , Lopressor , DuoNeb , taper Solumedrol, transfer to 4th N Telemetry
[2017-11-22] MEDS: Albuterol-Ipratrop 3 mg / 0.5 (3 ml) UD INH SCH ×5 (04:45→19:56)
[2017-11-22] MEDS: Insulin Lispro (humaLOG) 100 Units/ml Inj SC SCH ×4 (06:28→17:00)
[2017-11-22] MEDS: Digoxin 125 mcg (0.125 mg) Tab PO SCH (08:57)
[2017-11-22] MEDS: Multi Vitamins 15 mL UD Oral Solution PO SCH (09:00)
[2017-11-22] MEDS: Pantoprazole 40 mg EC Tab PO SCH (09:01)
[2017-11-22] MEDS: MethylPREDNISolone 40 mg Vial IVP SCH (09:01)
[2017-11-22 11:57] LABS: ABG ALLEN TEST YES; ARTERIAL BLOOD GAS HCO3 27.2 mmol/L (21-28); ARTERIAL BLOOD GAS HEMOGLOBIN 11.7 g/dL (11.7-17.4); ARTERIAL BLOOD GAS O2 CAPACITY 16.4 mL/dL (16-24); ARTERIAL BLOOD GAS O2 CONTENT 16.4 ML/dL (15-23); ARTERIAL BLOOD GAS O2 SAT 99.7 % (95-98); ARTERIAL BLOOD GAS PCO2 47 mm/Hg (35-45); ARTERIAL BLOOD GAS PH 7.39 (7.35-7.45); ARTERIAL BLOOD GAS PO2 194 mm/Hg (80-100); ARTERIAL BLOOD GAS TCO2 29.9 mmol/L (22-28)
--- NOTE | 2017-11-22 12:05 | CP.PCM.PN ---
Objective - Vital Signs/Intake and Output Vital Signs (last 24 hours): Temp Pulse Resp BP Pulse Ox 97.3 F L 84 20 83/54 L 100 11/22/17 08:06 11/22/17 09:00 11/22/17 08:06 11/22/17 09:00 11/22/17 08:06 - Medications Medications: Current Medications Acetazolamide (Diamox 250 Mg Tab) 250 mg PO BID [facility] Last Admin: 11/22/17 08:56 Dose: 250 mg Albuterol/Ipratropium (Duoneb 3 Mg/0.5 Mg (3 Ml) Ud) 3 ml INH RQ4 [facility] Last Admin: 11/22/17 12:03 Dose: 3 ml Apixaban (Eliquis) 2.5 mg PO BID [facility] PRN Reason: Protocol Last Admin: 11/22/17 08:59 Dose: 2.5 mg Ascorbic Acid (Vitamin C 500 Mg Tab) 1,000 mg PO DAILY [facility] Last Admin: 11/22/17 09:01 Dose: 1,000 mg Digoxin (Digoxin) 0.125 mg PO DAILY [facility] Last Admin: 11/22/17 08:57 Dose: 0.125 mg Furosemide (Lasix) 20 mg IVP DAILY [facility] Insulin Human Lispro (Humalog) 0 units SC Q6H [facility] PRN Reason: Protocol Last Admin: 11/22/17 06:28 Dose: 1 unit Methylprednisolone (Solu-Medrol) 30 mg IVP Q12 [facility] Last Admin: 11/22/17 09:01 Dose: 30 mg Metoprolol Tartrate (Lopressor) 25 mg PO DAILY [facility] Multivitamins/Vitamin C (Multi-Delyn Liquid) 15 ml PO DAILY [facility] Last Admin: 11/22/17 09:00 Dose: 15 ml Pantoprazole Sodium (Protonix Ec Tab) 40 mg PO DAILY [facility] Last Admin: 11/22/17 09:01 Dose: 40 mg Ramipril (Altace) 2.5 mg PO DAILY [facility] Thiamine HCl (Vitamin B1 Tab) 100 mg PO DAILY [facility] Last Admin: 11/22/17 09:01 Dose: 100 mg - Labs Labs: 11/20/17 04:20 11/20/17 04:20 PT 15.2 Seconds (9.8-13.1) H 11/14/17 04:20 INR 1.4 (0.9-1.2) H 11/14/17 04:20 APTT 34.8 Seconds (25.6-37.1) 11/14/17 04:20 Assessment and Plan (1) Respiratory failure Status: Acute (2) Atrial fibrillation with RVR Status: Acute (3) COPD exacerbation Status: Acute (4) Staphylococcal pneumonia Status: Acute (5) CHF (congestive heart failure) Status: Acute (6) Sepsis Status: Acute (7) Metabolic alkalosis Status: Acute
--- NOTE | 2017-11-22 12:50 | RAD ---
HISTORY: pneumonia COMPARISON: Frontal chest radiograph 11/16/2017. FINDINGS: LUNGS: Prior right central venous line has been removed. No definite right-sided infiltrate identified. Bilateral partial calcified pleural plaques limit evaluation of the lungs in general with reduced or possibly resolved infiltrate at the mid to inferior left lung zone. PLEURA: Extensive partially calcified pleural plaque obscures the right costophrenic sulcus/base laterally. No left pleural effusion. No pneumothorax bilaterally. Prominent right apical fibrosis is reiterated. CARDIOVASCULAR: Stable cardiomegaly. No pulmonary vascular derangement. OSSEOUS STRUCTURES: No significant abnormalities. VISUALIZED UPPER ABDOMEN: Normal. OTHER FINDINGS: None. IMPRESSION: Likely resolution of infiltrate at the inferior right lung zone with marked improvement at the left. The left side may be approaching baseline. Is difficult to evaluate due to extensive fibrosis/pleural plaques and related calcifications. Stable cardiomegaly.
[2017-11-22 13:14] LABS: BASO % 0.2 % (0.0-2.0); HEMOGLOBIN 11.5 g/dL (12.0-18.0); LYMPH # 0.5 K/uL (1.0-4.3); LYMPH % 2.6 % (20.0-40.0); MEAN CELL VOLUME 92.7 fl (80.0-94.0); MEAN CORPUSCULAR HGB CONC 31.3 g/dL (33.0-37.0); MEAN PLATELET VOLUME 7.9 fl (7.2-11.7); MONO # 0.9 K/uL (0.0-0.8); MONO % 5.1 % (0.0-10.0); NEUT # 16.4 K/uL (1.8-7.0); NEUT % 92.1 % (50.0-75.0); PLATELET COUNT 189 K/uL (130-400); RBC 3.98 Mil/uL (4.40-5.90); RED CELL DISTRIBUTION WIDTH 17.6 % (11.5-14.5); WHITE BLOOD COUNT 17.8 K/uL (4.8-10.8)
[2017-11-22 13:28] LABS: CALCIUM 8.4 mg/dL (8.4-10.2)
[2017-11-22 13:29] LABS: ALB/GLOB RATIO 0.8 (1.0-2.1); ALBUMIN 2.6 g/dL (3.5-5.0); ALT/SGPT 71 U/L (21-72); AST/SGOT 16 U/L (17-59); BLOOD UREA NITROGEN 30 mg/dl (9-20); GFR AFRICAN-AMERICAN > 60; GFR NON-AFRICAN AMERICAN > 60
[2017-11-22 15:33] LABS: ANISOCYTOSIS SLIGHT; HYPOCHROMIC SLIGHT; LYMPHOCYTE 2 % (20-50); MONOCYTE 4 % (0-10); NEUTROPHIL 94 % (42-75); PLATELET ESTIMATE NORMAL (NORMAL); TOTAL CELLS COUNTED 100
[2017-11-22 15:34] LABS: OVALOCYTES SLIGHT
[2017-11-23] MEDS: Albuterol-Ipratrop 3 mg / 0.5 (3 ml) UD INH SCH ×4 (00:19→11:08)
[2017-11-23] MEDS: Insulin Lispro (humaLOG) 100 Units/ml Inj SC SCH ×3 (06:44→12:05)
[2017-11-23] MEDS: Multi Vitamins 15 mL UD Oral Solution PO SCH (08:37)
[2017-11-23] MEDS: Pantoprazole 40 mg EC Tab PO SCH (08:37)
[2017-11-23] MEDS: Digoxin 125 mcg (0.125 mg) Tab PO SCH (08:38)
[2017-11-23 08:39] VITALS: PULSE 90
[2017-11-23 08:45] VITALS: O2SAT 100
[2017-11-23] MEDS ORDERED: MethylPREDNISolone 40 mg Vial IVP SCH (09:00)
[2017-11-23 12:26] VITALS: RESP 18; TEMP 97.4
[2017-11-23 13:25] VITALS: BP 94/63; PULSE 83
--- NOTE | 2017-11-23 14:10 | CP.PCM.DIS ---
Provider - Provider Date of Admission: 11/08/17 14:44 Attending physician: Jasper Blake MD Diagnosis - Discharge Diagnosis (1) Respiratory failure Status: Acute Priority: High (2) Atrial fibrillation with RVR Status: Acute Priority: High (3) COPD exacerbation Status: Acute Priority: High (4) Staphylococcal pneumonia Status: Acute (5) CHF (congestive heart failure) Status: Acute (6) Sepsis Status: Acute (7) Metabolic alkalosis Status: Acute Hospital Course - Lab Results Lab Results: Micro Results 11/21/17 20:15 [facility] MRSA Culture (Admit) - Final MRSA NOT DETECTED 11/08/17 15:18 Blood Blood Culture - Final NO GROWTH AFTER 5 DAYS 11/08/17 15:18 Blood Gram Stain - Final TEST NOT PERFORMED 11/09/17 17:38 Trachasp Gram Stain - Final 11/09/17 17:38 Trachasp Sputum Culture - Final Staphylococcus Aureus 11/08/17 00:10 [facility] MRSA Culture (Admit) - Final MRSA NOT DETECTED Most Recent Lab Values WBC 17.8 K/uL (4.8-10.8) H D 11/22/17 13:09 RBC 3.98 Mil/uL (4.40-5.90) L 11/22/17 13:09 Hgb 11.5 g/dL (12.0-18.0) L 11/22/17 13:09 Hct 36.9 % (35.0-51.0) 11/22/17 13:09 MCV 92.7 fl (80.0-94.0) 11/22/17 13:09 MCH 29.0 pg (27.0-31.0) 11/22/17 13:09 MCHC 31.3 g/dL (33.0-37.0) L 11/22/17 13:09 RDW 17.6 % (11.5-14.5) H 11/22/17 13:09 Plt Count 189 K/uL (130-400) 11/22/17 13:09 MPV 7.9 fl (7.2-11.7) 11/22/17 13:09 Neut % (Auto) 92.1 % (50.0-75.0) H 11/22/17 13:09 Lymph % (Auto) 2.6 % (20.0-40.0) L 11/22/17 13:09 [place] % (Auto) 5.1 % (0.0-10.0) 11/22/17 13:09 Eos % (Auto) 0.0 % (0.0-4.0) 11/22/17 13:09 Baso % (Auto) 0.2 % (0.0-2.0) 11/22/17 13:09 Neut # (Auto) 16.4 K/uL (1.8-7.0) H 11/22/17 13:09 Lymph # (Auto) 0.5 K/uL (1.0-4.3) L 11/22/17 13:09 [place] # (Auto) 0.9 K/uL (0.0-0.8) H 11/22/17 13:09 Eos # (Auto) 0.0 K/uL (0.0-0.7) 11/22/17 13:09 Baso # (Auto) 0.0 K/uL (0.0-0.2) 11/22/17 13:09 Neutrophils % (Manual) 94 % (42-75) H 11/22/17 13:09 Band Neutrophils % 1 % (0-2) 11/17/17 04:28 Lymphocytes % (Manual) 2 % (20-50) L 11/22/17 13:09 Monocytes % (Manual) 4 % (0-10) 11/22/17 13:09 Toxic Granulation Present 11/14/17 04:20 Platelet Estimate Normal (NORMAL) 11/22/17 13:09 Plt Clumps, EDTA Present 11/18/17 05:30 Hypochromasia (manual) Slight 11/22/17 13:09 Anisocytosis (manual) Slight 11/22/17 13:09 Tear Drop Cells Slight 11/17/17 04:28 Ovalocytes Slight 11/22/17 13:09 PT 15.2 Seconds (9.8-13.1) H 11/14/17 04:20 INR 1.4 (0.9-1.2) H 11/14/17 04:20 APTT 34.8 Seconds (25.6-37.1) 11/14/17 04:20 pCO2 47 mm/Hg (35-45) H 11/22/17 11:15 pO2 194 mm/Hg (80-100) H 11/22/17 11:15 HCO3 27.2 mmol/L (21-28) 11/22/17 11:15 ABG pH 7.39 (7.35-7.45) 11/22/17 11:15 ABG Total CO2 29.9 mmol/L (22-28) H 11/22/17 11:15 ABG O2 Saturation 99.7 % (95-98) H 11/22/17 11:15 ABG O2 Content 16.4 ML/dL (15-23) 11/22/17 11:15 ABG Base Excess 2.9 mmol/L (-2.0-3.0) 11/22/17 11:15 ABG Hemoglobin 11.7 g/dL (11.7-17.4) 11/22/17 11:15 ABG Carboxyhemoglobin 1.8 % (0.5-1.5) H 11/22/17 11:15 POC ABG HHb (Measured) 0.3 % (0.0-5.0) 11/22/17 11:15 ABG Methemoglobin 1.0 % (0.0-3.0) 11/22/17 11:15 ABG O2 Capacity 16.4 mL/dL (16-24) 11/22/17 11:15 Garrick Test Yes 11/22/17 11:15 ABG Potassium 3.5 mmol/L (3.6-5.2) L 11/14/17 00:02 VBG pH 7.30 (7.32-7.43) L 11/14/17 09:30 VBG pCO2 68 mmHg (40-60) H* 11/14/17 09:30 VBG HCO3 28.1 mmol/L 11/14/17 09:30 VBG Total CO2 35.6 mmol/L (22-28) H 11/14/17 09:30 VBG O2 Sat (Calc) 82.8 % (40-65) H 11/14/17 09:30 VBG Base Excess 4.8 mmol/L (0.0-2.0) H 11/14/17 09:30 VBG Potassium 2.9 mmol/L (3.6-5.2) L 11/14/17 09:30 A-a O2 Difference -25.0 mm/Hg 11/22/17 11:15 Hgb O2 Saturation 96.8 % (95.0-98.0) 11/22/17 11:15 Sodium 150.0 mmol/L (132-148) H 11/14/17 09:30 Chloride 117.0 mmol/L (98-107) H 11/14/17 09:30 Glucose 122 mg/dL (75-110) H 11/14/17 09:30 Lactate 0.9 mmol/L (0.7-2.1) 11/14/17 09:30 Liter Flow 3 11/22/17 11:15 Vent Mode Nc 11/22/17 11:15 Mechanical Rate 15 11/16/17 05:20 FiO2 32.0 % 11/22/17 11:15 Tidal Volume 400 11/10/17 05:22 PEEP 5 11/10/17 05:22 Inspiratory BiPAP 16 11/16/17 05:20 Expiratory BiPAP 7 11/16/17 05:20 Blood Gas Comments Lactate 2.2 11/08/17 21:53 Crit Value Called To Jose Raul sparrow 11/14/17 09:30 Crit Value Called By 23 11/14/17 09:30 Crit Value Read Back Y 11/14/17 09:30 Blood Gas Notified Time 935 11/14/17 09:30 Sodium 141 mmol/l (132-148) 11/22/17 13:09 Potassium 4.1 MMOL/L (3.6-5.0) 11/22/17 13:09 Chloride 107 mmol/L (98-107) 11/22/17 13:09 Carbon Dioxide 26 mmol/L (22-30) 11/22/17 13:09 Anion Gap 12 (10-20) 11/22/17 13:09 BUN 30 mg/dl (9-20) H 11/22/17 13:09 Creatinine 0.9 mg/dl (0.8-1.5) 11/22/17 13:09 Est GFR ( Amer) > 60 11/22/17 13:09 Est GFR (Non-Af Amer) > 60 11/22/17 13:09 POC Glucose (mg/dL) 171 mg/dL (65-110) H 11/23/17 11:10 Random Glucose 196 mg/dL (75-110) H 11/22/17 13:09 Hemoglobin A1c 6.9 % (4.2-6.5) H 11/09/17 04:19 Serum Osmolality 336 mosm/kg (272-300) H 11/14/17 04:20 Lactic Acid 1.4 MMOL/L (0.7-2.1) 11/09/17 09:30 Calcium 8.4 mg/dL (8.4-10.2) 11/22/17 13:09 Phosphorus 3.7 mg/dl (2.5-4.5) 11/10/17 05:30 Magnesium 2.1 MG/DL (1.6-2.3) 11/10/17 05:30 Iron 63 ug/dL (49-181) 11/09/17 04:19 TIBC 240 ug/dL (250-450) L 11/09/17 04:19 % Saturation 26 % (20-55) 11/09/17 04:19 Total Bilirubin 0.8 mg/dl (0.2-1.3) 11/22/17 13:09 AST 16 U/L (17-59) L D 11/22/17 13:09 ALT 71 U/L (21-72) 11/22/17 13:09 Alkaline Phosphatase 70 U/L (38-126) 11/22/17 13:09 Troponin I 0.1060 ng/mL (0.00-0.120) 11/09/17 08:09 NT-Pro-B Natriuret Pep 59914 pg/ml (0-900) H 11/08/17 22:29 Total Protein 5.9 G/DL (6.3-8.2) L 11/22/17 13:09 Albumin 2.6 g/dL (3.5-5.0) L 11/22/17 13:09 Globulin 3.4 gm/dL (2.2-3.9) 11/22/17 13:09 Albumin/Globulin Ratio 0.8 (1.0-2.1) L 11/22/17 13:09 Vitamin B12 > 1000 pg/mL (239-931) H 11/09/17 04:19 Folate 14.4 ng/mL 11/09/17 04:19 Procalcitonin 0.29 NG/ML (0.19-0.49) 11/08/17 15:18 Arterial Blood Potassium 3.5 mmol/L (3.6-5.2) L 11/14/17 00:02 Venous Blood Potassium 2.9 mmol/L (3.6-5.2) L 11/14/17 09:30 Random Vancomycin 34.5 ug/mL 11/10/17 11:00 Digoxin 1.0 ng/mL (0.8-2.0) 11/22/17 12:19 Urine Opiates Screen Negative (NEGATIVE) 11/08/17 18:10 Oxycodone Screen negative 11/08/17 19:29 Ur Oxycodone Comment See note 11/08/17 19:29 Urine Methadone Screen Negative (NEGATIVE) 11/08/17 18:10 Ur Barbiturates Screen Negative (NEGATIVE) 11/08/17 18:10 Ur Phencyclidine Scrn Negative (NEGATIVE) 11/08/17 18:10 Ur Amphetamines Screen Negative (NEGATIVE) 11/08/17 18:10 U Benzodiazepines Scrn Negative (NEGATIVE) 11/08/17 18:10 U Oth Cocaine Metabols Negative (NEGATIVE) 11/08/17 18:10 U Cannabinoids Screen Negative (NEGATIVE) 11/08/17 18:10 Influenza Typ A,B (EIA) Negative for flu a/b (NEGATIVE) 11/08/17 11:05 Ur L.pneumophila Ag Negative (NEGATIVE) 11/09/17 11:15 Discharge Exam - Head Exam Head Exam: NORMAL INSPECTION Discharge Plan - Discharge Medications Prescriptions: Furosemide [Lasix] 20 mg PO DAILY #10 tablet Methylprednisolone [Medrol Dose Pack (21 tabs)] 4 mg PO DAILY #21 mg - Follow Up Plan Condition: CRITICAL Disposition: HOME/ ROUTINE Instructions: Atrial Fibrillation (DC), Sepsis (DC)
== END 2017-11-23 15:17 | DRG 871 ==
LOC: H.ER 10:29 → H.ERHOLD 14:44 → H.ICU/CCU 20:13 → H.TEL 11-21 18:57
PROVIDERS: ADMIT Internal Medicine Pulmonary Disease; ATTEND Internal Medicine Pulmonary Disease
PROC: 5A1945Z Respiratory Ventilation, 24-96 Consecutive Hours (ICD-10-PCS; principal; 2017-11-08)
PROC: 0BH17EZ Insertion of Endotracheal Airway into Trachea, Via Natural or Artificial Opening (ICD-10-PCS; 2017-11-08)
PROC: 05HM33Z Insertion of Infusion Device into Right Internal Jugular Vein, Percutaneous Approach (ICD-10-PCS; 2017-11-09)
PROC: 3E0234Z Introduction of Serum, Toxoid and Vaccine into Muscle, Percutaneous Approach (ICD-10-PCS; 2017-11-10)
DX: A41.9 Sepsis, unspecified organism (principal); J96.01 Acute respiratory failure with hypoxia; J15.20 Pneumonia due to staphylococcus, unspecified; I50.21 Acute systolic (congestive) heart failure; E46 Unspecified protein-calorie malnutrition; E87.4 Mixed disorder of acid-base balance; N17.9 Acute kidney failure, unspecified; I13.0 Hypertensive heart and chronic kidney disease with heart failure and stage 1 through stage 4 chronic kidney disease, or unspecified chronic kidney disease; J47.0 Bronchiectasis with acute lower respiratory infection; R65.20 Severe sepsis without septic shock; I95.9 Hypotension, unspecified; D63.8 Anemia in other chronic diseases classified elsewhere; E86.0 Dehydration; I48.91 Unspecified atrial fibrillation; J84.10 Pulmonary fibrosis, unspecified; K75.89 Other specified inflammatory liver diseases; M19.90 Unspecified osteoarthritis, unspecified site; N18.9 Chronic kidney disease, unspecified; T50.2X5A Adverse effect of carbonic-anhydrase inhibitors, benzothiadiazides and other diuretics, initial encounter; Z79.01 Long term (current) use of anticoagulants; Z87.891 Personal history of nicotine dependence; Z91.14 Patient's other noncompliance with medication regimen; R73.9 Hyperglycemia, unspecified; R74.8 Abnormal levels of other serum enzymes; Z23 Encounter for immunization